=== PATIENT | female | born 2000 | race Caucasian/White ===

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

== ENCOUNTER 2022-01-25 06:36 | Outpatient (CLI) | payer MEDICAID, SELFPAY ==
[2022-01-25] VITALS (8 sets, daily range): BP systolic 107–117; BP diastolic 55–67; PULSE 88–111; RESP 16
--- NOTE | 2022-01-25 07:20 | US_ITS ---
WS: [id number] ULTRASOUND OB FOCUSED HISTORY: placenta evaluation/location. Cervical length. For bleeding COMPARISON: 12/23/2021 and 10/27/2021. Single intrauterine gestation in breech position. The cervix is closed measuring 4.7 cm in length. Ve ry similar to the prior study. The placenta is anterior with no previa or abruption. There is a hypoe choic area between the placenta and the uterine wall but similar to prior studies. No hemorrhage iden tified. Placenta is grade 2. Placenta ends 6 cm above the internal cervical os. heart rate at 144 BPM. Amniotic fluid index: 9.2 cm. Visually the amount of amniotic fluid appears appropriate. US/US OB limited [id number] IMPRESSION: 1. Breech position. 2. Cervix is closed. 3. Grade 2 placenta with no hemorrhage. The placenta and the retroplacental so ft tissues are similar to the prior most recent study of 12/23/2021.
[2022-01-25 07:29] LABS: Bilirubin Urine Neg (Negative); Blood Urine 3+ (Negative); Glucose Urine UA Norm (Normal); Ketones Urine Negative (Negative); Leukocyte Esterase Urine Negative (Negative); Nitrate Urine Negative (Negative); Protein Urine Neg (Negative); Urine Appearance SL Hazy (CLEAR); Urine Color Yellow (Yellow); Urobilinogen Urine Norm (Negative); pH Urine 6 (5-7)
[2022-01-25 07:34] LABS: Bacteria Urine TRACE /hpf; Mucus Urine TRACE /hpf
[2022-01-25 07:35] LABS: Add Urine Culture? No; Amorphous Sediment Urine TRACE /hpf
[2022-01-25 08:56] LABS: Basophils # 0.1 10^3/uL (0.0-0.1); Basophils % 0.5 %; Eosinophils # 0.4 10^3/uL (0.0-0.8); Eosinophils % 2.4 %; Hematocrit 34.6 % (37.0-47.0); Hemoglobin 11.3 g/dL (11.5-15.3); Lymphocytes # 2.5 10^3/uL (1.5-6.5); Lymphocytes % 17.1 %; Mean Corpuscular HGB Conc 32.7 g/dL (30.0-36.0); Mean Corpuscular Hemoglobin 29.4 pg (28.0-34.0); Mean Corpuscular Volume 89.9 fl (81-99); Mean Platelet Volume 11.1 fL (7.4-10.4); Monocytes # 0.7 10^3/uL (0.2-0.9); Neutrophils # 10.76 10^3/uL (1.8-8.0); Neutrophils % 72.8 %; Nucleated Red Blood Cells % 0 %; Platelet Count 195 10^3/cmm (130-400); Red Blood Count 3.85 10^6/uL (4.1-5.3); Red Cell Distribution Width 12.9 % (12.1-15.1); White Blood Count 14.8 10^3/uL (4.5-13.0)
[2022-01-25 09:11] LABS: Alanine Aminotransferase 9 U/L (0-33); Albumin Level 3.7 g/dL (3.5-5.2); Alkaline Phosphatase 92 IU/L (35-105); Anion Gap 16.9 (5-19); Aspartate Amino Transferase 11 U/L (0-32); Blood Urea Nitrogen 7 mg/dL (6-20); Calcium 8.6 mg/dL (8.5-10.5); Carbon Dioxide 20 mmol/L (22-29); Chloride 103 mmol/L (98-107); Globulin 2.8 g/dL (1.3-4.6); Glomerular Filtration Rate 286.6 mL/min (90-130); Glucose 120 mg/dL (65-115); Osmolality Calculated 281 mOsm/kg (285-295); Potassium 3.9 mmol/L (3.5-5.1); Sodium 136 mmol/L (136-145); Total Bilirubin 0.2 mg/dL (0.15-1.2); Total Protein 6.5 g/dL (6.6-8.7)
--- NOTE | 2022-01-25 10:49 | P.TNLD_ITS ---
OB L&D Triage Visit Information: Date of evaluation: 01/28/22 Comments/Additional reason(s) for visit: Vaginal Bleeding 21yo at 24w0d presents for complaint of vaginal bleeding. She woke up in the morning to go to the bathroom and noted area of blood on her sheets- approx baseball sized. No clots noted. She went to the bathroom and saw blood in toilet bowl and noted bright red blood when wiping. She denies cramping, contractions, abdominal pain, no change in vaginal discharge, no dysuria. Normal movement. Denies intercourse in last 24 hours. No other symptoms. Evaluation: Laboratory results: Laboratory Tests 01/25/22 01/25/22 01/25/22 07:15 08:37 08:37 WBC 14.8 H RBC 3.85 L Hgb 11.3 L Hct 34.6 L MCV 89.9 MCH 29.4 MCHC 32.7 RDW 12.9 Plt Count 195 MPV 11.1 H Neut % (Auto) 72.8 Lymph % (Auto) 17.1 [place] % (Auto) 5.0 Eos % (Auto) 2.4 Baso % (Auto) 0.5 Neut # (Auto) 10.76 H Lymph # (Auto) 2.5 [place] # (Auto) 0.7 Eos # (Auto) 0.4 Baso # (Auto) 0.1 Nucleated RBC % (a uto) 0 Nucleated RBCs # 0.0 Sodium 136 Potassium 3.9 Chloride 103 Carbon Dioxide 20 L Anion Gap 16.9 BUN 7 Creatinine 0.3 L GFR Calculation 286.6 H Glucose 120 H Calculated Osmolal ity 281 L Calcium 8.6 Total Bilirubin 0.2 AST 11 ALT 9 Alkaline Phosphata se 92 Total Protein 6.5 L Albumin 3.7 Globulin 2.8 Urine Color Yellow Urine Appearance Sl hazy Urine pH 6 Ur Specific Gravit y 1.020 Urine Protein Neg Urine Glucose (UA) Norm Urine Ketones Negative Urine Blood 3+ H Urine Nitrate Negative Urine Bilirubin Neg Urine Urobilinogen Norm Ur Leukocyte Elsie ase Negative Urine RBC 10-15 H Urine WBC None Ur Squamous Epith Cells 5-10 H Amorphous Sediment Trace Urine Bacteria Trace Urine Mucus Trace Vital signs: Vital Signs - 24 hr 01/25/22 06:51 01/25/22 06:58 01/25/22 08:25 Pulse Rate 111 H 88 Respiratory Rate 16 Blood Pressure 117/66 111/55 01/25/22 09:22 01/25/22 09:52 01/25/22 10:22 Pulse Rate 100 96 95 Respiratory Rate Blood Pressure 110/67 107/57 107/63 Comments: FHT: appropriate for gestational age SSE: cervix appears closed, no pooling blood or fluids, dark blood in small amount present at superior end of vaginal vault, no active bleeding identified- no bleeding from os, no lesions identified Final Diagnosis Final Diagnosis (1) Vaginal bleeding in : Plan: US limited shows anterior placenta, no placenta previa, normal cervical length, no abruption or hemorrhage identified, breech position, normal AFV. Wet prep negative for trich, BV, and yeast. Gonorrhea, chlamydia pending. Urine sent for cx. UA not consistent with UTI. Labs appropriate. After period of approx 4 hours of observation, no additional bleeding noted, no contractions on toco, heart rate appropriate for gestational age. No new sx. Discharge home and given strict precautions for return including but not limited to abdominal pain, cramping, contractions, increase in vaginal bleeding, decreased movement. She is to follow-up with me in clinic this week. Status: Acute Code(s): O46.90 - Antepartum hemorrhage, unspecified, unspecified trimester Coding Level of Care Code Acute Taker Off Drying Kiln for Chg Dom Diagnoses Vaginal bleeding in O46.90
== END 2022-01-25 11:00 | disposition home or self-care (01) ==
LOC: OPOB 06:37 → OBGYN 10:51
PROVIDERS: PCP Family Medicine; Visit Provider Family Medicine
DX: O46.90 Antepartum hemorrhage, unspecified, unspecified trimester (principal); Z3A.00 Weeks of gestation of pregnancy not specified
CPT/HCPCS: 12345; 36415; 76815; 80053; 81001; 85025; 87086; 87210; 87491; 87591; 99211

== ENCOUNTER 2022-02-11 07:26 | Outpatient (CLI) | payer MEDICAID, SELFPAY ==
--- NOTE | 2022-02-11 07:45 | US_ITS ---
WS: [id number] LIMITED OBSTETRICAL ULTRASOUND HISTORY: 23 WKS GESTATION, growth check and incomplete anatomy COMPARISON: 01/25/2022, 12/23/2021, 10/27/2021 Presentation: Cephalic. Cervix: Closed and normal length. Placenta: Anterior, no previa or abruption. Grade: 1 HEART: FHR of 141 BPM. measurements: BPD = 6.5 cm = 26w2d HC = 24.3 cm = 26w3d AC = 20.2 cm = 24w6d FL = 4.9 cm = 26w4d Normal amniotic fluid. EFW: 843 g; AGA by ultrasound: 26w0d FRANCISCA by ultrasound: 05/20/2022 Biometry is internally concordant. Follow-up imaging the heart is normal. The outflow tracts are normal. Normal four-chamber heart . Normal profile. [place] [id number] IMPRESSION: 1. Single intrauterine gestation of 26 weeks 0 days with an EDC of 05/20/2022. Appropriate growth since the first trimester ultrasound. 2. Normal appearance of the heart and outflow tracts and profile.
== END 2022-02-11 07:27 | disposition home or self-care (01) ==
LOC: RAD 07:27
PROVIDERS: PCP Family Medicine; Visit Provider Family Medicine
DX: Z36.89 Encounter for other specified antenatal screening (principal); Z3A.26 26 weeks gestation of pregnancy
CPT/HCPCS: 76816

== ENCOUNTER 2022-02-20 10:30 | Outpatient (CLI) | payer MEDICAID, SELFPAY ==
[2022-02-20] VITALS (8 sets, daily range): BP systolic 115–146; BP diastolic 66–84; PULSE 98–123; BMI 30.8
[2022-02-20] MEDS: alum-mag-hydroxide-sime 30 mL UDC PO (11:24)
[2022-02-20 12:48] LABS: Glucose Point of Care 82 mg/dL (70-110)
[2022-02-20] MEDS: ondansetron 4 MG Tablet PO (13:28)
[2022-02-20] MEDS: famotidine 20 mg Tablet PO (13:28)
== END 2022-02-20 14:35 | disposition home or self-care (01) ==
LOC: OPOB 10:35 → OBGYN 10:36
PROVIDERS: PCP Family Medicine; Visit Provider Family Medicine
DX: O21.9 Vomiting of pregnancy, unspecified (principal); Z3A.00 Weeks of gestation of pregnancy not specified; R12 Heartburn; E86.0 Dehydration
CPT/HCPCS: 36416; 59025; 82962; 99211; Q0162

== ENCOUNTER 2022-03-01 09:03 | Outpatient (CLI) | payer MEDICAID, SELFPAY ==
[2022-03-01] VITALS (13 sets, daily range): BP systolic 106–136; BP diastolic 57–63; PULSE 82–110; RESP 16–17; TEMP 36.6–37.1; O2SAT 99; BMI 30.7
[2022-03-01] MEDS: acetaminophen 500 mg Tablet 1000 MG PO (10:11)
--- NOTE | 2022-03-01 10:50 | US_ITS ---
WS: [id number] ULTRASOUND OB FOCUSED HISTORY: abdominal pain COMPARISON: 02/11/2022 Fetus in transverse position. head on maternal LEFT. Cervix is closed at 4.7 cm. heart rate at 157 BPM. Amniotic fluid index: 10.5 cm which is just below the 50th percentile. Largest vertical pocket of amn iotic fluid 3.3 cm. Placenta is anterior with no previa or abruption. US/US OB limited [id number] IMPRESSION: 1. Cervix is closed measuring 4.7 cm in length. If there is continued concern for cervical length measurement recommend transvaginal evaluation. 2. Normal cardiac activity. 3. Normal amniotic fluid index.
[2022-03-01] MEDS: famotidine 20 mg Tablet PO (11:38)
== END 2022-03-01 12:17 | disposition home or self-care (01) ==
LOC: OPOB 09:03 → OBGYN 09:05
PROVIDERS: PCP Family Medicine; Visit Provider Family Medicine
DX: O26.899 Other specified pregnancy related conditions, unspecified trimester (principal); Z3A.00 Weeks of gestation of pregnancy not specified; R10.9 Unspecified abdominal pain
CPT/HCPCS: 59025; 76815; 99211

== ENCOUNTER 2022-04-12 14:30 | Outpatient (CLI) | payer MEDICAID, SELFPAY ==
[2022-04-12 14:35] VITALS: BMI 30.3
[2022-04-12 14:39] VITALS: BP 127/68; PULSE 136
[2022-04-12 14:55] VITALS: BP 115/60; PULSE 105
[2022-04-12 15:00] VITALS: BP 115/60; PULSE 105
== END 2022-04-12 15:00 | disposition home or self-care (01) ==
LOC: OPOB 14:34 → OBGYN 14:35
PROVIDERS: PCP Family Medicine; Visit Provider Family Medicine
DX: O24.419 Gestational diabetes mellitus in pregnancy, unspecified control (principal); Z3A.00 Weeks of gestation of pregnancy not specified
CPT/HCPCS: 59025; 99211

== ENCOUNTER 2022-04-19 13:30 | Outpatient (CLI) | payer MEDICAID, SELFPAY ==
[2022-04-19 13:44] VITALS: BMI 30.4
[2022-04-19 13:56] VITALS: RESP 16
[2022-04-19 13:59] VITALS: BP 118/67; PULSE 111
== END 2022-04-19 14:17 | disposition home or self-care (01) ==
LOC: OPOB 13:32 → OBGYN 13:34
PROVIDERS: PCP Family Medicine; Visit Provider Family Medicine
DX: O26.899 Other specified pregnancy related conditions, unspecified trimester (principal); Z3A.00 Weeks of gestation of pregnancy not specified
CPT/HCPCS: 59025

== ENCOUNTER 2022-04-20 13:24 | Outpatient (CLI) | payer MEDICAID, SELFPAY ==
[2022-04-20 13:31] VITALS: RESP 16
[2022-04-20 13:32] VITALS: BMI 30.9
[2022-04-20 14:03] VITALS: BP 113/62; PULSE 108
[2022-04-20 14:13] LABS: Actim Prom Negative
--- NOTE | 2022-04-20 14:31 | US_ITS ---
WS: [id number] ULTRASOUND OB FOCUSED HISTORY: leaking fluid, amniotic fluid index. COMPARISON: 04/18/2020 Single intrauterine gestation in breech position. heart rate at 124 BPM. Grade 3 placenta is anterior. Cervix is poorly visualized due to late gestational age. Amniotic fluid index: 10.2 cm. Largest vertical pocket of amniotic fluid is 4.2 cm. There is been a s light decrease in the amniotic fluid index since the prior study. US/US OB limited [id number] IMPRESSION: 1. Normal amniotic fluid index. Largest vertical pocket is 4.2 cm. 2. Very slight decrease in the amniotic fluid index since the prior study. 3. Grade 3 placenta.
[2022-04-20 15:07] VITALS: BP 109/66; PULSE 100
[2022-04-20 17:17] LABS: Nitrazine Paper, PH Negative
== END 2022-04-20 14:04 | disposition home or self-care (01) ==
LOC: OPOB 13:25 → OBGYN 13:26
PROVIDERS: PCP Family Medicine; Visit Provider Family Medicine
DX: O26.899 Other specified pregnancy related conditions, unspecified trimester (principal); Z3A.00 Weeks of gestation of pregnancy not specified; N89.8 Other specified noninflammatory disorders of vagina
CPT/HCPCS: 59025; 76815; 83986; 84112; 99211

== ENCOUNTER 2022-04-22 15:23 | Outpatient (CLI) | payer MEDICAID, SELFPAY ==
[2022-04-22 15:28] VITALS: BP 122/72; PULSE 111
[2022-04-22 15:31] VITALS: RESP 16
[2022-04-22 15:32] VITALS: BMI 31.3
[2022-04-22 15:44] VITALS: BP 115/61; PULSE 100
[2022-04-22 15:58] VITALS: BP 126/62; PULSE 103
[2022-04-22 16:13] VITALS: BP 106/62; PULSE 93
== END 2022-04-22 16:22 | disposition home or self-care (01) ==
LOC: OPOB 15:24 → OBGYN 15:25
PROVIDERS: PCP Family Medicine; Visit Provider Family Medicine
DX: O24.419 Gestational diabetes mellitus in pregnancy, unspecified control (principal); Z3A.00 Weeks of gestation of pregnancy not specified; O26.899 Other specified pregnancy related conditions, unspecified trimester; R10.9 Unspecified abdominal pain
CPT/HCPCS: 59025

== ENCOUNTER 2022-04-26 10:17 | Inpatient (IN) | payer MEDICAID, SELFPAY ==
[2022-04-26] VITALS (24 sets, daily range): BP systolic 105–148; BP diastolic 34–93; PULSE 79–127; RESP 15–17; TEMP 36.6–36.7; O2SAT 97–100; BMI 30.8
[2022-04-26 10:31] LABS: Basophils # 0.1 10^3/uL (0.0-0.1); Basophils % 0.6 %; Eosinophils # 0.5 10^3/uL (0.0-0.8); Eosinophils % 3.5 %; Hematocrit 32.3 % (37.0-47.0); Lymphocytes # 2.2 10^3/uL (1.5-6.5); Lymphocytes % 15.9 %; Mean Corpuscular Hemoglobin 25.4 pg (28.0-34.0); Mean Platelet Volume 12.7 fL (7.4-10.4); Monocytes # 0.8 10^3/uL (0.2-0.9); Monocytes % 5.8 %; Neutrophils % 73.2 %; Nucleated Red Blood Cells % 0 %; Platelet Count 231 10^3/cmm (130-400); Red Blood Count 3.94 10^6/uL (4.1-5.3); Red Cell Distribution Width 13.6 % (12.1-15.1); White Blood Count 13.7 10^3/uL (4.5-13.0)
[2022-04-26 11:03] LABS: Blood Urea Nitrogen 5 mg/dL (6-20); Calcium 9.1 mg/dL (8.5-10.5); Carbon Dioxide 20 mmol/L (22-29); Chloride 105 mmol/L (98-107); Glomerular Filtration Rate 205.6 mL/min (90-130); Glucose 109 mg/dL (65-115); Osmolality Calculated 280 mOsm/kg (285-295); Sodium 136 mmol/L (136-145)
--- NOTE | 2022-04-26 12:20 | PM.OBGYHP ---
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 History of Present Illness Geo Monique is a 21 year old female Present Details : 2 Para: 0 Date of Last Menstrual Period: 01/27/20 Calculated Date of Delivery: 11/02/20 Gestational Age Based on Last Menstrual Period: 117 Medications/Allergies Home Medications Medication Instructions Recorded Confirmed Last Taken Type metformin 500 mg tablet 500 mg PO DAILY 04/20/22 04/26/22 Unknown History omeprazole 20 mg capsule,delayed 20 mg PO BID 04/20/22 04/26/22 04/26/22 07:00 History release vit no.105-iron 30 1 pkg PO DAILY 04/20/22 04/26/22 Unknown History mg-folic acid 1.4 mg-dha 300 mg oral pack Allergies Allergy/AdvReac Type Severity Reaction Status Date / Time promethazine AdvReac Intermediate ADR-Vomitin Verified 08/11/21 09:24 g PFSH 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 PFSH: Medical History No pertinent past medical history Neghx: Htn, DM, Thyroid, DVT/PE PCP: none Surgical History H/O oral surgery wisdom teeth extraction Family History Grandmother Breast cancer Paternal grandmother Unknown Family history of thyroid problem Paternal side Denies family history of Colon cancer Ovarian cancer Diabetes Heart disease Hyperlipidemia Hypertension Uterine cancer Stroke History History History 1 Term 0 0 Miscarriages/Ectopic 1 Living Children 0 Vitals/I&O/Wt Last Vital Signs Temp 97.8 F 04/26/22 10:30 Pulse 127 H 04/26/22 09:45 Resp 15 04/26/22 10:30 BP 143/75 04/26/22 09:45 O2 Del Method 04/26/22 10:30 Weight last 48 hrs Weight 191 lb Data : 04/26/22 09:50 04/26/22 09:50 Coding Level of Care Code Acute Staff Electrical Engineer for Chg Dom
[2022-04-26 14:24] LABS: Actim Prom Negative
--- NOTE | 2022-04-26 15:23 | ANES.PREANE2 ---
Pre-Anesthetic Assessment Height/Weight: Height 1.68 m Weight 86.636 kg Temp Pulse Resp BP O2 Del Method 97.8 F 94 15 112/68 04/26/22 10:30 04/26/22 14:58 04/26/22 10:30 04/26/22 14:58 04/26/22 10:30 Preop Diagnosis: Breech Presentation Familial anesthetic complications: none Was Beta Johnathon taken within 24 hours: N/A Was Clonidine taken within 24 hours: N/A Last intake: 829 Social No alcohol and No tobacco Exam alert, oriented x 3, clear to auscultation bilaterally and regular rate & rhythm Airway Mallampati: Class II Dentition: full GI Gastroesophageal Reflux Disease Metabolic Diabetes Mellitus (gestatational DM) Anesthetic Plan ASA status: 2 Anesthesia: Regional (specify below) (spinal) Risk of > 500 ml blood loss (7ml/kg in children): Yes, adequate IV access and fluids planned Medications/Allergies Home Medications Medication Instructions Recorded Confirmed Last Taken Type metformin 500 mg tablet 500 mg PO DAILY 04/20/22 04/26/22 Unknown History omeprazole 20 mg capsule,delayed 20 mg PO BID 04/20/22 04/26/22 04/26/22 07:00 History release vit no.105-iron 30 1 pkg PO DAILY 04/20/22 04/26/22 Unknown History mg-folic acid 1.4 mg-dha 300 mg oral pack Allergies Allergy/AdvReac Type Severity Reaction Status Date / Time promethazine AdvReac Intermediate ADR-Vomitin Verified 08/11/21 09:24 g Current Medications Generic Name Dose Route Start Last Admin Trade Name Jennie PRN Reason Stop Dose Admin Lactated Ringer's 1,000 mls @ 125 mls/hr 04/26/22 10:00 04/26/22 15:16 Lactated Ringers IV Not Given .Q8H [facility] PFSH Anesthesia Medical History No pertinent past medical history Neghx: Htn, DM, Thyroid, DVT/PE PCP: none Surgical History H/O oral surgery wisdom teeth extraction Family History Grandmother Breast cancer Paternal grandmother Unknown Family history of thyroid problem Paternal side Denies family history of Colon cancer Ovarian cancer Diabetes Heart disease Hyperlipidemia Hypertension Uterine cancer Stroke Female Reproductive History Date of last menstrual period: 01/27/20 : 2 Data Anesthesia : 04/26/22 09:50 04/26/22 09:50 Short CBC 04/26/22 Range/Units 09:50 WBC 13.7 H (4.5-13.0) 10^3/uL Hgb 10.0 L (11.5-15.3) g/dL Hct 32.3 L (37.0-47.0) % MCV 82.0 (81-99) fl Plt Count 231 (130-400) 10^3/cmm Neut % (Auto) 73.2 % Neut # (Auto) 10.00 H (1.8-8.0) 10^3/uL BMP 04/26/22 09:50 Sodium 136 Potassium 4.0 Chloride 105 Carbon Dioxide 20 L BUN 5 L Creatinine 0.4 L Glucose 109 Calcium 9.1 Cardiac Studies: No Data to Display
[2022-04-26] MEDS: ondansetron 2 mg/ML SDV 2 mL 4 MG IVP (16:31)
[2022-04-26] MEDS: lactated ringers 1,000 ML 999 ML IV (17:13)
--- NOTE | 2022-04-26 17:37 | P.HP_ITS ---
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 Denies VB, LOF, cramping/contractions. Normal movement. Presented a few days ago for leaking fluid with negative ROM w/u at the time. course remarkable for GDMA2 controlled on metformin 500mg daily, GERD controlled with omeprazole. 1 episode vaginal bleeding in 2nd trimester that resolved spontaneously. care has been good and starting in first trimester. Present Details : 2 Para: 0 Date of Last Menstrual Period: 07/15/21 Calculated Date of Delivery: 04/21/22 Gestational Age Based on Last Menstrual Period: 40 Dating criteria OB: based on 1st trimester US only (11 wk US with EDC 05/17/22) Labs Blood type OB HPI: O (+) positive Rubella: Immune RPR: Negative GBS: Negative HBsAG: Negative Other Lab Information: Hep C ab neg HIV NR Initial H/H on 10/12/21 13.1/38.5 UCx negative GC/Chlam negative 1hr GTT failed (158) 3hr GTT failed (92/187/165/149) Repeat H/H 03/04/22 11.7/33.5 GBS neg Review of Systems Const: Denies: fever(s) Card: Denies: chest pain, swelling of feet/ankles or dyspnea on exertion Resp: Denies: dyspnea or productive cough GI: Reports: heartburn; Denies: nausea or vomiting : Denies: vaginal bleeding or vaginal discharge Skin/Breast: Denies: rash Medications/Allergies Home Medications Medication Instructions Recorded Confirmed Last Taken Type metformin 500 mg tablet 500 mg PO DAILY 04/20/22 04/26/22 Unknown History omeprazole 20 mg capsule,delayed 20 mg PO BID 04/20/22 04/26/22 04/26/22 07:00 History release vit no.105-iron 30 1 pkg PO DAILY 04/20/22 04/26/22 Unknown History mg-folic acid 1.4 mg-dha 300 mg oral pack Allergies Allergy/AdvReac Type Severity Reaction Status Date / Time promethazine AdvReac Intermediate ADR-Vomitin Verified 04/26/22 17:32 g PFSH SIGNAL TECHNICIAN PFSH: Medical History (Updated 04/26/22 @ 18:04 by Yue Bruno DO) No pertinent past medical history Neghx: Htn, DM, Thyroid, DVT/PE PCP: none Vaginal bleeding in Surgical History H/O oral surgery wisdom teeth extraction Family History Grandmother Breast cancer Paternal grandmother Unknown Family history of thyroid problem Paternal side Denies family history of Colon cancer Ovarian cancer Diabetes Heart disease Hyperlipidemia Hypertension Uterine cancer Stroke History History History 2 Term 0 0 Miscarriages/Ectopic 1 Living Children 0 Care FRANCISCA Calculator Estimated Delivery Date Method Current WG Current Estimate 05/17/22 Ultrasound #1 37w 0d Vitals/I&O/Wt Last Vital Signs Temp 97.8 F 04/26/22 10:30 Pulse 94 04/26/22 14:58 Resp 15 04/26/22 10:30 BP 112/68 04/26/22 14:58 O2 Del Method 04/26/22 10:30 Weight last 48 hrs Weight 191 lb Physical Exam Const: COMMON NORMALS: no acute distress, patient oriented x3, healthy appearing and alert Resp: COMMON NORMALS: normal respiratory effort and clear to auscultation bilaterally Cardio: COMMON NORMALS: regular rate, regular rhythm, S1 normal heart sound present, S2 normal heart sound present and No murmurs present (Cardio) Extremity: COMMON NORMALS: normal to inspection, no calf tenderness and no pedal edema Psych: COMMON NORMALS: mental status grossly normal Data : 04/26/22 09:50 04/26/22 09:50 Results OB Ultrasound Anatomy US 12/23/21: Anterior placenta- grade 1, Normal anatomy apart from poorly visualized profile and outflow tracts Repeat Anatomy US 02/11/22: Anterior placenta grade 1, normal BLANK, normal outflow tracts, normal profile US today 04/26/22 with BLANK 4.6cm, SDP 3.1cm, breech presentation, grade 3 placenta A&P Assessment and plan (1) Oligohydramnios: 21yo at 37w0d by 11wk US not c/w LMP presenting with new onset brett gohydramnios on US today. Question of IUGR as well on US today although difficult to tell due to low fluid. Plan to proceed to primary today due to BLANK<5 and possible IUGR with persistent breech presentation after discussion and consult with Dr. Patino- primary surgeon. Status: Acute (2) Gestational diabetes: GDMA2. Controlled on metformin. Status: Acute (3) Gastroesophageal reflux disease: Controlled on omeprazole. Status: Acute (4) Breech presentation: Status: Acute Attestations Medical Necessity Statement*: Geo Monique's hospital stay will require greater than 2 midnights for section due to oligohydramnios. Coding Level of Care Code Acute Silo Man for Chg Fwd Diagnoses Oligohydramnios O41.00X0 Gestational diabetes O24.419 Gastroesophageal reflux disease K21.9 Breech presentation O32.1XX0
[2022-04-26] MEDS: famotidine 20 mg/2 mL INJ IVP (17:46)
[2022-04-26] MEDS: citric acid-sodium citrate 30 mL UDC PO (17:46)
[2022-04-26] MEDS: metoclopramide 5 mg/mL SDV 2 mL 10 MG IVP (17:46)
--- NOTE | 2022-04-26 18:01 | PM.CONSULT ---
Providers/Reason For Consult Consulting Physician/Specialty*: Manuel Patino MD/Family practice/OB Reason for Consult*: Primary low transverse section due to breech presentation Attending Physician: Yue Bruno DO Primary Care Provider: Yue Bruno DO History of Present Illness History of Present Illness Geo Monique is a 21 year old @ 37.0 weeks by 11 wk US inconsistent with LMP. Preg c/b anemia, severe oligohydramnios (BLANK 4.6), borderline IUGR, gDM on Metformin, teen , 2nd TM bleeding, breech presentation. I am consulting on this patient for Dr. Bruno for care. The patient presented to L&D due to a low blank of 4.6. The patient had been having gradually declining BLANK and on ultrasound this morning it was 4.6. There was concern for borderline IUGR as well. Because of the severe oligohydramnios, it was felt best to proceed with delivery. The patient was found to be in breech position and because of the low BLANK the chances of being able to do an external cephalic version would be low. I discussed this with the patient and her and they decided to not attempt an ECV and proceed with a primary low transverse section. The patient has had some nausea, however no significant fever, cough, chest pain, shortness of breath, leaks fluid, vaginal bleeding, dysuria. Medications/Allergies Home Medications Medication Instructions Recorded Confirmed Last Taken Type metformin 500 mg tablet 500 mg PO DAILY 04/20/22 04/26/22 Unknown History omeprazole 20 mg capsule,delayed 20 mg PO BID 04/20/22 04/26/22 04/26/22 07:00 History release vit no.105-iron 30 1 pkg PO DAILY 04/20/22 04/26/22 Unknown History mg-folic acid 1.4 mg-dha 300 mg oral pack Allergies Allergy/AdvReac Type Severity Reaction Status Date / Time promethazine AdvReac Intermediate ADR-Vomitin Verified 04/26/22 17:32 g Current Medications Generic Name Dose Route Start Last Admin Trade Name Freq PRN Reason Stop Dose Admin Lactated Ringer's 1,000 mls @ 125 mls/hr 04/26/22 10:00 04/26/22 15:16 Lactated Ringers IV Not Given .Q8H [facility] PFSH Acute PFSH: Medical History No pertinent past medical history Neghx: Htn, DM, Thyroid, DVT/PE PCP: none Vaginal bleeding in Surgical History H/O oral surgery wisdom teeth extraction Family History Grandmother Breast cancer Paternal grandmother Unknown Family history of thyroid problem Paternal side Denies family history of Colon cancer Ovarian cancer Diabetes Heart disease Hyperlipidemia Hypertension Uterine cancer Stroke Social History (Updated 04/26/22 @ 18:05 by Manuel Patino MD) Smoking and tobacco status: never smoked Alcohol intake: never Substance/Drug Use: never Current occupation: Works at [employer] Female Reproductive History: Date of last menstrual period: 01/27/20 : 2 Vitals/I&O/Wt Last Vital Signs Temp 97.8 F 04/26/22 10:30 Pulse 94 04/26/22 14:58 Resp 15 04/26/22 10:30 BP 112/68 04/26/22 14:58 O2 Del Method 04/26/22 10:30 Weight last 48 hrs Weight 191 lb Physical Exam Narrative: General: Alert and oriented x3 Eyes: Pupils equal round and reactive to light and accommodation Mouth: Mucous membranes moist, pharynx non-erythematous Cardiac: Regular rate and rhythm without murmurs Lungs: Clear to auscultation bilaterally without wheezes, crackles or rhonchi Abdomen: Soft, non-tender, fundus consistent with gestational age Extremities: Trace edema in the bilateral lower extremities Data : 04/26/22 09:50 04/26/22 09:50 A&P Assessment and plan (1) Oligohydramnios: Status: Acute (2) Breech presentation: Status: Acute (3) Gestational diabetes: Status: Acute (4) Intrauterine : Status: Acute Plan I have discussed with the patient and her regarding the risks and benefits of delivery now versus waiting as well as the risks of a section. We also discussed the need for delivery via due to breech delivery. The patient is in agreement with proceeding with a primary low transverse section. All questions were answered. Consult Attestations Medical Necessity Statement: The patient will be here for greater than 2 midnights due to routine intrapartum and management of labor and delivery. Coding Level of Care Code Acute Digital Publishing Specialist for Chg Fwd Diagnoses Oligohydramnios O41.00X0 Breech presentation O32.1XX0 Gestational diabetes O24.419 Intrauterine Z34.90
--- NOTE | 2022-04-26 19:40 | P.PCN_ITS ---
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
--- NOTE | 2022-04-26 19:40 | PM.PACU ---
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
--- NOTE | 2022-04-26 20:12 | P.OP_ITS ---
Operative Report Date of procedure: April 26, 2022 Pre-op diagnosis: 1. Intrauterine at 37.0 weeks 2. Anemia 3. Severe oligohydramnios 4. Borderline IUGR 5. Gestational diabetes on metformin 6. Teen 7. Second trimester bleeding 8. Breech presentation Post-op diagnosis: 1. Intrauterine status post primary low transverse section at 37.0 weeks 2. Anemia 3. Severe oligohydramnios 4. Borderline IUGR 5. Gestational diabetes on metformin 6. Teen 7. Second trimester bleeding 8. Breech presentation 9. Delivery of healthy female weighing 6 pounds 2 ounces with Apgars of 6. 7 and 9 Post-op findings: 1. Intact placenta with central umbilical cord insertion site. Heavy scattered calcifications noted 2. Healthy infant female weighing 6 pounds 2 ounces Procedure done: Primary low transverse section Specimens removed/disposition: Placenta discarded Surgeon: Manuel Patino MD Estimated blood loss (mL): 400 IV fluids: 1700 Urine output: 200 Findings: Geo Monique is a 21 year old G2 NOW P1 status post primary low-transverse section for breech presentation @ 37.0 weeks by 11 wk US inconsistent with LMP. Preg c/b anemia, severe oligohydramnios (BLANK 4.6), borderline IUGR, gDM on Metformin, teen , 2nd TM bleeding, breech presentation. Brief History: The patient presented to labor delivery triage due to a low BLANK at an outlying clinic. The BLANK was noted to be 4.6. The fluid had been gradually decreasing. An active problem was negative. Due to the severe oligohydramnios, was felt best to proceed with delivery. The infant was in the breech position and was well in the pelvis. The patient declined an attempt at ECV. It was noted that the likely success rate would have been low due to low BLANK. For this reason we plan for a primary low transverse section. Procedure: After informed consent was obtained, the patient was taken to the operating room and the patient was prepped and draped in a normal sterile fashion in the dorsal supine position.? A spinal was placed and adequate anesthesia was obtained.? At 1822 on 04/26/2022 a Pfannenstiel skin incision was made and carried through to the underlying layer of fascia using a scalpel.? The fascial incision was then extended laterally using curved Mayos.? The fascia was then grasped with Misty clamps and the underlying rectus muscles were dissected off taking care to avoid injury to the underlying tissues.? The peritoneum was entered bluntly with one digit.? It was then bluntly.? The bladder blade was placed and the vesicouterine peritoneum was well below the lower uterine segment of the uterus.? The uterine incision was made in the lower uterine segment in a transverse fashion with the scalpel at 1826.? The amniotic membrane was entered bluntly and a small amount of clear fluid was noted.? The infant was noted to be in the breech position. First the feet were showing, so they were removed 1 leg at a time. Next the was removed up to the arms. The right arm was swept medially and the right arm was delivered. Next the left arm was swept medially and delivered. Finally the 's head was delivered without complication at 1826 on 04/26/2022. There was a nuchal cord present. The mouth and nose were suctioned. The cord was clamped and cut.?? The had good tone initially and took a breath shortly after placing the on the warmer where the pediatric nurses were awaiting to care for her. ? The placenta was then manually expressed.? The uterus was exteriorized from the abdomen.? A wet lap was used to clear the uterus of clots and debris.? The bladder blade was reinserted and the uterine incision was closed using 0 chromic in a running locking fashion.? The uterus was noted to be firm.? A second layer of the same suture was used in the same manner.? Excellent hemostasis was obtained. Next the posterior cul-de-sac was inspected and was cleared of any blood. The gutters were cleared of any further clots and debris and the uterine incision was again inspected and hemostasis was noted.? The subfascial tissue was inspected for hemostasis and the peritoneum was re-approximated using 2-0 plain in a running fashion.? The fascia was then re-approximated using 0 Vicryl in a running fashion.? The subcutaneous tissue was inspected for hemostasis.? Ahsan's fascia was then re-approximated using 3-0 plain in a running fashion.? Good hemostasis was noted.? The subcutaneous tissue was then re-approximated us ing a subcuticular stitch.? The patient tolerated the procedure well and was recovered in stable condition.? Estimated blood loss was 400 mL. Urine in the Edwards catheter was clear. The patient was taken to recovery in good condition. The infant did need resuscitative measures taken initially at due to a bradyarrhythmia, however is doing well at this time.
[2022-04-26] MEDS: lanolin oint 7 gm 1 APPLIC TOPICAL (21:36)
[2022-04-26] MEDS: oxyCODONE-APAP 5-325 mg Tablet PO (21:37)
[2022-04-26] MEDS: dextrose 5%-lactated ringers 1,000 ML 125 ML IV (21:37)
[2022-04-27 00:15] VITALS: BP 126/77; PULSE 99; RESP 17; O2SAT 97
[2022-04-27 01:15] VITALS: BP 111/73; PULSE 101; RESP 17; O2SAT 96
[2022-04-27] MEDS: ketorolac 30 mg/mL INJ IVP (01:26)
[2022-04-27] MEDS: diphenhydrAMINE 50 mg/mL SDV 1mL 25 MG IVP (01:31)
[2022-04-27 03:15] VITALS: BP 107/65; PULSE 86; RESP 17; TEMP 37.1
[2022-04-27] MEDS: lactated ringers 1,000 ML 999 ML IV (04:26)
--- NOTE | 2022-04-27 08:00 | PM.PN ---
Subjective Subjective: Patient seen and briefly examined this morning. Edwards still in place, has transferred to chair and back to bed, otherwise no trial of ambulation. Also has not yet tried to eat. Pain is well controlled. Denies calf pain or swelling. ok- poor latch overnight, but improved this morning. Vitals/I&O/Wt Last Vital Signs Temp 97.9 F 04/27/22 11:53 Pulse 99 04/27/22 11:53 Resp 14 04/27/22 11:53 BP 108/74 04/27/22 11:53 Pulse Ox 96 04/27/22 01:15 O2 Del Method 04/27/22 01:15 04/27/22 04/27/22 04/27/22 06:59 14:59 22:59 Intake Total 1000.000 / 3700.000 1000 / 1000 Output Total 200 / 1010 850 / 850 2000 / 2850 Balance 800.000 / 2690.000 150 / 150 -2000 / -1850 Weight last 48 hrs Weight 191 lb Physical Exam Const: COMMON NORMALS: no acute distress, patient oriented x3, healthy appearing and alert Resp: COMMON NORMALS: normal respiratory effort Cardio: COMMON NORMALS: Peripheral pulses 2+ throughout PERIPHERAL PULSES: Peripheral pulses 2+ throughout Extremity: COMMON NORMALS: no calf tenderness NARRATIVE EXTREMITY EXAM: trace bilateral pitting edema Neuro: COMMON NORMALS: patient oriented x3 SENSORIUM/ORIENTATION: Yes alert Urinary Catheter Management: Edwards Latex: Cath Placed During This Visit: yes, but has since been removed by the nurse Reason for Continuing Indwelling Catheter: Perioperative Use in Selected Surgeries Urinary Catheter Date of Insertion: 04/26/22 Urinary Catheter Time of Insertion: 18:07 Date Urinary Catheter Removed: 04/27/22 Time Urinary Catheter Discontinued: 15:00 Data : 04/27/22 07:55 04/26/22 09:50 A&P Assessment and plan (1) Status post section: Status: Acute Plan POD#1 s/p primary at 37w0d due to breech presentation with oligohydramnios and possible IUGR. Doing well. Further management per Dr. Patino- primary surgeon. Attestations Medical Necessity Statement*: Geo Renee Kayden's hospital stay will require greater than 2 midnights for section. Coding Level of Care Code Acute Plant Protection Superintendent for Chg Fwd Diagnoses Status post section Z98.891
--- NOTE | 2022-04-27 08:36 | P.PN_ITS ---
Subjective Subjective: The patient is doing well today. She is fatigued. She is up in a chair at bedside. She is ambulating. Her urine output was low overnight, so she received a 500 mL fluid bolus. Her urine output is improving. The patient is not nauseous and is passing gas. She has not attempted to eat or drink yet. Her bleeding is decreasing well. Her pain is currently well controlled. Vitals/I&O/Wt Last Vital Signs Temp 98.8 F 04/27/22 03:15 Pulse 86 04/27/22 03:15 Resp 17 04/27/22 03:15 BP 107/65 04/27/22 03:15 Pulse Ox 96 04/27/22 01:15 O2 Del Method 04/27/22 01:15 04/26/22 04/27/22 04/27/22 22:59 06:59 14:59 Intake Total 2700 / 2700 1000.000 / 3700.000 Output Total 810 / 810 200 / 1010 250 / 250 Balance 1890 / 1890 800.000 / 2690.000 -250 / -250 Weight last 48 hrs Weight 191 lb Physical Exam Narrative: General: Alert and oriented x3 Cardiac: Regular rate and rhythm without murmurs Lungs: Clear to auscultation bilaterally without wheezes, crackles or rhonchi Abdomen: Soft, mild to moderate tenderness over uterus. The uterus is firm and 4 cm below the umbilicus. Extremities: +1 pitting edema in the bilateral lower extremities Urinary Catheter Management: Edwards Latex: Cath Placed During This Visit: yes Reason for Continuing Indwelling Catheter: Required Immobilization for Trauma or Surgery or Anesthesia Urinary Catheter Date of Insertion: 04/26/22 Urinary Catheter Time of Insertion: 18:07 Data : 04/26/22 09:50 04/26/22 09:50 A&P Assessment and plan (1) Status post section: The patient had a section yesterday. She is doing well at this time. We will continue to monitor urine output and once it is stable we will plan for removing the catheter. The patient was encouraged to ambulate and work on taking in fluids by mouth. Currently her pain is well controlled. We will continue with routine post care and follow-up tomorrow to see if she is ready for discharge home at that time yet or if she needs another day. All questions were answered. Status: Acute Attestations Medical Necessity Statement*: The patient will be here for greater than 2 midnights due to routine intrapartum and management of labor and delivery. Coding Level of Care Code Acute Wood Boatbuilder Apprentice for Chg Fwd Diagnoses Status post section Z98.891
[2022-04-27 08:38] LABS: Hematocrit 30.2 % (37.0-47.0); Hemoglobin 9.3 g/dL (11.5-15.3); Mean Corpuscular HGB Conc 30.8 g/dL (30.0-36.0); Mean Corpuscular Hemoglobin 25.8 pg (28.0-34.0); Mean Corpuscular Volume 83.9 fl (81-99); Mean Platelet Volume 12.2 fL (7.4-10.4); Platelet Count 222 10^3/cmm (130-400); Red Cell Distribution Width 13.6 % (12.1-15.1); White Blood Count 15.8 10^3/uL (4.5-13.0)
[2022-04-27 11:53] VITALS: BP 108/74; PULSE 99; RESP 14; TEMP 36.6
[2022-04-27] MEDS: ibuprofen 800 mg tablet PO ×2 (16:11→20:28)
[2022-04-27] MEDS: docusate sodium 100 mg Capsule PO (20:27)
[2022-04-27] MEDS: ferrous sulfate EC 325 mg Tablet PO (20:27)
[2022-04-27 22:00] VITALS: BP 100/63; PULSE 99; RESP 16; O2SAT 97
[2022-04-28] MEDS: HYDROcodone-acetaminophen 5-325 mg Tablet PO ×2 (00:45→08:52)
--- NOTE | 2022-04-28 01:04 | PC.NURSE ---
Infant having difficulty latching and maintaining latch. Discussed nipple gutierrez with patient, education provided on use, cleaning, weaning from shield. 24 mm shield issued. Infant was able to successfully latch and maintain latch with shield.
[2022-04-28 04:15] VITALS: BP 109/63; PULSE 72; RESP 16; O2SAT 97
--- NOTE | 2022-04-28 06:06 | PM.DCS ---
Discharge Providers Date of Admission: 04/26/22 10:17 Date of Discharge: April 28, 2022 Attending Provider at Admission: Yue Bruno DO Attending Provider at Discharge: Yue Bruno DO Consults: Manuel Patino MD Primary Care Provider: Yue Bruno DO Diagnoses at Discharge Discharge Diagnosis (1) Status post section: Status: Acute Other Information Additional DC diagnoses/information: 1.? Intrauterine status post primary low transverse section at 37.0 weeks 2.? Anemia 3.? Severe oligohydramnios 4.? Borderline IUGR 5.? Gestational diabetes on metformin 6.? Teen 7.? Second trimester bleeding 8.? Breech presentation 9.? Delivery of healthy infant female weighing 6 pounds 2 ounces with Apgars of 6, 7 and 9 Reason for Visit Reason for Visit: NST Brief History: Geo Monique is a 21 year old G2 NOW P1 status post primary low-transverse section for breech presentation @ 37.0 weeks by 11 wk US inconsistent with LMP. Preg c/b anemia, severe oligohydramnios (BLANK 4.6), borderline IUGR, gDM on Metformin, teen , 2nd TM bleeding, breech presentation. Brief History: The patient presented to labor delivery triage due to a low BLANK at an outlying clinic.? The BLANK was noted to be 4.6.? The fluid had been gradually decreasing.? An active problem was negative.? Due to the severe oligohydramnios, was felt best to proceed with delivery.? The was in the breech position and was well in the pelvis.? The patient declined an attempt at ECV.? It was noted that the likely success rate would have been low due to low BLANK.? For this reason we plan for a primary low transverse section. Hospital Course Hospital Course The patient had a primary low-transverse section secondary to breech presentation. The patient has not had any complications after delivery and is ambulating, voiding, passing gas and tolerating food by mouth. Her pain is well controlled. Her bleeding is decreasing well. We will plan to discharge home today and follow-up with me in 1 week. She is to follow-up with her primary care physician at 6 weeks . Physical Exam Narrative: General: Alert and oriented x3 Cardiac: Regular rate and rhythm without murmurs Lungs: Clear to auscultation bilaterally without wheezes, crackles or rhonchi Abdomen: Soft, mild tenderness over uterus. The uterus is firm and 2 cm below the umbilicus. Incision is clean and dry without signs of infection or dehiscence. Extremities: Trace edema in the bilateral lower extremities Urinary Catheter Management: Edwards Latex: Cath Placed During This Visit: yes, but has since been removed by the nurse Reason for Continuing Indwelling Catheter: Perioperative Use in Selected Surgeries Urinary Catheter Date of Insertion: 04/26/22 Urinary Catheter Time of Insertion: 18:07 Date Urinary Catheter Removed: 04/27/22 Time Urinary Catheter Discontinued: 15:00 Discharge Data Studies Completed and Pending Laboratory Results WBC 15.8 10^3/uL (4.5-13.0) H 04/27/22 07:55 RBC 3.60 10^6/uL (4.1-5.3) L 04/27/22 07:55 Hgb 9.3 g/dL (11.5-15.3) L 04/27/22 07:55 Hct 30.2 % (37.0-47.0) L 04/27/22 07:55 MCV 83.9 fl (81-99) 04/27/22 07:55 MCH 25.8 pg (28.0-34.0) L 04/27/22 07:55 MCHC 30.8 g/dL (30.0-36.0) 04/27/22 07:55 RDW 13.6 % (12.1-15.1) 04/27/22 07:55 Plt Count 222 10^3/cmm (130-400) 04/27/22 07:55 MPV 12.2 fL (7.4-10.4) H 04/27/22 07:55 Neut % (Auto) 73.2 % 04/26/22 09:50 Lymph % (Auto) 15.9 % 04/26/22 09:50 Hemphill % (Auto) 5.8 % 04/26/22 09:50 Eos % (Auto) 3.5 % 04/26/22 09:50 Baso % (Auto) 0.6 % 04/26/22 09:50 Neut # (Auto) 10.00 10^3/uL (1.8-8.0) H 04/26/22 09:50 Lymph # (Auto) 2.2 10^3/uL (1.5-6.5) 04/26/22 09:50 Hemphill # (Auto) 0.8 10^3/uL (0.2-0.9) 04/26/22 09:50 Eos # (Auto) 0.5 10^3/uL (0.0-0.8) 04/26/22 09:50 Baso # (Auto) 0.1 10^3/uL (0.0-0.1) 04/26/22 09:50 Nucleated RBC % (auto) 0 % 04/26/22 09:50 Nucleated RBCs # 0.0 /100WBC 04/26/22 09:50 Sodium 136 mmol/L (136-145) 04/26/22 09:50 Potassium 4.0 mmol/L (3.5-5.1) 04/26/22 09:50 Chloride 105 mmol/L (98-107) 04/26/22 09:50 Carbon Dioxide 20 mmol/L (22-29) L 04/26/22 09:50 Anion Gap 15.0 (5-19) 04/26/22 09:50 BUN 5 mg/dL (6-20) L 04/26/22 09:50 Creatinine 0.4 mg/dL (0.5-0.9) L 04/26/22 09:50 GFR Calculation 205.6 mL/min (90-130) H 04/26/22 09:50 Glucose 109 mg/dL (65-115) 04/26/22 09:50 Calculated Osmolality 280 mOsm/kg (285-295) L 04/26/22 09:50 Calcium 9.1 mg/dL (8.5-10.5) 04/26/22 09:50 Insulin-like GF I Negative 04/26/22 13:54 Vitals Last Vital Signs Temp 97.9 F 04/27/22 11:53 Pulse 72 04/28/22 04:15 Resp 16 04/28/22 04:15 BP 109/63 04/28/22 04:15 Pulse Ox 97 04/28/22 04:15 O2 Del Method 04/28/22 04:15 Discharge Plan Discharge Patient Disposition: Home Condition: Good Prescriptions: New oxycodone-acetaminophen 5-325 mg Tablet 1 tab PO Q6H PRN (Reason: Moderate To Severe Pain) Qty: 15 0RF ferrous sulfate 325 mg (65 mg iron) Tablet,Delayed Release (Dr/Ec) 325 mg PO BIDWM Qty: 60 0RF ibuprofen 800 mg Tablet 800 mg PO TID Qty: 60 0RF Continued [id number] ac-dha 30 mg iron- 1.4 mg-300 mg Combo Pack 1 pkg PO DAILY Qty: 60 0RF Discontinued metformin 500 mg Tablet 500 mg PO DAILY omeprazole 20 mg Capsule,Delayed Release(Dr/Ec) 20 mg PO BID Discharge Orders: Discharge Order (Routine); Ordered 04/28/22 Ordered By: Manuel Patino Referrals: Manuel Patino MD [Physician] - 7-10 days Yue Bruno DO [Primary Care Provider] - 6 Weeks Discharge Diet: Regular Discharge Activity: Limit activity as instructed Patient Instructions: Opioid Safety Activity Restrictions/Additional Instructions: Do not lift anything heavier than your infant in the car seat for the first 3 weeks, then gradually increase. Back to normal lifting by 6 weeks . If you have any concern for infection in your incision site, please seek immediate medical attention. Nothing per vagina for 6 weeks. Showers are okay, however I would recommend against baths or swimming for the next 6 weeks. Discharge Attestations Time Spent in Discharge Care*: greater than 30 min Quality Metrics Clinical Quality Measures [ No reported AMI, CVA or VTE this stay] Coding Level of Care Code Acute Chg FW DC note Diagnoses Status post section Z98.891
[2022-04-28] MEDS: ferrous sulfate EC 325 mg Tablet PO (08:51)
[2022-04-28] MEDS: ibuprofen 800 mg tablet PO (08:51)
[2022-04-28] MEDS: prenatal vitamin Capsule 1 CAP PO (08:51)
[2022-04-28] MEDS: docusate sodium 100 mg Capsule PO (08:51)
[2022-04-28 13:15] VITALS: BP 111/71; PULSE 92; RESP 14; TEMP 36.5; O2SAT 98
== END 2022-04-28 14:10 | disposition home or self-care (01) | DRG 788 ==
LOC: OPOB 10:18 → OBGYN 10:19
PROVIDERS: Family Medicine; Absent Provider Family Medicine; Admitting Provider Family Medicine; Family Provider Family Medicine; PCP Family Medicine; Visit Provider Family Medicine
PROC: 10D00Z1 Extraction of Products of Conception, Low, Open Approach (ICD-10-PCS; CPT 59514; principal; 2022-04-26 18:00)
DX: O41.03X0 Oligohydramnios, third trimester, not applicable or unspecified (principal); O36.5930 Maternal care for other known or suspected poor fetal growth, third trimester, not applicable or unspecified; O32.1XX0 Maternal care for breech presentation, not applicable or unspecified; Z3A.37 37 weeks gestation of pregnancy; Z37.0 Single live birth; O99.02 Anemia complicating childbirth; D64.9 Anemia, unspecified; O24.425 Gestational diabetes mellitus in childbirth, controlled by oral hypoglycemic drugs; O99.62 Diseases of the digestive system complicating childbirth; K21.9 Gastro-esophageal reflux disease without esophagitis
CPT/HCPCS: 36415; 51702; 59025; 59409; 80048; 84112; 85025; 85027; J1200; J1885; J2274; J2405; J2765; J3490; J7030

== ENCOUNTER → 2022-06-14 11:09 | Outpatient (BNVA) | payer MEDICAID, SELFPAY | PROVIDERS: Family Provider Family Medicine; PCP Family Medicine; Visit Provider Student in an Organized Health Care Education/Training Program | DX: M67.431 Ganglion, right wrist (principal) | CPT/HCPCS: 73110 ==

== ENCOUNTER 2022-06-29 07:18 | Day surgery (SDC) | payer MEDICAID, SELFPAY ==
[2022-06-28 13:36] VITALS: BMI 28.5
[2022-06-29 07:43] VITALS: BP 127/68; PULSE 127; RESP 112; TEMP 36.6; O2SAT 98
--- NOTE | 2022-06-29 07:49 | W.PM.OPSUD ---
Surgery/Procedure H&P Update DATE OF PROCEDURE: June 29, 2022 DATE H&P PERFORMED: 06/14/22 CHANGES TO PREVIOUS DOCUMENTATION: None. Patient states she had a bout of some nausea vomiting overnight denies any food poisoning. States she was nervous prior to surgery. At this point time in the morning she does not appear to be acutely ill states she is ready to proceed with surgical intervention as this is continue to bother her significantly has become more painful. PREOP DIAGNOSIS: Right dorsal wrist ganglion cyst PRIMARY INDICATION FOR PROCEDURE: right dorsal wrist ganglion cyst PLANNED PROCEDURE: Operation Date: 06/29/22 09:45 Proposed Procedures p excision of ganglion cyst of right wrist: [id number],M67.431(Right) - Amish Galo DO
[2022-06-29 07:50] LABS: OR HCG Qualitative Urine Negative (Negative)
[2022-06-29] MEDS: scopolamine 1.5 Patch 1 PATCH TRANSDERMA (07:57)
[2022-06-29] MEDS: acetaminophen 1,000 MG/100 ML PIGGYBACK 400 MG IV (07:57)
[2022-06-29] MEDS: ketorolac 30 mg/mL INJ IVP (07:57)
[2022-06-29] MEDS: sodium chloride 0.9% 1,000 ML 30 ML IV (07:57)
--- NOTE | 2022-06-29 08:04 | ANES.PREANE2 ---
Pre-Anesthetic Assessment Height/Weight: Height 1.68 m Weight 80.286 kg Temp Pulse Resp BP Pulse Ox O2 Del Method 97.9 F 127 H 112 H 127/68 98 06/29/22 07:43 06/29/22 07:43 06/29/22 07:43 06/29/22 07:43 06/29/22 07:43 06/29/22 07:44 Preop Diagnosis: Right dorsal wrist ganglion cyst Operation Date: 06/29/22 09:45 Proposed Procedures p excision of ganglion cyst of right wrist: [id number],M67.431(Right) - Amish Galo DO Familial anesthetic complications: none Was Beta Johnathon taken within 24 hours: N/A Was Clonidine taken within 24 hours: N/A Last intake: Intake Last Liquid Date 06/28/22 Last Liquid Time 23:00 Last Solid Date 06/28/22 Last Solid Time 20:00 Social No alcohol and No tobacco Exam alert, oriented x 3 and clear to auscultation bilaterally Airway Submandibular: within normal limits Cervical ROM: within normal limits Mallampati: Class II Dentition: chipped GI Gastroesophageal Reflux Disease N/V since (2months ago) Neuropsych Anxiety and Depression Anesthetic Plan ASA status: 2 Anesthesia: Choice Medications/Allergies Home Medications Medication Instructions Recorded Confirmed Last Taken Type hydrocodone 5 mg-acetaminophen 325 1 tab PO Q6H PRN pain 7 days #28 06/29/22 Unknown Rx mg tablet tabs Allergies Allergy/AdvReac Type Severity Reaction Status Date / Time promethazine AdvReac Intermediate ADR-Vomitin Verified 06/28/22 13:33 g Current Medications Generic Name Dose Route Start Last Admin Trade Name Freq PRN Reason Stop Dose Admin Sodium Chloride 1,000 mls @ 30 mls/hr 06/29/22 07:45 06/29/22 07:57 Sodium Chloride 0.9% IV 06/30/22 07:44 30 mls/hr .Q24H LY Administration PFSH Anesthesia Medical History (Updated 06/29/22 @ 08:02 by Amish Galo DO) Ganglion cyst of dorsum of right wrist Gestational diabetes No pertinent past medical history Neghx: Htn, DM, Thyroid, DVT/PE PCP: none Vaginal bleeding in Surgical History H/O oral surgery wisdom teeth extraction Status post section Family History Grandmother Breast cancer Paternal grandmother Unknown Family history of thyroid problem Paternal side Denies family history of Colon cancer Ovarian cancer Diabetes Heart disease Hyperlipidemia Hypertension Uterine cancer Stroke Social History Smoking and tobacco status: never smoked Alcohol intake: never Current occupation: Works at [employer] History Date of last menstrual period: 01/27/20 Data Anesthesia Cardiac Studies: No Data to Display
[2022-06-29] MEDS: ceFAZolin 2,000 MG in sodium chloride 0.9% (plus) 50 ML 100 MG IV (08:05)
[2022-06-29] MEDS: sodium bicarbonate 1 mEq/mL SDV 50mL 50 MEQ XX (08:43)
[2022-06-29 09:05] VITALS: BP 124/54; PULSE 104; RESP 16; TEMP 36.2; O2SAT 98
--- NOTE | 2022-06-29 09:08 | P.OP_ITS ---
Brief Operative Note Date of procedure: 06/29/22 Pre-op diagnosis: Right dorsal wrist ganglion cyst Post-op diagnosis: same Procedure Done: Right dorsal wrist ganglion cyst excision Surgeon: Amish Galo Estimated blood loss (mL): 2 Complications: None Post-op Plan: Patient taken to PACU in stable condition volar splint on in place. We will have patient follow-up with us in office in 2 weeks. Given appropriate discharge instructions as well as pain medication. We will see patient back in 2 weeks for follow-up visit. Patient understands she has any questions or concerns she can contact the office. Condition: stable Disposition: same day Coding Level of Care Code Acute Osteopathic Neurologist for Ivett Fernandes
--- NOTE | 2022-06-29 09:09 | PM.PACU ---
PACU note Narrative: Splint on in place. Dressing clean dry and intact. Patient is able to wiggle fingers. Sensation tact light touch distally. Brisk capillary refill less than 2 seconds fingertips warm well perfused. Patient's pain is controlled. Exam: awake (See narrative for detailed exam) Disposition: discharged
[2022-06-29 09:10] VITALS: BP 131/69; PULSE 108; RESP 16; O2SAT 98
--- NOTE | 2022-06-29 09:10 | P.OP_ITS ---
Operative Report Date of procedure: June 29, 2022 Pre-op diagnosis: Preop Diagnosis Right dorsal wrist ganglion cyst Post-op diagnosis: Same Procedure done: Right dorsal wrist ganglion cyst excision Specimens removed/disposition: Right dorsal wrist ganglion cyst removed and sent for pathology Pathology: Right dorsal wrist ganglion cyst removed and sent for pathology Surgeon: Amish Galo DO Estimated blood loss: 2 mL 12 minutes IV fluids: See anesthesia record Complications: None Condition: stable Disposition: same day Brief History: Patient is a 21-year-old female who has been worked up in the outpatient setting for a painful right dorsal wrist ganglion cyst. She is tried conservative treatment for several months with no relief. She presented to my office for evaluation and treatment recommendations. She has no evidence of instability this is consistent with a right dorsal ganglion cyst on examination with a palpable mobile dorsal soft soft tissue mass. At this point time we talked about her treatment options as far as nonoperative and operative intervention. Through shared decision making she would like to proceed with surgical intervention to lower risk of recurrence and get this taken care of as soon as possible as she does have a at home. She understands her risks or benefits or complications and alternatives to surgical treatment options she agrees to proceed with surgery. Consent was obtained in the office. All questions answered. Procedure: Patient seen evaluate in preoperative holding area. Consent was reviewed and signed with patient. Correct extremity then marked. Patient was seen evaluated by the anesthesia department. Once cleared for surgery taken back to the operative suite. Patient was then transported onto the OR table all bony prominences well-padded patient was placed in supine position the right arm was placed on an armboard. Nonsterile tourniquet applied to the right upper extremity. Patient underwent anesthesia per the anesthesia department. The right upper extremity was then sterilely prepped and draped in standard orthopedic fashion. Final timeout performed. Patient received appropriate preoperative antibiotics Local anesthetic was then injected with lidocaine epinephrine and bicarb over the planned dorsal incisional site center directly over the dorsal ganglion cyst. Once appropriately localized and sedated we then proceed with surgical intervention a standard longitudinal incision was made directly over the ganglion cyst. Sharp scalpel excision through skin and subcutaneous tissue. I then utilized Littler dissection scissors to identify and protect the dorsal cutaneous branch of the superficial radial nerve. This was protected I came directly down over the extensor tendons just distal to the extensor tendon retinaculum. Wrist was taken through range of motion and identify the dorsal ganglion cyst just underneath the EDC tendons. This point time the tendons were then mobilized and protected throughout the case. I identified the ganglion cyst and utilizing sharp scalpel excision Littler dissection scissors as well as bipolar electrocautery ellipsed the entire ganglion cyst out. This was then sent for pathology. This was poked and there was gelatinous ganglion cyst consistent type fluid. At this point time this was communicated to the dorsal wrist capsule. I then utilize electrocautery to burn the area that the stalk was excised of the ganglion cyst to prevent any risk of recurrence. Wrist was taken for range of motion no residual cyst was noted as well as no evidence of wrist instability and a negative Osuna's. At this point time wound bed was thoroughly irrigated tourniquet deflated hemostasis satisfactory with pressure and bipolar electrocautery. Incision was then closed in layered fashion with 3- 0 interrupted Vicryl suture in a running horizontal mattress nylon suture. Patient was then dressed with Xeroform 4 x 4's ABD Curlex soft roll and a volar splint with an Shahbaz wrap. She was awakened from anesthesia taken to PACU in stable condition. Disposition: Patient will be nonweightbearing to the right hand keep splint on in place until follow-up. Patient given appropriate discharge instructions as well as pain medication and antinausea medication as needed postoperatively. Follow-up with me in office in 2 weeks. Patient understands agrees with current plan. All questions answered. She understands she has any questions or concerns she can contact the office.
[2022-06-29 09:13] VITALS: BP 124/70; PULSE 112; RESP 16; TEMP 36.4; O2SAT 98
[2022-06-29 09:19] VITALS: BP 119/71; PULSE 92; RESP 16; TEMP 36.7; O2SAT 99
[2022-06-29 09:35] VITALS: BP 118/72; PULSE 96; RESP 18; TEMP 36.6; O2SAT 99
--- NOTE | 2022-06-29 14:53 | ANE.PACU2 ---
Inpatient post-anesthesia follow up: Airway intact: Yes Vital signs: Temperature 97.9 F Pulse Rate 96 Respiratory Rate 18 Blood Pressure 118/72 Pulse Oximetry 99 Oxygen Delivery Me thod Room Air Oxygen Flow Rate Fraction of Inspir ed Oxygen Hydration adequate: Yes Nausea and vomiting: No Pain level: 2 Mental status: Baseline
== END 2022-06-29 09:51 | disposition home or self-care (01) ==
PROVIDERS: Anesthesiology; PCP Family Medicine; Visit Provider Student in an Organized Health Care Education/Training Program
PROC: (CPT 25111; principal; 2022-06-29 09:45)
DX: M67.431 Ganglion, right wrist (principal)
CPT/HCPCS: 25111; 81025; 84703; 88304; J0131; J0690; J1885; J2250; J2405; J2704; J3010; J7030

== ENCOUNTER 2022-07-02 07:33 | Emergency (ER) | payer MEDICAID, SELFPAY ==
[2022-07-02 07:37] VITALS: BP 124/84; PULSE 90; RESP 14; TEMP 36.5; O2SAT 98; BMI 28.2
--- NOTE | 2022-07-02 08:25 | ED_ITS ---
HPI - Abdominal Pain General: Chief Complaint: Abdominal Pain Stated Complaint: Chest Pain Time Seen by Provider: 07/02/22 08:14 History of Present Illness: chronic reflux, worse this am and has not improved since 3am Associated Symptoms: Denies chills and fever(s) Related Data: Date of Last Menstrual Period: 01/27/20 Review of Systems Const: Denies: fever(s) or chills Card: Denies: chest pain or dyspnea on exertion Resp: Denies: dyspnea or productive cough GI: Reports: abdominal pain (epigastric region ) : Denies: difficulty voiding Musc: Denies: joint pain, joint swelling or limited range of motion Skin/Breast: Denies: changes in skin color or dry skin Psych: Denies: anxiety Vincent/Lymph: Denies: easy bruising or easy bleeding PFSH ED PFSH: Medical History Ganglion cyst of dorsum of right wrist Gestational diabetes No pertinent past medical history Neghx: Htn, DM, Thyroid, DVT/PE PCP: none Vaginal bleeding in Surgical History H/O oral surgery wisdom teeth extraction Status post section Family History Grandmother Breast cancer Paternal grandmother Unknown Family history of thyroid problem Paternal side Denies family history of Colon cancer Ovarian cancer Diabetes Heart disease Hyperlipidemia Hypertension Uterine cancer Stroke Social History Smoking and tobacco status: never smoked Alcohol intake: never Current occupation: Works at [employer] Female Reproductive History: Date of last menstrual period: 01/27/20 Physical Exam Const: COMMON NORMALS: no acute distress, patient oriented x3, no limitations and alert GENERAL APPEARANCE: cooperative and comfortable ORIENTATION/CONSCIOUSNESS: Yes awake, Yes oriented to person, Yes oriented to place and Yes oriented to time HENMT: COMMON NORMALS: normocephalic, atraumatic, external ears normal, EAC's normal, TM's normal bilaterally and Normal external nose present HEAD & SCALP: normal to inspection, normocephalic and atraumatic FACE & SINUS: normal facial exam, sinuses nontender and face symmetric NOSE: Normal external nose present, Normal nares present and No nasal discharge present EXTERNAL EAR: Yes external ears normal EXTERNAL AUDITORY CANAL: EAC's normal TYMPANIC MEMBRANE: TM's normal bilaterally MOUTH: Normal oral and palatal mucosa present, lip normal and tongue normal THROAT: posterior oropharynx normal, tonsils normal and uvula midline Eye: COMMON NORMALS: Equal, round and reactive pupils present, EOMs intact bilaterally and conjunctivae normal GENERAL EYE: appearance normal, both eyes and all related structures and normal light reflex EYELID: eyelids normal CONJUNCTIVA: Yes conjunctivae normal PUPIL: Yes Equal, round and reactive pupils present EOM: Yes EOM abnormal DIRECT OPHTHALMOSCOPY: Yes normal light reflex Neck/C-Spine: COMMON NORMALS: full ROM, no lymphadenopathy, supple, no meningeal signs, no JVD and Thyroid normal GENERAL: Yes normal visual inspection THYROID: Thyroid normal CERVICAL SPINE: Yes cervical ROM normal and Yes normal cervical lordosis Lymph: LYMPHATIC: no lymphadenopathy noted Chest: COMMONS NORMALS: normal inspection of the chest and normal palpation of entire chest wall Resp: COMMON NORMALS: normal respiratory effort, No retractions and clear to auscultation bilaterally AUSCULTATION: clear to auscultation bilaterally Cardio: COMMON NORMALS: no JVD, regular rate, regular rhythm, S1 normal heart sound present, S2 normal heart sound present, No gallops present (Cardio), No clicks present (Cardio), No murmurs present (Cardio), No rub (Cardio) and Peripheral pulses 2+ throughout RATE: regular rate RHYTHM: regular rhythm HEART SOUNDS: S1 normal heart sound present and S2 normal heart sound present PERIPHERAL PULSES: Peripheral pulses 2+ throughout GI: COMMON NORMALS: Normal to inspection, nondistended, normoactive bowel sounds present, Soft to palpation, non-tender and no masses PALPATION: Yes Soft to palpation : COMMON NORMALS: Yes no CVA tenderness and Yes normal external appearance BLADDER/KIDNEY EXAM: Yes no CVA tenderness Back/Pelvis: COMMON NORMALS: no CVA tenderness, thoracic and lumbar spine norm al to inspection, no thoracic nor lumbar tenderness and thoraco-lumbar ROM normal Extremity: COMMON NORMALS: normal to inspection, full ROM, capillary refill normal, no joint enlargement, no clubbing, cyanosis or edema, no calf tenderness and no pedal edema GENERAL: Yes normal exam except as noted Neuro: COMMON NORMALS: patient oriented x3, moves all extremities, no focal motor deficits, no sensory deficits noted and gait normal SENSORIUM/ORIENTA TION: Yes alert, Yes oriented to person, Yes oriented to place and Yes oriented to time MENINGEAL SIGNS: Yes no meningeal signs Psych: COMMON NORMALS: mental status grossly normal, Normal thought process present, cooperative, normal affect, speech normal and activity/motor behavior normal SPEECH: Yes normal speech THOUGHT PROCESS: Normal thought process present Skin: COMMON NORMALS: no rashes or lesions noted, no wounds and turgor normal GENERAL SKIN EXAM: no rashes or lesions noted and turgor normal Course Vital Signs: Vital signs: Vital Signs Temperature 97.7 F 07/02/22 07:37 Pulse Rate 90 07/02/22 07:37 Respiratory Rate 14 07/02/22 07:37 Blood Pressure 124/84 07/02/22 07:37 Pulse Oximetry 98 07/02/22 07:37 Oxygen Delivery Me thod 07/02/22 07:37 MDM - Abdominal Pain Medical Decision Making Pt has dealt with chronic reflux since the age of [age]. This is most noted after being severely ill with pneumonia at the age of [age]. We will refer to GI for possible work up but have directed patient on some natural alternatives. Improvement after protonix orally today. Will DC with script. Lab Data Labs/Radiology: Laboratory Results HCG, Qual Negative (Negative) 07/02/22 08:29 Discharge Plan Discharge Patient Disposition: Home Clinical Impression: Gastroesophageal reflux disease Condition: Stable Prescriptions: New Protonix 40 mg tablet,delayed release (DR/EC) 40 mg PO DAILY Qty: 10 0RF No Action hydrocodone-acetaminophen 5-325 mg tablet 1 tab PO Q6H PRN (Reason: pain) 7 Days Qty: 28 0RF ondansetron 4 mg tablet,disintegrating 4 mg PO DAILY PRN (Reason: nausea and vomiting) 5 Days Qty: 10 0RF ibuprofen 600 mg tablet 600 mg PO Q6H PRN (Reason: pain) 14 Days Qty: 56 0RF Discharge Orders: Discharge ED (Routine); Ordered 07/02/22 Ordered By: Daly Rivera Referrals: Yue Bruno DO [Primary Care Provider] - Discharge Diet: Usual diet Discharge Activity: Increase activity as tolerated Patient Instructions: Opioid Safety, Pain Management Coding Level of Care Code ED Tube And Manifold Builder for Chg Fwd Exam Comprehensive
[2022-07-02] MEDS: pantoprazole DR 40 mg Tablet PO (08:39)
[2022-07-02 09:18] LABS: HCG Qualitative Urine. Negative (Negative)
--- NOTE | 2022-07-04 08:08 | PC.SOCIAL ---
Addendum entered by Kate Marcano 08/10/22 14:05: Patient had follow up appointment scheduled with general surgery - patient did not attend appointment Original Note: Referral sent to general surgery for chronic GERD evaluation. Clinic to contact patient with appointment date/time.
== END 2022-07-02 10:46 | disposition home or self-care (01) ==
PROVIDERS: Emergency Provider Nurse Practitioner Family; PCP Family Medicine
DX: K21.9 Gastro-esophageal reflux disease without esophagitis (principal)
CPT/HCPCS: 81025; 99283

== ENCOUNTER 2022-07-21 06:00 | Outpatient (RCR) | payer MEDICAID, SELFPAY | END 2022-08-16 23:59 | disposition home or self-care (01) | LOC: SOT 06:00 | PROVIDERS: PCP Family Medicine; Visit Provider Student in an Organized Health Care Education/Training Program | DX: M67.431 Ganglion, right wrist (principal) | CPT/HCPCS: 97018; 97110; 97140; 97165 ==

== ENCOUNTER 2022-11-16 07:01 | Emergency (ER) | payer MEDICAID, SELFPAY ==
[2022-11-16 07:07] VITALS: BP 124/66; PULSE 120; TEMP 36.9; O2SAT 96; BMI 28.4
--- NOTE | 2022-11-16 07:14 | W.ED.ABDPA2 ---
HPI - Abdominal Pain General: Chief Complaint: Abdominal Pain Stated Complaint: abd pains Time Seen by Provider: 11/16/22 07:08 History of Present Illness: Patient is a 21-year-old female comes to the ED with acid reflux. Patient is unsure of gestational age of the baby but states that her last menstrual period was back in July 2022. Patient has a history of GERD and has been on pantoprazole in the past but stopped taking it back on October 19 because she did not feel like it was working anymore. Over the past 2 to 3 days she states her heartburn is got worse. Symptoms worsen after she eats or drinks anything. She describes her pain as a burning pain in her stomach that moves up now she states her throat is sore when she swallows. Pain rated a 7 out of 10. She denies any fevers, chills, nausea/vomiting, abdominal pain, vaginal bleeding, dysuria or hematuria. No related complaints. Patient has an appointment with her OB doctor coming up in November. Associated Symptoms: Reports heartburn; Denies chills, constipation, diarrhea, dysuria, fever(s), hematochezia, hematuria, nausea and vomiting Review of Systems Const: Denies: fever(s), chills or fatigue Eyes: Denies: change in vision or eye discomfort ENMT: Denies: throat pain, odynophagia, nasal discharge or nasal congestion Card: Denies: chest pain, palpitations, edema, swelling of feet/ankles, dyspnea on exertion or orthopnea Resp: Denies: dyspnea, productive cough or non-productive cough GI: Reports: heartburn; Denies: abdominal pain, nausea, vomiting, diarrhea, constipation or hematochezia : Denies: flank pain, dysuria or hematuria Musc: Denies: neck pain, back pain or extremity swelling Skin/Breast: Denies: rash or new lesions Neuro: Denies: headache(s), numbness in extremities or weakness in extremities PFSH ED PFSH: Medical History Ganglion cyst of dorsum of right wrist Gestational diabetes No pertinent past medical history Neghx: Htn, DM, Thyroid, DVT/PE PCP: none Vaginal bleeding in Surgical History H/O oral surgery wisdom teeth extraction Status post section Family History Grandmother Breast cancer Paternal grandmother Unknown Family history of thyroid problem Paternal side Denies family history of Colon cancer Ovarian cancer Diabetes Heart disease Hyperlipidemia Hypertension Uterine cancer Stroke Social History Smoking and tobacco status: never smoked Alcohol intake: never Current occupation: Works at [employer] Physical Exam Const: COMMON NORMALS: no acute distress, patient oriented x3, healthy appearing and alert GENERAL APPEARANCE: cooperative and comfortable HENMT: COMMON NORMALS: normocephalic HEAD & SCALP: normocephalic MOUTH: Normal oral and palatal mucosa present THROAT: posterior oropharynx normal and uvula midline Neck/C-Spine: COMMON NORMALS: supple GENERAL: Yes normal visual inspection Resp: COMMON NORMALS: normal respiratory effort, No retractions, No use of accessory muscles and clear to auscultation bilaterally AUSCULTATION: clear to auscultation bilaterally Cardio: COMMON NORMALS: regular rate, regular rhythm, S1 normal heart sound present, S2 normal heart sound present, No gallops present (Cardio), No clicks present (Cardio), No murmurs present (Cardio) and Peripheral pulses 2+ throughout RATE: regular rate RHYTHM: regular rhythm HEART SOUNDS: S1 normal heart sound present and S2 normal heart sound present PERIPHERAL PULSES: Peripheral pulses 2+ throughout GI: COMMON NORMALS: Normal to inspection, nondistended, normoactive bowel sounds present, Soft to palpation, non-tender and no masses PALPATION: Yes Soft to palpation : COMMON NORMALS: Yes no CVA tenderness BLADDER/KIDNEY EXAM: Yes no CVA tenderness Back/Pelvis: COMMON NORMALS: no CVA tenderness Extremity: COMMON NORMALS: normal to inspection Neuro: COMMON NORMALS: patient oriented x3 SENSORIUM/ORIENTATION: Yes alert GAIT: Yes Normal gait present Skin: GENERAL SKIN EXAM: dry skin Course Vital Signs: Vital signs: Vital Signs Temperature 98.5 F 11/16/22 07:07 Pulse Rate 120 H 11/16/22 07:07 Respiratory Rate 14 11/16/22 07:25 Blood Pressure 124/66 11/16/22 07:25 Pulse Oximetry 99 11/16/22 07:25 Oxygen Delivery Me thod 11/16/22 07:25 MDM - Abdominal Pain Medical Decision Making Patient is a 21-year-old female comes to the ED with acid reflux. Patient is unsure of gestational age of the baby but states that her last menstrual period was back in July 2022. Patient has a history of GERD and has been on pantoprazole in the past but stopped taking it back on October 19 because she did not feel like it was working anymore. Over the past 2 to 3 days she states her heartburn is got worse. Symptoms worsen after she eats or drinks anything. She describes her pain as a burning pain in her stomach that moves up now she states her throat is sore when she swallows. Pain rated a 7 out of 10. She denies any fevers, chills, nausea/vomiting, abdominal pain, vaginal bleeding, dysuria or hematuria. No related complaints. Patient has an appointment with her OB doctor coming up in November. Vitals are stable. Exam of patient is benign and she appears nontoxic in no acute distress or pain. She is sitting comfortably on exam bed when in the room. Her labs are all unremarkable. hCG quant of 16,968. Patient was given a dose of Maalox and Pepcid here in the ED. she was diagnosed with and GERD. She was sent home with a prescription for Pepcid and told to follow-up with her OB doctor at her next scheduled appointment. Return to ED precautions given. Patient understood and agreed with plan. Lab Data I reviewed the patient's lab results. 11/16/22 07:54 11/16/22 07:54 Labs/Radiology: Laboratory Results WBC 8.3 10^3/uL (4.5-13.0) 11/16/22 07:54 RBC 4.13 10^6/uL (4.1-5.3) 11/16/22 07:54 Hgb 10.5 g/dL (11.5-15.3) L 11/16/22 07:54 Hct 33.5 % (37.0-47.0) L 11/16/22 07:54 MCV 81.1 fl (81-99) 11/16/22 07:54 MCH 25.4 pg (28.0-34.0) L 11/16/22 07:54 MCHC 31.3 g/dL (30.0-36.0) 11/16/22 07:54 RDW 16.1 % (12.1-15.1) H 11/16/22 07:54 Plt Count 190 10^3/cmm (130-400) 11/16/22 07:54 MPV 12.2 fL (7.4-10.4) H 11/16/22 07:54 Neut % (Auto) 71.6 % 11/16/22 07:54 Lymph % (Auto) 19.8 % 11/16/22 07:54 [place] % (Auto) 7.6 % 11/16/22 07:54 Eos % (Auto) 0.4 % 11/16/22 07:54 Baso % (Auto) 0.2 % 11/16/22 07:54 Neut # (Auto) 5.91 10^3/uL (1.8-8.0) 11/16/22 07:54 Lymph # (Auto) 1.6 10^3/uL (1.5-6.5) 11/16/22 07:54 [place] # (Auto) 0.6 10^3/uL (0.2-0.9) 11/16/22 07:54 Eos # (Auto) 0.0 10^3/uL (0.0-0.8) 11/16/22 07:54 Baso # (Auto) 0.0 10^3/uL (0.0-0.1) 11/16/22 07:54 Nucleated RBC % (auto) 0 % 11/16/22 07:54 Nucleated RBCs # 0.0 /100WBC 11/16/22 07:54 Sodium 133 mmol/L (136-145) L 11/16/22 07:54 Potassium 3.6 mmol/L (3.5-5.1) 11/16/22 07:54 Chloride 101 mmol/L (98-107) 11/16/22 07:54 Carbon Dioxide 20 mmol/L (22-29) L 11/16/22 07:54 Anion Gap 15.6 (5-19) 11/16/22 07:54 BUN 6 mg/dL (6-20) 11/16/22 07:54 Creatinine 0.4 mg/dL (0.5-0.9) L 11/16/22 07:54 GFR Calculation 205.6 mL/min (90-130) H 11/16/22 07:54 Glucose 97 mg/dL (65-115) 11/16/22 07:54 Calculated Osmolality 274 mOsm/kg (285-295) L 11/16/22 07:54 Calcium 8.0 mg/dL (8.5-10.5) L 11/16/22 07:54 Total Bilirubin 0.2 mg/dL (0.15-1.2) 11/16/22 07:54 AST 8 U/L (0-32) 11/16/22 07:54 ALT 8 U/L (0-33) 11/16/22 07:54 Alkaline Phosphatase 68 U/L (35-105) 11/16/22 07:54 Total Protein 6.3 g/dL (6.6-8.7) L 11/16/22 07:54 Albumin 3.8 g/dL (3.5-5.2) 11/16/22 07:54 Globulin 2.5 g/dL (1.3-4.6) 11/16/22 07:54 Lipase 30 U/L (13-60) 11/16/22 07:54 Ser , Semi-Qnt 50464.00 mIU/mL 11/16/22 07:54 Urine Color Yellow (Yellow) 11/16/22 07:32 Urine Appearance Sl cloudy (CLEAR) A 11/16/22 07:32 Urine pH 6 (5-7) 11/16/22 07:32 Ur Specific Loving 1.020 (1.005-1.030) 11/16/22 07:32 Urine Protein Neg (Negative) 11/16/22 07:32 Urine Glucose (UA) Norm (Normal) 11/16/22 07:32 Urine Ketones Negative (Negative) 11/16/22 07:32 Urine Blood Neg (Negative) 11/16/22 07:32 Urine Nitrate Negative (Negative) 11/16/22 07:32 Urine Bilirubin Neg (Negative) 11/16/22 07:32 Urine Urobilinogen Norm mg/dL (Negative) 11/16/22 07:32 Ur Leukocyte Esterase Negative (Negative) 11/16/22 07:32 Urine RBC None /hpf (0-2) 11/16/22 07:32 Urine WBC Rare /hpf (0-5) 11/16/22 07:32 Ur Squamous Epith Cells 10-15 /hpf (0-5) H 11/16/22 07:32 Amorphous Sediment Not Reportable 11/16/22 07:32 Urine Bacteria 1+ /hpf (NONE) H 11/16/22 07:32 Discharge Plan Discharge Patient Disposition: Home Clinical Impression: Gastroesophageal reflux disease, Currently Condition: Stable Prescriptions: New Pepcid 20 mg tablet 20 mg PO BID 42 Days Qty: 84 0RF No Action Protonix 40 mg tablet,delayed release (DR/EC) 40 mg PO DAILY Qty: 10 0RF Discharge Orders: Discharge ED (Routine); Ordered 11/16/22 Ordered By: Manuel Galo Referrals: Yue Bruno, [Primary Care Provider] - Discharge Diet: Advance as tolerated and Clear Liquid Discharge Activity: Resume usual activity Patient Instructions: GERD (Gastroesophageal Reflux Disease) (DC) Activity Restrictions/Additional Instructions: Follow-up with medical provider at your next scheduled appointment in November. Take medications as prescribed. Return to the ER or your medical provider if condition worsens. Please read and understand discharge instructions. Thank you for choosing [facility] for your healthcare needs today. Please realize this is an emergency room and that we are providing you with a medical screening exam and this may not be complete and all inclusive of all the testing and or work up that you may need to determine your ailment or severity of your illness. It is very important that you follow up as instructed or that you return to the Emergency Department should you have concerns or if your condition changes or worsens in any way. Coding Level of Care Code ED Religion Teacher for Ivett Fernandes
[2022-11-16 07:25] VITALS: BP 124/66; RESP 14; O2SAT 99
[2022-11-16] MEDS: alum-mag-hydroxide-sime 30 mL UDC PO (08:03)
[2022-11-16] MEDS: famotidine 20 mg/2 mL INJ 40 MG IVP (08:10)
[2022-11-16 08:16] LABS: Basophils % 0.2 %; Eosinophils % 0.4 %; Hematocrit 33.5 % (37.0-47.0); Hemoglobin 10.5 g/dL (11.5-15.3); Lymphocytes # 1.6 10^3/uL (1.5-6.5); Lymphocytes % 19.8 %; Mean Corpuscular HGB Conc 31.3 g/dL (30.0-36.0); Mean Corpuscular Hemoglobin 25.4 pg (28.0-34.0); Mean Corpuscular Volume 81.1 fl (81-99); Mean Platelet Volume 12.2 fL (7.4-10.4); Monocytes # 0.6 10^3/uL (0.2-0.9); Monocytes % 7.6 %; Neutrophils # 5.91 10^3/uL (1.8-8.0); Neutrophils % 71.6 %; Nucleated Red Blood Cells % 0 %; Platelet Count 190 10^3/cmm (130-400); Red Blood Count 4.13 10^6/uL (4.1-5.3); Red Cell Distribution Width 16.1 % (12.1-15.1); White Blood Count 8.3 10^3/uL (4.5-13.0)
[2022-11-16 08:16] LABS: Add Urine Microscopic? YES; Bilirubin Urine Neg (Negative); Blood Urine Neg (Negative); Glucose Urine UA Norm (Normal); Ketones Urine Negative (Negative); Leukocyte Esterase Urine Negative (Negative); Nitrate Urine Negative (Negative); Protein Urine Neg (Negative); Urine Color Yellow (Yellow); Urobilinogen Urine Norm (Negative); WBC Urine RARE /hpf (0-5); pH Urine 6 (5-7)
[2022-11-16 08:17] LABS: Bacteria Urine 1+ /hpf
[2022-11-16 09:15] LABS: Alanine Aminotransferase 8 U/L (0-33); Albumin Level 3.8 g/dL (3.5-5.2); Alkaline Phosphatase 68 U/L (35-105); Anion Gap 15.6 (5-19); Aspartate Amino Transferase 8 U/L (0-32); Blood Urea Nitrogen 6 mg/dL (6-20); Carbon Dioxide 20 mmol/L (22-29); Chloride 101 mmol/L (98-107); Globulin 2.5 g/dL (1.3-4.6); Glomerular Filtration Rate 205.6 mL/min (90-130); Glucose 97 mg/dL (65-115); Lipase 30 U/L (13-60); Osmolality Calculated 274 mOsm/kg (285-295); Potassium 3.6 mmol/L (3.5-5.1); Sodium 133 mmol/L (136-145); Total Bilirubin 0.2 mg/dL (0.15-1.2); Total Protein 6.3 g/dL (6.6-8.7)
== END 2022-11-16 09:46 | disposition home or self-care (01) ==
PROVIDERS: Emergency Provider Physician Assistant; PCP Family Medicine
DX: O26.899 Other specified pregnancy related conditions, unspecified trimester (principal); Z3A.00 Weeks of gestation of pregnancy not specified; K21.9 Gastro-esophageal reflux disease without esophagitis
CPT/HCPCS: 36415; 80053; 81001; 83690; 84702; 85025; 96374; 99284; J3490

== ENCOUNTER → 2022-11-28 14:07 | Outpatient (BNVA) | payer MEDICAID, SELFPAY | PROVIDERS: PCP Family Medicine; Visit Provider Family Medicine | DX: O09.299 Supervision of pregnancy with other poor reproductive or obstetric history, unspecified trimester; O26.90 Pregnancy related conditions, unspecified, unspecified trimester; R30.0 Dysuria; Z3A.00 Weeks of gestation of pregnancy not specified | CPT/HCPCS: 80307; 81000; 81025; 84443; 85025; 86592; 86762; 86803; 86850; 86900; 87086; 87340; 87491; 87591; 87624; 87806 ==

== ENCOUNTER 2022-12-02 18:56 | Emergency (ER) | payer MEDICAID, SELFPAY ==
[2022-12-02 19:01] VITALS: BP 126/84; PULSE 104; RESP 16; TEMP 36.3; O2SAT 98; BMI 29.0
--- NOTE | 2022-12-02 19:15 | USR_ITS ---
PROCEDURE INFORMATION: Exam: US Abdomen, Limited; Right Upper Quadrant Exam date and time: 12/02/2022 7:42 PM Age: 22 years old Clinical indication: Abdominal pain; Epigastric; ; Additional info: Ruq epigastric pain TECHNIQUE: Imaging protocol: Real time ultrasound of the abdomen with image documentation. Limited exam focused on the right upper quadrant. COMPARISON: [place] appendix [id number] 11/22/2021 12:03 AM FINDINGS: Liver: Liver enlarged to 19 cm with hepatic steatosis. Gallbladder: Biliary sludge and cholelithiasis, negative for cholecystitis. Biliary ducts: Normal. No stones. No dilation. Pancreas: Visualized pancreas is unremarkable. Right kidney: Normal. No mass. No hydronephrosis. US/US gall bladder [id number] IMPRESSION: 1. Biliary sludge and cholelithiasis, negative for cholecystitis. 2. Liver enlarged to 19 cm with hepatic steatosis.
[2022-12-02] MEDS: sodium chloride 0.9% 1,000 ML 999 ML IV (19:28)
[2022-12-02] MEDS: morphine 4 mg/mL SDV 1 mL IVP (19:33)
[2022-12-02] MEDS: ondansetron 2 mg/ML SDV 2 mL 4 MG IVP (19:33)
[2022-12-02 20:04] VITALS: BP 115/65; PULSE 98; RESP 16; O2SAT 99
[2022-12-02 20:04] LABS: Basophils % 0.4 %; Eosinophils # 0.1 10^3/uL (0.0-0.8); Eosinophils % 1.4 %; Hematocrit 35.5 % (37.0-47.0); Hemoglobin 10.8 g/dL (11.5-15.3); Lymphocytes # 2.1 10^3/uL (1.5-6.5); Lymphocytes % 20.4 %; Mean Corpuscular HGB Conc 30.4 g/dL (30.0-36.0); Mean Corpuscular Hemoglobin 24.5 pg (28.0-34.0); Mean Corpuscular Volume 80.7 fl (81-99); Mean Platelet Volume 12.1 fL (7.4-10.4); Monocytes # 0.6 10^3/uL (0.2-0.9); Monocytes % 6.1 %; Neutrophils # 7.31 10^3/uL (1.8-8.0); Neutrophils % 71.2 %; Nucleated Red Blood Cells % 0 %; Platelet Count 250 10^3/cmm (130-400); Red Cell Distribution Width 15.1 % (12.1-15.1); White Blood Count 10.3 10^3/uL (4.5-13.0)
[2022-12-02 20:37] LABS: Alanine Aminotransferase 9 U/L (0-33); Albumin Level 3.9 g/dL (3.5-5.2); Alkaline Phosphatase 74 U/L (35-105); Anion Gap 15.7 (5-19); Aspartate Amino Transferase 8 U/L (0-32); Blood Urea Nitrogen 6 mg/dL (6-20); Chloride 105 mmol/L (98-107); Globulin 2.8 g/dL (1.3-4.6); Glucose 103 mg/dL (65-115); Lipase 32 U/L (13-60); Potassium 3.7 mmol/L (3.5-5.1); Total Bilirubin 0.2 mg/dL (0.15-1.2); Total Protein 6.7 g/dL (6.6-8.7)
[2022-12-02 20:43] LABS: Calcium 8.4 mg/dL (8.5-10.5); Carbon Dioxide 18 mmol/L (22-29); Glomerular Filtration Rate 203.5 mL/min (90-130); Osmolality Calculated 278 mOsm/kg (285-295); Sodium 135 mmol/L (136-145)
[2022-12-02 20:48] LABS: Add Urine Microscopic? YES; Bilirubin Urine Neg (Negative); Blood Urine Neg (Negative); Glucose Urine UA Norm (Normal); Ketones Urine Negative (Negative); Leukocyte Esterase Urine Trace (Negative); Nitrate Urine Negative (Negative); Protein Urine Neg (Negative); Urine Appearance Hazy (CLEAR); Urine Color Yellow (Yellow); Urobilinogen Urine Norm (Negative); pH Urine 6.5 (5-7)
[2022-12-02 20:50] LABS: WBC Urine 0-4 /hpf (0-5)
[2022-12-02 20:51] LABS: Bacteria Urine 2+ /hpf; RBC Urine 0-4 /hpf (0-2); Squamous Epithelial Cell Urine 55-80 /hpf (0-5)
[2022-12-02 21:27] VITALS: BP 115/56; PULSE 84; RESP 16; O2SAT 100
--- NOTE | 2022-12-03 03:23 | W.ED.CHESTPA ---
HPI - Chest Pain General: Chief Complaint: Chest Pain Stated Complaint: pain under rib cage, heart burn Time Seen by Provider: 12/02/22 19:07 Source: patient History of Present Illness: 22-year-old female who is 17 weeks . She presents with right upper quadrant and epigastric pain. She has had this pain for a few days. It seems to be on and off. She has vomited a couple of times. No fever. No radiation of pain. No diarrhea. No history of vaginal bleeding. MD complaint: other Pertinent past history: other Onset (ago): day(s) Timing of current episode: episodic Prior episodes: No Onset: during rest Pain location: epigastric and other (Right upper quadrant) Pain radiation: none Quality: aching and burning Relieving factors: nothing Exacerbating factors: nothing Associated symptoms: Reports abdominal pain, nausea and vomiting; Deny diaphoresis, dyspnea, fever(s) or syncope Treatment prior to arrival: other Review of Systems Const: Denies: fever(s) or diaphoresis ENMT: Denies: throat pain Card: Denies: chest pain, irregular heart rhythm or syncope Resp: Denies: dyspnea GI: Reports: abdominal pain, nausea and vomiting; Denies: hematochezia or melena : Denies: flank pain Musc: Denies: back pain PFSH ED PFSH: Medical History Ganglion cyst of dorsum of right wrist Gestational diabetes Hx of pre-eclampsia in prior , currently No pertinent past medical history Neghx: Htn, DM, Thyroid, DVT/PE PCP: none Vaginal bleeding in Surgical History H/O oral surgery wisdom teeth extraction Status post section Family History Grandmother Breast cancer Paternal grandmother Unknown Family history of thyroid problem Paternal side Denies family history of Colon cancer Ovarian cancer Diabetes Heart disease Hyperlipidemia Hypertension Uterine cancer Stroke Social History Smoking and tobacco status: never smoked Alcohol intake: never Current occupation: Works at [employer] Physical Exam Const: COMMON NORMALS: no acute distress GENERAL APPEARANCE: cooperative; not ill appearing and not frail appearing HENMT: COMMON NORMALS: normocephalic, atraumatic and Normal external nose present HEAD & SCALP: normocephalic and atraumatic FACE & SINUS: normal facial exam and face symmetric NOSE: Normal external nose present Eye: COMMON NORMALS: Equal, round and reactive pupils present and EOMs intact bilaterally PUPIL: Yes Equal, round and reactive pupils present Neck/C-Spine: GENERAL: Yes trachea midline Chest: CHEST: Yes Symmetrical chest wall rise Resp: COMMON NORMALS: normal respiratory effort, No retractions, No use of accessory muscles and clear to auscultation bilaterally AUSCULTATION: clear to auscultation bilaterally Cardio: COMMON NORMALS: regular rate and regular rhythm RATE: regular rate RHYTHM: regular rhythm GI: COMMON NORMALS: Normal to inspection, nondistended, normoactive bowel sounds present PALPATION: Yes Tenderness to palpation present (GI) (Epigastric) Details: RUQ and No Guarding due to palpation present (GI) Extremity: COMMON NORMALS: no pedal edema Neuro: [place] COMA SCALE: document GCS findings [place] coma scale eye opening: Spontaneous [place] coma scale verbal response: Orientated [place] coma scale motor response: Obey commands [place] coma scale total score: 15 SENSORY EXAM: Yes extremities (intact) Psych: COMMON NORMALS: speech normal SPEECH: Yes normal speech Skin: COMMON NORMALS: no rashes or lesions noted GENERAL SKIN EXAM: no rashes or lesions noted Course Vital Signs: Vital signs: Vital Signs Temperature 97.4 F L 12/02/22 19:01 Pulse Rate 84 12/02/22 21:27 Respiratory Rate 16 12/02/22 21:27 Blood Pressure 115/56 12/02/22 21:27 Pulse Oximetry 100 12/02/22 21:27 Oxygen Delivery Me thod Room Air 12/02/22 20:04 MDM - Chest Pain Medical Decision Making Hemoglobin is 11. White blood cell count is 10. Bicarbonate is 18. She is given IV fluid bolus. She is given morphine and Zofran with some improvement. Gallbladder ultrasound shows biliary sludge and cholelithiasis but no evidence of cholecystitis. Bile ducts are normal. She has a fatty liver on ultrasound as well. Gastritis versus biliary colic is a diagnosis. She was counseled on both. She will continue her Pepcid. We will add Carafate, as it is not absorbed as well as Reglan. Close outpatient follow-up. To return for any new symptoms such as fever, or worsening pain. Lab Data 12/02/22 19:30 12/02/22 19: Radiology Impressions Gallbladder Ultrasound 12/02/22: IMPRESSION: 1. Biliary sludge and cholelithiasis, negative for cholecystitis. 2. Liver enlarged to 19 cm with hepatic steatosis. Laboratory Results WBC 10.3 10^3/uL (4.5-13.0) 12/02/22: RBC 4.40 10^6/uL (4.1-5.3) 12/02/22: Hgb 10.8 g/dL (11.5-15.3) L 12/02/22: Hct 35.5 % (37.0-47.0) L 12/02/22: MCV 80.7 fl (81-99) L 12/02/22: MCH 24.5 pg (28.0-34.0) L 12/02/22: MCHC 30.4 g/dL (30.0-36.0) 12/02/22: RDW 15.1 % (12.1-15.1) 12/02/22: Plt Count 250 10^3/cmm (130-400) 12/02/22: MPV 12.1 fL (7.4-10.4) H 12/02/22: Neut % (Auto) 71.2 % 12/02/22: Lymph % (Auto) 20.4 % 12/02/22: [place] % (Auto) 6.1 % 12/02/22: Eos % (Auto) 1.4 % 12/02/22: Baso % (Auto) 0.4 % 12/02/22: Neut # (Auto) 7.31 10^3/uL (1.8-8.0) 12/02/22: Lymph # (Auto) 2.1 10^3/uL (1.5-6.5) 12/02/22: [place] # (Auto) 0.6 10^3/uL (0.2-0.9) 12/02/22: Eos # (Auto) 0.1 10^3/uL (0.0-0.8) 12/02/22 19:30 Baso # (Auto) 0.0 10^3/uL (0.0-0.1) 12/02/22 19:30 Nucleated RBC % (auto) 0 % 12/02/22 19:30 Nucleated RBCs # 0.0 /100WBC 12/02/22 19:30 Sodium 135 mmol/L (136-145) L 12/02/22 19:30 Potassium 3.7 mmol/L (3.5-5.1) 12/02/22 19:30 Chloride 105 mmol/L (98-107) 12/02/22 19:30 Carbon Dioxide 18 mmol/L (22-29) L 12/02/22 19:30 Anion Gap 15.7 (5-19) 12/02/22 19:30 BUN 6 mg/dL (6-20) 12/02/22 19:30 Creatinine 0.4 mg/dL (0.5-0.9) L 12/02/22 19:30 GFR Calculation 203.5 mL/min (90-130) H 12/02/22 19:30 Glucose 103 mg/dL (65-115) 12/02/22 19:30 Calculated Osmolality 278 mOsm/kg (285-295) L 12/02/22 19:30 Calcium 8.4 mg/dL (8.5-10.5) L 12/02/22 19:30 Total Bilirubin 0.2 mg/dL (0.15-1.2) 12/02/22 19:30 AST 8 U/L (0-32) 12/02/22: ALT 9 U/L (0-33) 12/02/22 19:30 Alkaline Phosphatase 74 U/L (35-105) 12/02/22 19:30 C-Reactive Protein 3.0 mg/L (0.0-4.9) 12/02/22 19:30 Total Protein 6.7 g/dL (6.6-8.7) 12/02/22 19:30 Albumin 3.9 g/dL (3.5-5.2) 12/02/22 19:30 Globulin 2.8 g/dL (1.3-4.6) 12/02/22 19:30 Lipase 32 U/L (13-60) 12/02/22 19:30 Ser , Semi-Qnt 17803.00 mIU/mL 12/02/22 19:30 Urine Color Yellow (Yellow) 12/02/22 20:14 Urine Appearance Hazy (CLEAR) A 12/02/22 20:14 Urine pH 6.5 (5-7) 12/02/22 20:14 Ur Specific [place] 1.020 (1.005-1.030) 12/02/22 20:14 Urine Protein Neg (Negative) 12/02/22 20:14 Urine Glucose (UA) Norm (Normal) 12/02/22 20:14 Urine Ketones Negative (Negative) 12/02/22 20:14 Urine Blood Neg (Negative) 12/02/22 20:14 Urine Nitrate Negative (Negative) 12/02/22 20:14 Urine Bilirubin Neg (Negative) 12/02/22 20:14 Urine Urobilinogen Norm mg/dL (Negative) 12/02/22 20:14 Ur Leukocyte Esterase Trace (Negative) H 12/02/22 20:14 Urine RBC 0-4 /hpf (0-2) H 12/02/22 20:14 Urine WBC 0-4 /hpf (0-5) H 12/02/22 20:14 Ur Squamous Epith Cells 55-80 /hpf (0-5) H 12/02/22 20:14 Amorphous Sediment Not Reportable 12/02/22 20:14 Urine Bacteria 2+ /hpf (NONE) H 12/02/22 20:14 Discharge Plan Discharge Patient Disposition: Home Clinical Impression: Biliary colic, Gastroesophageal reflux disease Condition: Stable Prescriptions: New Carafate 1 gram tablet 1 g PO TID 28 Days Qty: 84 0RF Reglan 10 mg tablet 10 mg PO Q6H PRN (Reason: nausea and vomiting) Qty: 14 0RF No Action prenat.vits,warner,[id number] Tablet 1 tab PO DAILY ferrous sulfate 325 mg (65 mg iron) tablet 325 mg PO DAILY Qty: 30 6RF Pepcid 20 mg tablet 20 mg PO BID 42 Days Qty: 84 0RF Discharge Orders: Discharge ED (Routine); Ordered 12/02/22 Ordered By: All Amanda Referrals: Yue Bruno DO [Primary Care Provider] - Manuel Patino MD [Physician] - 1-3 days Patient Instructions: Biliary Colic (ED), GERD (Gastroesophageal Reflux Disease) (ED), Opioid Safety, Pain Management Activity Restrictions/Additional Instructions: Continue your famotidine. Other medications as directed. Take the sucralfate 30 minutes prior to meals. Follow-up with your doctor next week. Return to the emergency department for fever greater than 100, vomiting liquids or medications, worsening pain despite treatment, other concerning symptoms. Coding Level of Care Code ED Search And Rescue Officer for Ivett Fernandes
== END 2022-12-02 21:28 | disposition home or self-care (01) ==
PROVIDERS: Emergency Provider Emergency Medicine; PCP Family Medicine
DX: O26.892 Other specified pregnancy related conditions, second trimester (principal); K21.9 Gastro-esophageal reflux disease without esophagitis; O99.612 Diseases of the digestive system complicating pregnancy, second trimester; K80.20 Calculus of gallbladder without cholecystitis without obstruction; Z3A.17 17 weeks gestation of pregnancy
CPT/HCPCS: 76705; 80053; 81001; 83690; 84702; 85025; 86140; 96361; 96374; 96375; 99285; J2270; J2405; J7030

== ENCOUNTER 2022-12-14 21:17 | Emergency (ER) | payer MEDICAID, SELFPAY ==
[2022-12-14 21:25] VITALS: BP 138/75; PULSE 102; RESP 20; TEMP 5390.5; TEMP 9735; O2SAT 100; BMI 29.0
--- NOTE | 2022-12-14 21:37 | ED_ITS ---
HPI - Abdominal Pain General: Chief Complaint: Abdominal Pain Stated Complaint: Preg\Possible Gallstones Time Seen by Provider: 12/14/22 21:31 Source: patient Mode of arrival: ambulatory Limitations: no limitations History of Present Illness: 22-year-old female who is currently states she has been having some epigastric pain over the last 2 weeks was seen here 2 weeks ago had an ultrasound that showed some sludge and gallstones but no signs of cholecystitis states that tonight started having some epigastric pain again its been a cramping type pain she rates it a 6 out of 10 has had some nausea denies any vomiting or diarrhea denies any fever denies any complaints. Associated Symptoms: Reports nausea; Denies chills, diarrhea, dysuria, fever(s) and vomiting Related Data: Date of Last Menstrual Period: 07/26/22 Review of Systems Const: Reports: change in appetite; Denies: fever(s) or chills Eyes: Denies: eye discomfort ENMT: Denies: throat pain or dental pain Card: Denies: chest pain Resp: Denies: dyspnea GI: Reports: abdominal pain and nausea; Denies: vomiting or diarrhea : Denies: dysuria or vaginal bleeding Musc: Denies: neck pain or back pain Skin/Breast: Denies: rash PFSH ED PFSH: Medical History Ganglion cyst of dorsum of right wrist Gestational diabetes Hx of pre-eclampsia in prior , currently No pertinent past medical history Neghx: Htn, DM, Thyroid, DVT/PE PCP: none Vaginal bleeding in Surgical History H/O oral surgery wisdom teeth extraction Status post section Family History Grandmother Breast cancer Paternal grandmother Unknown Family history of thyroid problem Paternal side Denies family history of Colon cancer Ovarian cancer Diabetes Heart disease Hyperlipidemia Hypertension Uterine cancer Stroke Social History Smoking and tobacco status: never smoked Alcohol intake: never Substance/Drug Use: never Current occupation: Works at [employer] Female Reproductive History: Date of last menstrual period: 07/26/22 Physical Exam Const: COMMON NORMALS: no acute distress, patient oriented x3 and healthy appearing HENMT: COMMON NORMALS: normocephalic and atraumatic HEAD & SCALP: normocephalic and atraumatic Eye: COMMON NORMALS: conjunctivae normal CONJUNCTIVA: Yes conjunctivae normal Neck/C-Spine: COMMON NORMALS: full ROM and supple Chest: COMMONS NORMALS: normal inspection of the chest and normal palpation of entire chest wall Resp: COMMON NORMALS: normal respiratory effort, No retractions, No use of accessory muscles and clear to auscultation bilaterally AUSCULTATION: clear to auscultation bilaterally Cardio: COMMON NORMALS: regular rate, regular rhythm and No murmurs present (C ardio) RATE: regular rate RHYTHM: regular rhythm GI: COMMON NORMALS: Normal to inspection, nondistended, normoactive bowel sounds present, Soft to palpation, non-tender and no masses PALPATION: Yes Soft to palpation Extremity: COMMON NORMALS: normal to inspection and full ROM Neuro: COMMON NORMALS: patient oriented x3, moves all extremities and no focal motor deficits Psych: COMMON NORMALS: mental status grossly normal, Normal thought process present and cooperative THOUGHT PROCESS: Normal thought process present Skin: COMMON NORMALS: no rashes or lesions noted and no wounds GENERAL SKIN EXAM: no rashes or lesions noted Course Vital Signs: Vital signs: Vital Signs Temperature 9735 F H 12/14/22 21:25 Pulse Rate 102 H 12/14/22 23:15 Respiratory Rate 16 12/14/22 23:15 Blood Pressure 123/70 12/14/22 23:15 Pulse Oximetry 98 12/14/22 23:15 Oxygen Delivery Me thod Room Air 12/14/22 22:28 MDM - Abdominal Pain Medical Decision Making Patient presents here with upper abdominal pain her blood work is all normal no signs of acute infection no signs of cholecystitis she just had ultrasound here 10 days ago. She is stable for discharge she is scheduled point with her OB next week I did a bedside ultrasound of the baby showed IUP with heart rate of 150s roughly 20 weeks no complaints here. Lab Data 12/14/22 21:42 12/14/22 21:42 Labs/Radiology: Laboratory Results WBC 11.9 10^3/uL (4.5-13.0) 12/14/22 21:42 RBC 3.90 10^6/uL (4.1-5.3) L 12/14/22 21:42 Hgb 9.6 g/dL (11.5-15.3) L 12/14/22 21:42 Hct 31.0 % (37.0-47.0) L 12/14/22 21:42 MCV 79.5 fl (81-99) L 12/14/22 21:42 MCH 24.6 pg (28.0-34.0) L 12/14/22 21:42 MCHC 31.0 g/dL (30.0-36.0) 12/14/22 21:42 RDW 14.6 % (12.1-15.1) 12/14/22 21:42 Plt Count 230 10^3/cmm (130-400) 12/14/22 21:42 MPV 12.1 fL (7.4-10.4) H 12/14/22 21:42 Neut % (Auto) 65.8 % 12/14/22 21:42 Lymph % (Auto) 24.6 % 12/14/22 21:42 [place] % (Auto) 6.1 % 12/14/22 21:42 Eos % (Auto) 2.0 % 12/14/22 21:42 Baso % (Auto) 0.7 % 12/14/22 21:42 Neut # (Auto) 7.81 10^3/uL (1.8-8.0) 12/14/22 21:42 Lymph # (Auto) 2.9 10^3/uL (1.5-6.5) 12/14/22 21:42 [place] # (Auto) 0.7 10^3/uL (0.2-0.9) 12/14/22 21:42 Eos # (Auto) 0.2 10^3/uL (0.0-0.8) 12/14/22 21:42 Baso # (Auto) 0.1 10^3/uL (0.0-0.1) 12/14/22 21:42 Nucleated RBC % (auto) 0 % 12/14/22 21:42 Nucleated RBCs # 0.0 /100WBC 12/14/22 21:42 Sodium 132 mmol/L (136-145) L 12/14/22 21:42 Potassium 3.7 mmol/L (3.5-5.1) 12/14/22 21:42 Chloride 103 mmol/L (98-107) 12/14/22 21:42 Carbon Dioxide 18 mmol/L (22-29) L 12/14/22 21:42 Anion Gap 14.7 (5-19) 12/14/22 21:42 BUN 11 mg/dL (6-20) 12/14/22 21:42 Creatinine 0.5 mg/dL (0.5-0.9) 12/14/22 21:42 Glucose 92 mg/dL (65-115) 12/14/22 21:42 Calculated Osmolality 273 mOsm/kg (285-295) L 12/14/22 21:42 Calcium 8.6 mg/dL (8.5-10.5) 12/14/22 21:42 Total Bilirubin 0.2 mg/dL (0.15-1.2) 12/14/22 21:42 AST 7 U/L (0-32) 12/14/22 21:42 ALT 7 U/L (0-33) 12/14/22 21:42 Alkaline Phosphatase 67 U/L (35-105) 12/14/22 21:42 Total Protein 6.4 g/dL (6.6-8.7) L 12/14/22 21:42 Albumin 3.7 g/dL (3.5-5.2) 12/14/22 21:42 Globulin 2.7 g/dL (1.3-4.6) 12/14/22 21:42 Lipase 38 U/L (13-60) 12/14/22 21:42 Urine Color Yellow (Yellow) 12/14/22 21:43 Urine Appearance Sl hazy (CLEAR) A 12/14/22 21:43 Urine pH 6.5 (5-7) 12/14/22 21:43 Ur Specific [place] 1.020 (1.005-1.030) 12/14/22 21:43 Urine Protein Neg (Negative) 12/14/22 21:43 Urine Glucose (UA) Norm (Normal) 12/14/22 21:43 Urine Ketones Negative (Negative) 12/14/22 21:43 Urine Blood Neg (Negative) 12/14/22 21:43 Urine Nitrate Negative (Negative) 12/14/22 21:43 Urine Bilirubin Neg (Negative) 12/14/22 21:43 Urine Urobilinogen Neg mg/dL (Negative) 12/14/22 21:43 Ur Leukocyte Esterase Negative (Negative) 12/14/22 21:43 Urine RBC None /hpf (0-2) 12/14/22 21:43 Urine WBC None /hpf (0-5) 12/14/22 21:43 Ur Squamous Epith Cells 5-10 /hpf (0-5) H 12/14/22 21:43 Amorphous Sediment 3+ /hpf 12/14/22 21:43 Urine Bacteria Trace /hpf (NONE) 12/14/22 21:43 Discharge Plan Discharge Patient Disposition: Home Clinical Impression: Abdominal pain Condition: Stable Prescriptions: No Action prenat.vits,warner,[id number] Tablet 1 tab PO DAILY ferrous sulfate 325 mg (65 mg iron) tablet 325 mg PO DAILY Qty: 30 6RF Pepcid 20 mg tablet 20 mg PO BID 42 Days Qty: 84 0RF Carafate 1 gram tablet 1 g PO TID 28 Days Qty: 84 0RF Reglan 10 mg tablet 10 mg PO Q6H PRN (Reason: nausea and vomiting) Qty: 14 0RF Discharge Orders: Discharge ED (Routine); Ordered 12/14/22 Ordered By: Roxanna Mason Referrals: Manuel Patino MD [Primary Care Provider] - Discharge Diet: Advance as tolerated Discharge Activity: Resume usual activity Patient Instructions: Abdominal Pain (ED) Coding Level of Care Code ED Taker Off for Ivett Fernandes
[2022-12-14] MEDS: lidocaine 2% viscous 15 ML, aluminum-mag hydrox-simethicon 30 ML, sucralfate oral liq 1 GM PO (21:50)
[2022-12-14] MEDS: sodium chloride 0.9% 1,000 ML 999 ML IV (21:56)
[2022-12-14 21:57] LABS: Basophils # 0.1 10^3/uL (0.0-0.1); Basophils % 0.7 %; Eosinophils # 0.2 10^3/uL (0.0-0.8); Hemoglobin 9.6 g/dL (11.5-15.3); Lymphocytes # 2.9 10^3/uL (1.5-6.5); Lymphocytes % 24.6 %; Mean Corpuscular Hemoglobin 24.6 pg (28.0-34.0); Mean Corpuscular Volume 79.5 fl (81-99); Mean Platelet Volume 12.1 fL (7.4-10.4); Monocytes # 0.7 10^3/uL (0.2-0.9); Monocytes % 6.1 %; Neutrophils # 7.81 10^3/uL (1.8-8.0); Neutrophils % 65.8 %; Nucleated Red Blood Cells % 0 %; Platelet Count 230 10^3/cmm (130-400); Red Cell Distribution Width 14.6 % (12.1-15.1); White Blood Count 11.9 10^3/uL (4.5-13.0)
[2022-12-14 21:58] VITALS: BP 118/65; PULSE 101; RESP 16; O2SAT 98
[2022-12-14] MEDS: ondansetron 2 mg/ML SDV 2 mL 4 MG IVP (21:59)
[2022-12-14 22:00] VITALS: RESP 18
[2022-12-14] MEDS: morphine 4 mg/mL SDV 1 mL IVP (22:00)
[2022-12-14 22:07] LABS: Add Urine Culture? No; Add Urine Microscopic? YES; Amorphous Sediment Urine 3+ /hpf; Bacteria Urine TRACE /hpf; Bilirubin Urine Neg (Negative); Blood Urine Neg (Negative); Glucose Urine UA Norm (Normal); Ketones Urine Negative (Negative); Leukocyte Esterase Urine Negative (Negative); Nitrate Urine Negative (Negative); Protein Urine Neg (Negative); Urine Appearance SL Hazy (CLEAR); Urine Color Yellow (Yellow); Urobilinogen Urine Neg (Negative); pH Urine 6.5 (5-7)
[2022-12-14 22:14] LABS: Alanine Aminotransferase 7 U/L (0-33); Albumin Level 3.7 g/dL (3.5-5.2); Alkaline Phosphatase 67 U/L (35-105); Anion Gap 14.7 (5-19); Aspartate Amino Transferase 7 U/L (0-32); Blood Urea Nitrogen 11 mg/dL (6-20); Calcium 8.6 mg/dL (8.5-10.5); Chloride 103 mmol/L (98-107); Globulin 2.7 g/dL (1.3-4.6); Glucose 92 mg/dL (65-115); Lipase 38 U/L (13-60); Potassium 3.7 mmol/L (3.5-5.1); Total Bilirubin 0.2 mg/dL (0.15-1.2)
[2022-12-14 22:18] LABS: Carbon Dioxide 18 mmol/L (22-29); Total Protein 6.4 g/dL (6.6-8.7)
[2022-12-14 22:19] LABS: Osmolality Calculated 273 mOsm/kg (285-295); Sodium 132 mmol/L (136-145)
[2022-12-14 22:28] VITALS: BP 108/69; PULSE 97; RESP 16; O2SAT 98
[2022-12-14 22:30] VITALS: RESP 18; O2SAT 98
[2022-12-14] MEDS: HYDROmorphone 1 mg/mL INJ 1 mL IVP (22:30)
[2022-12-14 23:15] VITALS: BP 123/70; PULSE 102; RESP 16; O2SAT 98
== END 2022-12-14 23:46 | disposition home or self-care (01) ==
PROVIDERS: Emergency Provider Emergency Medicine; PCP Family Medicine
DX: O26.892 Other specified pregnancy related conditions, second trimester (principal); R10.13 Epigastric pain; Z3A.20 20 weeks gestation of pregnancy
CPT/HCPCS: 80053; 81001; 83690; 85025; 96361; 96374; 96375; 99284; J1170; J2270; J2405; J7030

== ENCOUNTER 2022-12-16 10:41 | Emergency (ER) | payer MEDICAID, SELFPAY ==
[2022-12-16 10:45] VITALS: BP 115/84; PULSE 109; RESP 16; TEMP 36.7; O2SAT 98; BMI 27.7
--- NOTE | 2022-12-16 11:27 | ED_ITS ---
HPI - Abdominal Pain General: Chief Complaint: Abdominal Pain Stated Complaint: , abd pain Time Seen by Provider: 12/16/22 11:05 Source: patient Mode of arrival: ambulatory History of Present Illness: 22-year-old female who presents to the emergency room with complaints of abdominal discomfort for the last month. She is currently approximately 17 to 18 weeks . She states she had previously been evaluated and was told she had a large gallstone she has right upper quadrant abdominal pain persistent nausea and vomiting denies any hematemesis or coffee-ground emesis no dysuria urgency or frequency no hematochezia or melena. MD elicited complaint: abdominal pain Pertinent past history: other (Cholelithiasis) Onset (ago): hour(s) Pain Consistency: constant Location: RUQ Severity: moderate Quality: cramping Radiation: RUQ Exacerbating factors: eating Relieving factors: nothing Associated Symptoms: Denies anorexia, belching, bloating, change in bowel habits, change in stool character, chills, coffee ground emesis, constipation, GI cramping, diarrhea, dyspepsia, dysuria, excessive flatus, fever(s), heartburn, hematochezia, hematuria, hematemesis, fecal incontinence, loose stools, melena, nausea, poor appetite, syncope and vomiting Related Data: Date of Last Menstrual Period: 07/23/22 Review of Systems Const: Denies: fever(s) or chills ENMT: Denies: throat pain, ear or mastoid pain, nasal discharge or nasal congestion Card: Denies: syncope Resp: Denies: dyspnea, productive cough or non-productive cough GI: Denies: nausea, vomiting, hematemesis, coffee ground emesis, heartburn, diarrhea, constipation, bloating, GI cramping, belching, excessive flatus, fecal incontinence, change in bowel habits, change in stool character, hematochezia or melena : Denies: dysuria or hematuria Skin/Breast: Denies: rash or pruritus PFSH ED PFSH: Medical History Ganglion cyst of dorsum of right wrist Gestational diabetes Hx of pre-eclampsia in prior , currently No pertinent past medical history Neghx: Htn, DM, Thyroid, DVT/PE PCP: none Vaginal bleeding in Surgical History H/O oral surgery wisdom teeth extraction Status post section Family History Grandmother Breast cancer Paternal grandmother Unknown Family history of thyroid problem Paternal side Denies family history of Colon cancer Ovarian cancer Diabetes Heart disease Hyperlipidemia Hypertension Uterine cancer Stroke Social History Smoking and tobacco status: never smoked Alcohol intake: never Substance/Drug Use: never Current occupation: Works at [employer] Reproductive History: Date of last menstrual period: 07/23/22 Physical Exam Const: GENERAL APPEARANCE: cooperative and comfortable ORIENTATION/CONSCIOUSNESS: Yes awake, Yes oriented to person, Yes oriented to place and Yes oriented to time HENMT: COMMON NORMALS: normocephalic, atraumatic and hearing grossly normal bilaterally HEAD & SCALP: normocephalic and atraumatic Resp: COMMON NORMALS: normal respiratory effort, No retractions, No use of accessory muscles and clear to auscultation bilaterally AUSCULTATION: clear to auscultation bilaterally Cardio: COMMON NORMALS: regular rate, regular rhythm and No murmurs present (Cardio) RATE: regular rate RHYTHM: regular rhythm GI: COMMON NORMALS: Soft to palpation and No hepatosplenomegaly present AUSCULTATION: Yes normoactive bowel sounds PALPATION: Yes Soft to palpation, No Tenderness to palpation present (GI), No Guarding due to palpation present (GI) and Yes No hepatosplenomegaly present Extremity: COMMON NORMALS: normal to inspection, capillary refill normal, no clubbing, cyanosis or edema, no calf tenderness and no pedal edema Neuro: SENSORIUM/ORIENTATION: Yes oriented to person, Yes oriented to place and Yes oriented to time Skin: COMMON NORMALS: no rashes or lesions noted GENERAL SKIN EXAM: no rashes or lesions noted Course Vital Signs: Vital signs: Vital Signs Temperature 98.0 F 12/16/22 10:45 Pulse Rate 100 12/16/22 13:22 Respiratory Rate 16 12/16/22 10:45 Blood Pressure 105/51 12/16/22 13:22 Pulse Oximetry 100 12/16/22 13:22 Oxygen Delivery Me thod Room Air 12/16/22 10:45 MDM - Abdominal Pain Medical Decision Making Previous gallbladder ultrasound showed sludge. With no leukocytosis no transaminitis or hyperbilirubinemia. Suspect she is having some biliary colic. We will discharge patient home continue to use the ondansetron or Reglan as needed continue the famotidine and still Carafate as well. Clear liquid diet added take Legius 2 tablets in the morning. I called and talked to Dr. Patino who with her primary residential service technician about the findings and suspicion of the cause of her symptoms at this time he believes that she had an appointment the following week he would reevaluate her for the test at that time and discuss options with her. Advised patient to return if she has any further problems. Medical Records I reviewed the patient's medical records. Lab Data I reviewed the patient's lab results. 12/16/22 11:30 12/16/22 11:30 Labs/Radiology: Laboratory Results WBC 11.4 10^3/uL (4.5-13.0) 12/16/22 11:30 RBC 4.25 10^6/uL (4.1-5.3) 12/16/22 11:30 Hgb 10.4 g/dL (11.5-15.3) L 12/16/22 11:30 Hct 34.0 % (37.0-47.0) L 12/16/22 11:30 MCV 80.0 fl (81-99) L 12/16/22 11:30 MCH 24.5 pg (28.0-34.0) L 12/16/22 11:30 MCHC 30.6 g/dL (30.0-36.0) 12/16/22 11:30 RDW 14.6 % (12.1-15.1) 12/16/22 11:30 Plt Count 208 10^3/cmm (130-400) 12/16/22 11:30 MPV 11.9 fL (7.4-10.4) H 12/16/22 11:30 Neut % (Auto) 75.8 % 12/16/22 11:30 Lymph % (Auto) 17.2 % 12/16/22 11:30 [place] % (Auto) 5.0 % 12/16/22 11:30 Eos % (Auto) 1.1 % 12/16/22 11:30 Baso % (Auto) 0.4 % 12/16/22 11:30 Neut # (Auto) 8.61 10^3/uL (1.8-8.0) H 12/16/22 11:30 Lymph # (Auto) 2.0 10^3/uL (1.5-6.5) 12/16/22 11:30 [place] # (Auto) 0.6 10^3/uL (0.2-0.9) 12/16/22 11:30 Eos # (Auto) 0.1 10^3/uL (0.0-0.8) 12/16/22 11:30 Baso # (Auto) 0.1 10^3/uL (0.0-0.1) 12/16/22 11:30 Nucleated RBC % (auto) 0 % 12/16/22 11: Nucleated RBCs # 0.0 /100WBC 12/16/22 11:30 Sodium 138 mmol/L (136-145) 12/16/22 11:30 Potassium 4.2 mmol/L (3.5-5.1) 12/16/22 11:30 Chloride 105 mmol/L (98-107) 12/16/22 11:30 Carbon Dioxide 21 mmol/L (22-29) L 12/16/22 11:30 Anion Gap 16.2 (5-19) 12/16/22 11:30 BUN 7 mg/dL (6-20) 12/16/22 11:30 Creatinine 0.5 mg/dL (0.5-0.9) 12/16/22 11:30 GFR Calculation 157.3 mL/min (90-130) H 12/16/22 11:30 Glucose 105 mg/dL (65-115) 12/16/22 11:30 Calculated Osmolality 284 mOsm/kg (285-295) L 12/16/22 11:30 Calcium 8.7 mg/dL (8.5-10.5) 12/16/22 11:30 Total Bilirubin 0.3 mg/dL (0.15-1.2) 12/16/22 11:30 AST 9 U/L (0-32) 12/16/22 11:30 ALT 6 U/L (0-33) 12/16/22 11:30 Alkaline Phosphatase 79 U/L (35-105) 12/16/22 11:30 Total Protein 6.9 g/dL (6.6-8.7) 12/16/22 11:30 Albumin 3.8 g/dL (3.5-5.2) 12/16/22 11:30 Globulin 3.1 g/dL (1.3-4.6) 12/16/22 11:30 Urine Color Yellow (Yellow) 12/16/22 11:30 Urine Appearance Sl hazy (CLEAR) A 12/16/22 11:30 Urine pH 8 (5-7) H 12/16/22 11:30 Ur Specific [place] 1.010 (1.005-1.030) 12/16/22 11:30 Urine Protein Neg (Negative) 12/16/22 11:30 Urine Glucose (UA) Norm (Normal) 12/16/22 11:30 Urine Ketones Negative (Negative) 12/16/22 11:30 Urine Blood Neg (Negative) 12/16/22 11:30 Urine Nitrate Negative (Negative) 12/16/22 11:30 Urine Bilirubin Neg (Negative) 12/16/22 11:30 Urine Urobilinogen Norm mg/dL (Negative) 12/16/22 11:30 Ur Leukocyte Esterase Negative (Negative) 12/16/22 11:30 Urine RBC None /hpf (0-2) 12/16/22 11:30 Urine WBC None /hpf (0-5) 12/16/22 11:30 Ur Squamous Epith Cells 5-10 /hpf (0-5) H 12/16/22 11:30 Amorphous Sediment Not Reportable 12/16/22 11:30 Urine Bacteria 1+ /hpf (NONE) H 12/16/22 11:30 Discharge Plan Discharge Patient Disposition: Home Clinical Impression: Biliary colic, Nausea & vomiting Condition: Stable Prescriptions: New Diclegis 10-10 mg tablet,delayed release (DR/EC) 2 tab PO DAILY Qty: 90 0RF No Action famotidine [Pepcid] 20 mg tablet 20 mg PO BID 42 Days Qty: 84 0RF sucralfate [Carafate] 1 gram tablet 1 g PO TID 28 Days Qty: 84 0RF metoclopramide HCl [Reglan] 10 mg tablet 10 mg PO Q6H PRN (Reason: nausea and vomiting) Qty: 14 0RF Tylenol Ex Str Rapid Release 500 mg Tablet 500 - 1,000 mg PO Q6H PRN (Reason: Pain) ondansetron 4 mg tablet,disintegrating 4 mg PO DAILY PRN (Reason: Nausea And Vomiting) Multivitamins 28 mg iron- 800 mcg Tablet 1 tab PO BEDTIME ferrous sulfate 325 mg (65 mg iron) tablet 325 mg PO BEDTIME Discharge Orders: Discharge ED (Routine); Ordered 12/16/22 Ordered By: Urbano Wiley Referrals: Manuel Patino MD [Primary Care Provider] - Discharge Diet: Clear Liquid Discharge Activity: Increase activity as tolerated Patient Instructions: Abdominal Pain (ED), Opioid Safety, Pain Management Activity Restrictions/Additional Instructions: You are seen today for persistent nausea and vomiting. Suspect you may have some biliary colic due to the sludge in your gallbladder. Due to your HIDA scan is not a good option. Your liver enzymes and bilirubin were normal and previous ultrasound her gallbladder only showed sludge. Your white count today was normal. Recommend clear liquid diet we will add diclegius 2 tablets e ach morning. You can continue to use the ondansetron as needed. Follow-up with Dr. Patino within the next week. Stand Alone Forms: Work/School Release Coding Level of Care Code ED M[employer]er for Ivett Fernandes
[2022-12-16] MEDS: sodium chloride 0.9% 1,000 ML 999 ML IV ×2 (11:41→12:29)
[2022-12-16] MEDS: diphenhydrAMINE 50 mg/mL SDV 1mL 25 MG IVP (11:41)
[2022-12-16 11:45] LABS: Basophils # 0.1 10^3/uL (0.0-0.1); Basophils % 0.4 %; Eosinophils # 0.1 10^3/uL (0.0-0.8); Eosinophils % 1.1 %; Hemoglobin 10.4 g/dL (11.5-15.3); Lymphocytes % 17.2 %; Mean Corpuscular HGB Conc 30.6 g/dL (30.0-36.0); Mean Corpuscular Hemoglobin 24.5 pg (28.0-34.0); Mean Platelet Volume 11.9 fL (7.4-10.4); Monocytes # 0.6 10^3/uL (0.2-0.9); Neutrophils # 8.61 10^3/uL (1.8-8.0); Neutrophils % 75.8 %; Nucleated Red Blood Cells % 0 %; Platelet Count 208 10^3/cmm (130-400); Red Blood Count 4.25 10^6/uL (4.1-5.3); Red Cell Distribution Width 14.6 % (12.1-15.1); White Blood Count 11.4 10^3/uL (4.5-13.0)
[2022-12-16 11:46] VITALS: BP 111/74; O2SAT 99
[2022-12-16 11:55] LABS: Add Urine Microscopic? YES; Bilirubin Urine Neg (Negative); Blood Urine Neg (Negative); Glucose Urine UA Norm (Normal); Ketones Urine Negative (Negative); Leukocyte Esterase Urine Negative (Negative); Nitrate Urine Negative (Negative); Protein Urine Neg (Negative); Urine Appearance SL Hazy (CLEAR); Urine Color Yellow (Yellow); Urobilinogen Urine Norm (Negative); pH Urine 8 (5-7)
[2022-12-16 11:56] LABS: Add Urine Culture? No; Bacteria Urine 1+ /hpf
[2022-12-16 12:03] LABS: Alanine Aminotransferase 6 U/L (0-33); Albumin Level 3.8 g/dL (3.5-5.2); Alkaline Phosphatase 79 U/L (35-105); Anion Gap 16.2 (5-19); Aspartate Amino Transferase 9 U/L (0-32); Blood Urea Nitrogen 7 mg/dL (6-20); Calcium 8.7 mg/dL (8.5-10.5); Carbon Dioxide 21 mmol/L (22-29); Chloride 105 mmol/L (98-107); Globulin 3.1 g/dL (1.3-4.6); Glomerular Filtration Rate 157.3 mL/min (90-130); Glucose 105 mg/dL (65-115); Osmolality Calculated 284 mOsm/kg (285-295); Potassium 4.2 mmol/L (3.5-5.1); Sodium 138 mmol/L (136-145); Total Bilirubin 0.3 mg/dL (0.15-1.2); Total Protein 6.9 g/dL (6.6-8.7)
[2022-12-16 12:32] VITALS: BP 108/52; PULSE 96; O2SAT 100
[2022-12-16 13:07] VITALS: BP 105/61; O2SAT 100
[2022-12-16 13:22] VITALS: BP 105/51; PULSE 100; O2SAT 100
== END 2022-12-16 13:23 | disposition home or self-care (01) ==
PROVIDERS: Emergency Provider Family Medicine; PCP Family Medicine
DX: O26.892 Other specified pregnancy related conditions, second trimester (principal); R11.2 Nausea with vomiting, unspecified; K80.50 Calculus of bile duct without cholangitis or cholecystitis without obstruction; Z3A.17 17 weeks gestation of pregnancy
CPT/HCPCS: 80053; 81001; 85025; 96361; 96374; 99284; J1200; J7030

== ENCOUNTER 2022-12-19 09:05 | Outpatient (CLI) | payer MEDICAID, SELFPAY ==
--- NOTE | 2022-12-19 09:30 | US_ITS ---
WS: [id number] OBSTETRICAL ULTRASOUND COMPLETE HISTORY: Anatomy US COMPARISON: None available. Single intrauterine gestation in breech presentation. Cervix is Closed and normal length. Cervical length is 3.4 cm. Normal amount of amniotic fluid surrounds the fetus. Placenta: Posterior, lateral and anterior. Placenta grade 1 Heart: 153 BPM. 4 chambers valuation of the heart was not obtained. Very difficult obtaining the isabella ect axis for the four-chamber heart. LEFT ventricular outflow tract is limited also. Continuity of th e intraventricular septum is not adequately identified. Normal RVOT. Anatomy: Intracranial structures and spine are normal. kidneys, stomach and urinary bladd er are unremarkable. Abdominal wall, three-vessel cord and cord insertion site are normal. 4 extremities are present. profile: Unremarkable. Gender: Female. measurements: BPD = 4.7 cm = 20w2d; greater than the 98th percentile. HC = 17.3 cm = 19w6d; 98th percentile. AC = 13.8 cm = 19w2d; 82nd percentile. FL = 3.4 cm = 20w5d; greater than the 98th percentile. EFW: 321 g. Not available. Biometry is internally concordant. AGA by ultrasound: 20w1d FRANCISCA by ultrasound: 05/07/2023 US/US OB >= 14 weeks fetus [id number] IMPRESSION: 1. Single intrauterine gestation of 20w1d with an FRANCISCA of 05/07/2023. 2. BPD and femur length percentiles are greater than 98th percentile. Abdomina l circumference percentile at the 82nd percentile. May be due to a large for ge stational fetus. Also LMP may not be accurate. No first trimester ultrasound av ailable for more accurate dating. 3. Limited four-chamber heart and LVOT. Otherwise anatomy is normal. 4. Breech.
== END 2022-12-19 09:06 | disposition home or self-care (01) ==
LOC: RAD 09:08
PROVIDERS: PCP Family Medicine; Visit Provider Family Medicine
DX: Z34.82 Encounter for supervision of other normal pregnancy, second trimester (principal); Z3A.20 20 weeks gestation of pregnancy
CPT/HCPCS: 76805

== ENCOUNTER 2022-12-29 11:02 | Day surgery (SDC) | payer MEDICAID, SELFPAY ==
[2022-12-28 09:37] VITALS: BMI 29.0
[2022-12-29] VITALS (10 sets, daily range): BP systolic 105–131; BP diastolic 51–74; PULSE 76–124; RESP 16–20; TEMP 36.4–36.8; O2SAT 95–100
[2022-12-29] MEDS: sodium chloride 0.9% 1,000 ML 30 ML IV (11:31)
--- NOTE | 2022-12-29 11:52 | W.PM.OPSUD ---
Surgery/Procedure H&P Update DATE OF PROCEDURE: December 29, 2022 DATE H&P PERFORMED: 12/23/22 H&P UPDATE INFORMATION: I have reviewed H&P completed within last 30 days, I have examined patient prior to procedure and No changes to prior documentation PLANNED PROCEDURE: Operation Date: 12/29/22 12:35 Proposed Procedures p 39224 lap nadiya k80.20(Not Applicable) - Odilon Morgan DO
--- NOTE | 2022-12-29 12:02 | PC.NURSE ---
heart tones [address] Graves notified.
[2022-12-29] MEDS: ceFAZolin 2,000 MG in sodium chloride 0.9% (plus) 50 ML 100 MG IV (12:04)
[2022-12-29] MEDS: lidocaine-epi 2% 20 mL INJ INJECTION (12:28)
--- NOTE | 2022-12-29 12:38 | P.OP_ITS ---
Operative Report Date of procedure: December 29, 2022 Pre-op diagnosis: Symptomatic cholelithiasis Post-op diagnosis: same Procedure done: Laparoscopic cholecystectomy Specimens removed/disposition: Gallbladder Surgeon: Dr. Odilon Morgan DO Anesthesia: General Estimated blood loss (mL): 5 Complications: None apparent Brief History: This is a very pleasant 22-year-old female who is currently with her second child. She has symptomatic cholelithiasis and could no longer stand the pain. Despite the risks she wanted to proceed with cholecystectomy. The risk and benefits were explained and documented. Procedure: Patient was wheeled into the operative room and placed on the OR table in a supine position. Abdomen was inspected prepped and draped in usual sterile fashion. Time-out was performed and all present were in agreement. A 15 blade scalp was used to make a stab incision in the left upper quadrant and intra- abdominal insufflation was achieved using a Veress needle. After localizing the tissue incisions were made and a 5 millimeter trocar was placed into the umbilicus as well as 2 in the right upper quadrant. A 10 millimeter trocar was placed in the epigastrium. Gallbladder was grasped and elevated. The triangle of Calot was carefully dissected using blunt dissection and electrocautery until the triangle of Calot clearly identified. The cystic duct was clipped proximally and double clipped distally. The duct was then ligated proximally. The cystic artery was doubly clipped and ligated. The gallbladder was then removed from the liver bed using electrocautery. The gallbladder was removed from the abdomen using an Endo-Catch bag through the epigastric incision. The liver bed was inspected and no bleeding was seen. The abdomen was irrigated and suctioned. The 10 port site was closed at the fascia with a Anil-Brian and 0 Vicryl in a [id number] fashion. All ports removed. Skin was washed and dried. Incisions were closed with 3-0 and 4-O Vicryl in a subcuticular interrupted fashion. Skin glue was applied. Patient tolerated the procedure well.
--- NOTE | 2022-12-29 13:02 | PC.NURSE ---
OB LUCIEN Gastelum at bedside, FHT 150bpm with doppler noted.
[2022-12-29] MEDS: fentaNYL 50 mcg/mL INJ 2mL IVP (13:04)
--- NOTE | 2022-12-29 13:07 | ANES.PREANE2 ---
Pre-Anesthetic Assessment Height/Weight: Height 1.68 m Weight 81.647 kg Temp Pulse Resp BP Pulse Ox O2 Del Method O2 Flow Rate 97.9 F 96 16 115/72 97 Simple Mask 6 12/29/22 12:53 12/29/22 12:58 12/29/22 13:04 12/29/22 12:58 12/29/22 13:04 12/29/22 12:58 12/29/22 12:58 Operation Date: 12/29/22 12:35 Proposed Procedures p 76396 lap nadiya k80.20(Not Applicable) - Odilon Morgan DO Familial anesthetic complications: none Was Beta Johnathon taken within 24 hours: N/A Was Clonidine taken within 24 hours: N/A Last intake: Intake Last Liquid Date 12/28/22 Last Liquid Time 23:45 Last Solid Date 12/28/22 Last Solid Time 15:00 Social No alcohol and No tobacco Exam alert, oriented x 3, clear to auscultation bilaterally and regular rate & rhythm Airway Submandibular: within normal limits Cervical ROM: within normal limits Mallampati: Class I Dentition: full GI Gastroesophageal Reflux Disease Neuropsych Depression Anesthetic Plan ASA status: 2 Anesthesia: General Other: 20 wk Medications/Allergies Home Medications Medication Instructions Recorded Confirmed Last Taken Type metoclopramide HCl 10 mg tablet 10 mg PO Q6H PRN nausea and 12/02/22 12/28/22 12/16/22 04:00 Rx (Reglan) vomiting #14 tabs doxylamine 10 mg-pyridoxine (vit 2 tab PO DAILY #90 tabs 12/16/22 12/28/22 12/28/22 Rx B6) 10 mg tablet,delayed release (Diclegis) vit no.95-ferrous 1 tab PO BEDTIME 12/16/22 12/28/22 12/27/22 History fumarate 28 mg-folic acid 800 mcg tablet ( Multivitamins) famotidine 20 mg tablet (Pepcid) 20 mg PO DAILY 12/28/22 12/28/22 Unknown History docusate sodium 100 mg capsule 100 mg PO BID #14 caps 12/29/22 Unknown Rx (Colace) hydrocodone 5 mg-acetaminophen 325 1 tab PO Q6H PRN pain #20 tabs 12/29/22 Unknown Rx mg tablet Allergies Allergy/AdvReac Type Severity Reaction Status Date / Time promethazine AdvReac Intermediate ADR-Vomitin Verified 12/16/22 11:46 g Current Medications Generic Name Dose Route Start Last Admin Trade Name Jennie PRN Reason Stop Dose Admin Fentanyl 50 mcg 12/29/22 12:41 12/29/22 13:04 Fentanyl 50 Mcg/Ml Inj 2ml IVP 12/30/22 12:41 50 mcg Q5M PRN Administration Pain level 1-5 PACU Phase I Sodium Chloride 1,000 mls @ 30 mls/hr 12/29/22 11:15 12/29/22 11:31 Sodium Chloride 0.9% IV 12/30/22 11:14 30 mls/hr .Q24H LY Administration PFSH Anesthesia Medical History Ganglion cyst of dorsum of right wrist Gestational diabetes Hx of pre-eclampsia in prior , currently No pertinent past medical history Neghx: Htn, DM, Thyroid, DVT/PE PCP: none Vaginal bleeding in Surgical History H/O oral surgery wisdom teeth extraction Status post section Family History Grandmother Breast cancer Paternal grandmother Unknown Family history of thyroid problem Paternal side Denies family history of Colon cancer Ovarian cancer Diabetes Heart disease Hyperlipidemia Hypertension Uterine cancer Stroke Social History Smoking and tobacco status: never smoked Alcohol intake: never Substance/Drug Use: never Current occupation: Works at [employer] Reproductive History Date of last menstrual period: 07/26/23 Data Anesthesia Cardiac Studies: No Data to Display
[2022-12-29] MEDS: HYDROcodone-acetaminophen 5-325 mg Tablet 1 TAB PO (13:42)
--- NOTE | 2022-12-29 16:13 | ANE.PACU2 ---
Inpatient post-anesthesia follow up: Airway intact: Yes Vital signs: Temperature 97.6 F Pulse Rate 83 Respiratory Rate 18 Blood Pressure 110/70 Pulse Oximetry 99 Oxygen Delivery Me thod Room Air Oxygen Flow Rate 6 Fraction of Inspir ed Oxygen Hydration adequate: Yes Nausea and vomiting: No Pain level: 3 Mental status: Baseline
== END 2022-12-29 14:15 | disposition home or self-care (01) ==
PROVIDERS: PCP Family Medicine; Visit Provider Surgery
PROC: 0FT44ZZ Resection of Gallbladder, Percutaneous Endoscopic Approach (ICD-10-PCS; CPT 47562; principal; 2022-12-29 12:25)
DX: K80.10 Calculus of gallbladder with chronic cholecystitis without obstruction (principal); K21.9 Gastro-esophageal reflux disease without esophagitis; F32.A Depression, unspecified
CPT/HCPCS: 47562; 88304; J0330; J0690; J2405; J2704; J2710; J3010; J3490; J7030

== ENCOUNTER 2023-01-06 11:08 | Outpatient (CLI) | payer MEDICAID, SELFPAY ==
--- NOTE | 2023-01-06 11:15 | US_ITS ---
WS: [id number] OB ultrasound, 01/06/2023 Clinical Data: Follow up US over heart and LVOT Comparison: OB ultrasound, 12/19/2022 Findings: There is a single intrauterine in the breech presentation. The placenta is posterior and fu ndal and grade 0. There is a normal amount of amnionic fluid. The heart rate is 157 beats per m inute. anatomy shows a four-chamber heart, normal LVOT and RVOT. US/US OB limited [id number] Impression: 1. Single intrauterine in breech presentation. 2. Normal heart, RVOT and LVOT. 3. heart rate 157 beats per minute.
== END 2023-01-06 11:09 | disposition home or self-care (01) ==
LOC: RAD 11:09
PROVIDERS: PCP Family Medicine; Visit Provider Family Medicine
DX: O32.1XX0 Maternal care for breech presentation, not applicable or unspecified (principal); Z3A.00 Weeks of gestation of pregnancy not specified
CPT/HCPCS: 76815

== ENCOUNTER 2023-02-22 15:22 | Outpatient (CLI) | payer MEDICAID, SELFPAY ==
[2022-04-26] VITALS (8 sets, daily range): PULSE 85–108; RESP 16–17; TEMP 36.7; O2SAT 97–100
[2022-04-27 00:15] VITALS: PULSE 99; RESP 17; O2SAT 97
[2022-04-27 01:15] VITALS: PULSE 101; RESP 17; O2SAT 96
[2022-04-27 03:15] VITALS: PULSE 86; RESP 17; TEMP 37.1
[2022-04-27 11:53] VITALS: PULSE 99; RESP 14; TEMP 36.6
[2022-04-27 22:00] VITALS: PULSE 99; RESP 16; O2SAT 97
[2022-04-28 04:15] VITALS: PULSE 72; RESP 16; O2SAT 97
[2023-02-22 15:40] VITALS: RESP 17
[2023-02-22 15:41] VITALS: BMI 29.7
[2023-02-22 15:44] VITALS: BP 115/61; PULSE 102; TEMP 35.9
[2023-02-22 16:04] VITALS: BP 104/53; PULSE 88
[2023-02-22 16:25] VITALS: BP 104/53; PULSE 88
== END 2023-02-22 16:25 | disposition home or self-care (01) ==
LOC: OPOB 15:28 → OBGYN 15:30
PROVIDERS: PCP Family Medicine; Visit Provider Family Medicine
DX: O36.8190 Decreased fetal movements, unspecified trimester, not applicable or unspecified (principal); Z3A.00 Weeks of gestation of pregnancy not specified
CPT/HCPCS: 59025; 99211

== ENCOUNTER → 2023-03-06 10:57 | Outpatient (BNVA) | payer MEDICAID, SELFPAY | PROVIDERS: PCP Family Medicine; Visit Provider Family Medicine | DX: Z34.80 Encounter for supervision of other normal pregnancy, unspecified trimester (principal) | CPT/HCPCS: 82950 ==

== ENCOUNTER 2023-03-09 19:27 | Outpatient (CLI) | payer MEDICAID, SELFPAY ==
[2023-03-09] VITALS (12 sets, daily range): BP systolic 114–136; BP diastolic 57–81; PULSE 98–125; RESP 16; BMI 29.8
[2023-03-09 20:59] LABS: Add Urine Culture? No; Bilirubin Urine Neg (Negative); Blood Urine Neg (Negative); Glucose Urine UA Norm (Normal); Ketones Urine Negative (Negative); Leukocyte Esterase Urine Negative (Negative); Mucus Urine 2+ /hpf; Nitrate Urine Negative (Negative); Protein Urine Neg (Negative); RBC Urine 0-4 /hpf (0-2); Specific Gravity, Urine 1.015 (1.005-1.030); Squamous Epithelial Cell Urine 0-4 /hpf (0-5); Urine Appearance Clear (CLEAR); Urine Color Yellow (Yellow); Urobilinogen Urine Norm (Negative); WBC Urine 0-4 /hpf (0-5); pH Urine 6 (5-7)
--- NOTE | 2023-03-09 21:32 | USR_ITS ---
PROCEDURE INFORMATION: Exam: US Biophysical Profile Without Non-Stress Test Exam date and time: 03/09/2023 11:12 PM Age: 22 years old Clinical indication: Pain indication: Maternal stomach pain x 9 hours. No vaginal bleeding. ; Additional info: Abdominal pain, no vaginal bleeding, do bpp, check placenta for signs of bleeding also TECHNIQUE: Imaging protocol: US biophysical profile without non-stress testing. COMPARISON: US OB >= 14 weeks fetus [id number] 12/19/2022 9:42 AM FINDINGS: heart rate: 141 bpm presentation: Cephalic Placenta: Posterior grade 1 placenta without previa. Amniotic fluid: Amniotic fluid volume is normal. Amniotic fluid index: BLANK is 16.3 cm. BIOPHYSICAL PROFILE: breathing movement (BPP): 2/2 body movement (BPP): 2/2 tone (BPP): 2/2 Amniotic fluid (BPP): 2/2 Biophysical profile score (BPP): 8/8 MATERNAL ANATOMY: Cervix: Cervical length measures 3.7 cm. US/US OB BPP wo NST [id number] IMPRESSION: Biophysical profile score normal at 8/8.
[2023-03-09] MEDS: acetaminophen 325 mg Tablet 650 MG PO (21:41)
== END 2023-03-09 23:35 | disposition home or self-care (01) ==
LOC: OPOB 19:33 → OBGYN 19:34
PROVIDERS: PCP Family Medicine; Visit Provider Family Medicine
DX: O26.899 Other specified pregnancy related conditions, unspecified trimester (principal); Z3A.00 Weeks of gestation of pregnancy not specified; R10.9 Unspecified abdominal pain
CPT/HCPCS: 59025; 76819; 81001; 99211

== ENCOUNTER 2023-03-10 22:49 | Outpatient (CLI) | payer MEDICAID, SELFPAY ==
[2023-03-10 22:45] VITALS: BMI 29.5
[2023-03-10 22:54] VITALS: BP 115/67; PULSE 102; TEMP 36.2
[2023-03-10 23:10] VITALS: BP 106/57; PULSE 100
[2023-03-10 23:46] LABS: Bilirubin Urine Neg (Negative); Blood Urine Neg (Negative); Glucose Urine UA Norm (Normal); Ketones Urine 1+ (Negative); Leukocyte Esterase Urine Negative (Negative); Nitrate Urine Negative (Negative); Protein Urine Trace (Negative); Specific Gravity, Urine 1.015 (1.005-1.030); Urine Appearance Hazy (CLEAR); Urine Color Yellow (Yellow); Urobilinogen Urine Norm (Negative); pH Urine 7 (5-7)
[2023-03-10 23:49] LABS: Bacteria Urine TRACE /hpf; Mucus Urine 1+ /hpf; RBC Urine 0-4 /hpf (0-2); WBC Urine 0-4 /hpf (0-5)
[2023-03-11] VITALS: BP 106/54; PULSE 96; RESP 16; TEMP 36.6
[2023-03-11 00:05] VITALS: BP 106/54; PULSE 96
== END 2023-03-11 00:10 | disposition home or self-care (01) ==
LOC: OPOB 22:50 → OBGYN 22:50
PROVIDERS: PCP Family Medicine; Visit Provider Family Medicine
DX: O26.899 Other specified pregnancy related conditions, unspecified trimester (principal); Z3A.00 Weeks of gestation of pregnancy not specified; R10.9 Unspecified abdominal pain
CPT/HCPCS: 59025; 81001; 99211

== ENCOUNTER 2023-03-13 14:47 | Outpatient (CLI) | payer MEDICAID, SELFPAY ==
[2023-03-13 14:30] VITALS: BMI 29.5
[2023-03-13 15:06] VITALS: BP 122/65; PULSE 104
--- NOTE | 2023-03-13 15:32 | US_ITS ---
WS: [id number] ULTRASOUND OB LIMITED TECHNIQUE: Limited ultrasound examination of the fetus. CLINICAL INFORMATION: STAT FOR ABD PAIN COMPARISON: March 09, 2023 FINDINGS: Cervix appears long and closed. Cervix measures 4.4 cm Single interuterine gestation. presentation is vertex Placental location is anterior fundal. Placenta grade: 1 heart rate 144 BPM. Evidence of prior scar. US/US OB limited [id number] IMPRESSION: 1. Cervix is long and closed measuring 4.4 CM. 2. No evidence of abruption. 3. Placenta is anterior fundal. 4. presentation is vertex.
[2023-03-13 16:49] LABS: Glucose Urine UA 1+ (Normal); Ketones Urine 1+ (Negative); Protein Urine Trace (Negative); Specific Gravity, Urine 1.015 (1.005-1.030); Urine Appearance Clear (CLEAR); Urine Color Yellow (Yellow); pH Urine 8 (5-7)
[2023-03-13 16:50] LABS: Add Urine Culture? No; Bacteria Urine TRACE /hpf; Bilirubin Urine Neg (Negative); Blood Urine 2+ (Negative); Leukocyte Esterase Urine Negative (Negative); Mucus Urine TRACE /hpf; Nitrate Urine Negative (Negative); Sulfosalicylic Acid Urine Negative (Negative); Urobilinogen Urine Norm (Negative); WBC Urine 15-25 /hpf (0-5)
[2023-03-13 17:03] VITALS: BP 116/65; PULSE 94
[2023-03-13 17:26] VITALS: TEMP 36.8
[2023-03-13 18:05] VITALS: BP 116/65; PULSE 94; RESP 18; TEMP 36.8
== END 2023-03-13 17:50 | disposition home or self-care (01) ==
LOC: OPOB 14:48 → OBGYN 14:49
PROVIDERS: Family Medicine; PCP Family Medicine; Visit Provider Family Medicine
DX: O26.899 Other specified pregnancy related conditions, unspecified trimester (principal); R10.9 Unspecified abdominal pain; R25.2 Cramp and spasm; Z3A.00 Weeks of gestation of pregnancy not specified
CPT/HCPCS: 59025; 76815; 81001; 99211

== ENCOUNTER 2023-03-14 00:32 | Outpatient (CLI) | payer MEDICAID, SELFPAY ==
[2023-03-14] VITALS (50 sets, daily range): BP systolic 122–144; BP diastolic 58–80; PULSE 105–150; RESP 15–18; TEMP 36.3–36.4; O2SAT 90–100; BMI 28.7
[2023-03-14] MEDS: lactated ringers 1,000 ML 999 ML IV ×2 (01:19→03:32)
[2023-03-14] MEDS: ondansetron 2 mg/ML SDV 2 mL 4 MG IVP (01:19)
[2023-03-14] MEDS: metoclopramide 5 mg/mL SDV 2 mL IVP (02:52)
[2023-03-14] MEDS: acetaminophen 500 mg Tablet 1000 MG PO ×2 (02:52→09:52)
[2023-03-14 03:10] LABS: Add Urine Microscopic? YES; Bilirubin Urine Neg (Negative); Blood Urine 3+ (Negative); Glucose Urine UA Trace (Normal); Ketones Urine 3+ (Negative); Leukocyte Esterase Urine Negative (Negative); Nitrate Urine Negative (Negative); Protein Urine Neg (Negative); Urine Color Yellow (Yellow); Urobilinogen Urine Neg (Negative); pH Urine 6 (5-7)
[2023-03-14 03:12] LABS: Add Urine Culture? Yes; Bacteria Urine TRACE /hpf; RBC Urine 15-25 /hpf (0-2); WBC Urine 0-4 /hpf (0-5)
[2023-03-14 03:33] LABS: Basophils # 0.1 10^3/uL (0.0-0.1); Basophils % 0.3 %; Hematocrit 29.5 % (37.0-47.0); Hemoglobin 8.7 g/dL (11.5-15.3); Lymphocytes # 1.9 10^3/uL (1.5-6.5); Lymphocytes % 13.2 %; Mean Corpuscular HGB Conc 29.5 g/dL (30.0-36.0); Mean Corpuscular Hemoglobin 21.9 pg (28.0-34.0); Mean Corpuscular Volume 74.1 fl (81-99); Mean Platelet Volume 10.4 fL (7.4-10.4); Monocytes # 0.8 10^3/uL (0.2-0.9); Monocytes % 5.1 %; Neutrophils % 80.8 %; Nucleated Red Blood Cells % 0 %; Platelet Count 186 10^3/cmm (130-400); Red Blood Count 3.98 10^6/uL (4.1-5.3); Red Cell Distribution Width 15.5 % (12.1-15.1); White Blood Count 14.7 10^3/uL (4.5-13.0)
[2023-03-14 03:50] LABS: Alanine Aminotransferase 7 U/L (0-33); Albumin Level 3.6 g/dL (3.5-5.2); Alkaline Phosphatase 125 U/L (35-105); Anion Gap 19.5 (5-19); Aspartate Amino Transferase 13 U/L (0-32); Blood Urea Nitrogen 7 mg/dL (6-20); Calcium 8.6 mg/dL (8.5-10.5); Carbon Dioxide 20 mmol/L (22-29); Chloride 103 mmol/L (98-107); Globulin 2.7 g/dL (1.3-4.6); Glomerular Filtration Rate 91.4 mL/min (90-130); Glucose 103 mg/dL (65-115); Lipase 29 U/L (13-60); Osmolality Calculated 286 mOsm/kg (285-295); Potassium 3.5 mmol/L (3.5-5.1); Sodium 139 mmol/L (136-145); Total Bilirubin 0.4 mg/dL (0.15-1.2); Total Protein 6.3 g/dL (6.6-8.7)
--- NOTE | 2023-03-14 04:56 | US_ITS ---
WS: [id number] RENAL ULTRASOUND HISTORY: Right Lower Quad Pain COMPARISON: 12/02/2022 TECHNIQUE: 2-D and color Doppler imaging of the kidney submitted. Right kidney: 12.9 cm x 6.7 cm x 7.5 cm. Cortex: 1.3 cm Kidney has very slightly increased in size since the prior study. Moderate hydronephrosis with mild d ilatation of the proximal RIGHT ureter. Hydronephrosis is new since 12/02/2022. Left kidney: 11.5 cm x 5.6 cm x 6.1 cm. Cortex: 1.2 cm Normal echogenicity with no hydronephrosis or mass. Aorta: Normal. Urinary Bladder: Nondistended. US/US renal BI* [id number] IMPRESSION: 1. Moderate RIGHT hydronephrosis. New since 12/02/2022. May be related to patie nt's . 2. Negative LEFT kidney.
[2023-03-14] MEDS: lactated ringers 1,000 ML 125 ML IV (05:06)
[2023-03-14] MEDS: morphine 4 mg/mL SDV 1 mL IVP (05:06)
--- NOTE | 2023-03-14 07:40 | US_ITS ---
WS: [id number] Ultrasound abdomen, limited. History: RIGHT lower quadrant pain. Comparison: 11/22/2021 Ultrasound is directed to the RIGHT lower quadrant in the area of pain. The appendix is not definitel y identified in the RIGHT lower quadrant. There are no inflammatory changes or fluid to suggest an ac [place] inflammatory process. US/US appendix [id number] IMPRESSION: Appendix is not identified. No secondary evidence for appendicitis.
--- NOTE | 2023-03-14 07:48 | P.HP_ITS ---
Providers/Chief Complaint Admitting Physician: Jonathan Jennings MD Primary Care Provider: Manuel Patino MD Chief Complaint: Vomiting History of Present Illness Geo Monique is a 22 year old G3, P1 female who presents for intractable vomiting. Patient is currently 33 weeks gestational age. Patient reports no significant complications during except that she has failed her 1 hour glucose tolerance test and she was post: For repeat 3-hour glucose tolerance juan r t.. Patient states that she started vomiting and has had severe abdominal pain. Initially in the left lower quadrant towards the midline and is now completely in the right lower quadrant. Patient was seen earlier and was diagnosed with UTI and was started on antibiotics. Patient was unable to keep the antibiotics down and Zofran was not controlling her nausea. Overnight the patient obtained lab work which demonstrated a elevated white blood count but otherwise fairly unremarkable. UA did show microscopic hematuria. Patient was given Zofran and Reglan without significant improvement in her nausea. Pain medication was given and this seemed to help some. Emesis is dark brown almost coffee-ground in appearance. Patient received 2 L of fluid overnight. Review of Systems General: Reports: 10 or more systems reviewed and unremarkable except in HPI and below Const: Reports: body aches and change in appetite; Denies: fever(s), chills or change in weight Resp: Denies: dyspnea, productive cough or non-productive cough GI: Reports: abdominal pain, nausea, vomiting, coffee ground emesis, heartburn and diarrhea; Denies: hematemesis, constipation, hematochezia or melena Medications/Allergies Home Medications Medication Instructions Recorded Confirmed Last Taken Type vit no.95-ferrous 1 tab PO BEDTIME 12/16/22 03/14/23 03/13/23 History fumarate 28 mg-folic acid 800 mcg tablet ( Multivitamins) famotidine 20 mg tablet (Pepcid) 20 mg PO DAILY 12/28/22 03/14/23 03/09/23 16:00 History Allergies Allergy/AdvReac Type Severity Reaction Status Date / Time promethazine AdvReac Intermediate ADR-Vomitin Verified 03/14/23 01:58 g PFSH Acute PFSH: Medical History (Updated 03/14/23 @ 07:59 by Jonathan Jennings MD) Ganglion cyst of dorsum of right wrist Gestational diabetes Hx of pre-eclampsia in prior , currently No pertinent past medical history Neghx: Htn, DM, Thyroid, DVT/PE PCP: none Vaginal bleeding in Surgical History H/O oral surgery wisdom teeth extraction History of surgery on right wrist Hx laparoscopic cholecystectomy 12/29/22 Status post section Family History Grandmother Breast cancer Paternal grandmother Unknown Family history of thyroid problem Paternal side Denies family history of Colon cancer Ovarian cancer Diabetes Heart disease Hyperlipidemia Hypertension Uterine cancer Stroke Social History Smoking and tobacco status: never smoked Alcohol intake: never Substance/Drug Use: never Current occupation: Works at [employer] Female Reproductive History: : 3 Vitals/I&O/Wt Last Vital Signs Temp 97.3 F L 03/14/23 03:03 Pulse 126 H 03/14/23 05:58 Resp 16 03/14/23 05:06 BP 129/59 03/14/23 05:53 Pulse Ox 99 03/14/23 05:58 O2 Del Method Room Air 03/14/23 05:17 03/13/23 03/14/23 03/14/23 22:59 06:59 14:59 Intake Total 1999 Balance 1999 Weight last 48 hrs Weight 80.739 kg Physical Exam Const: COMMON NORMALS: alert GENERAL APPEARANCE: ill appearing Neck/C-Spine: COMMON NORMALS: no lymphadenopathy and supple GENERAL: Yes normal visual inspection and Yes trachea midline Chest: COMMONS NORMALS: normal inspection of the chest Resp: COMMON NORMALS: normal respiratory effort and No retractions Cardio: COMMON NORMALS: no JVD, regular rate and regular rhythm GI: OTHER: Abdomen is soft, right lower quadrant tenderness with mild rebound, gravid uterus Extremity: COMMON NORMALS: no clubbing, cyanosis or edema Neuro: COMMON NORMALS: moves all extremities, no focal motor deficits and no sensory deficits noted Psych: COMMON NORMALS: mental status grossly normal and cooperative Skin: COMMON NORMALS: no rashes or lesions noted, no jaundice and no petechiae Data 03/14/23 03:25 03/14/23 03:25 A&P Assessment and plan (1) Intractable vomiting with nausea: Continue to treat nausea with Zofran and as needed Reglan. (2) Right lower quadrant abdominal pain: Patient had some improvement of pain with IV morphine. We will rule out appendicitis. Other possibilities given the fact that she has microscopic hematuria would be renal stone. May need to do CT scan (3) Multigravida in third trimester: Attestations Medical Necessity Statement*: Patient admitted for observation due to intractable vomiting and further testing.. Coding Level of Care Code Acute Code for Chg Fwd Diagnoses Intractable vomiting with nausea R11.2 Right lower quadrant abdominal pain R10.31 Multigravida in third trimester Z34.83
[2023-03-14 08:25] LABS: Gastricult Occult Blood Positive (Negative)
[2023-03-14] MEDS: calcium carbonate 500 mg Chew Tablet 1000 MG PO (09:52)
--- NOTE | 2023-03-14 12:45 | P.DS_ITS ---
Discharge Providers Date of Admission: 03/14/23 04:48 Date of Discharge: March 14, 2023 Attending Provider at Admission: Jonathan Jennings MD Attending Provider at Discharge: Jonathan Jennings MD Primary Care Provider: Manuel Patino MD Diagnoses at Discharge Discharge Diagnosis (1) Intractable vomiting with nausea: Status: Acute (2) Right lower quadrant abdominal pain: Status: Acute (3) Multigravida in third trimester: Status: Acute (4) Renal stone: Status: Acute Reason for Visit Reason for Visit: Vomiting Brief History: This is a 22-year-old that presents with intractable nausea and vomiting Hospital Course Hospital Course The patient was having intractable nausea and vomiting and initially was having a little bit of left sided abdominal pain which transition to severe right lower quadrant pain. Patient was having some coffee-ground like emesis after she been vomiting for several hours. Patient was having difficulty keeping anything down. She was rating her pain 10 out of 10. Blood work work was unremarkable, but a UA showed microscopic hematuria. The patient did not have any improvement initially with Zofran or Reglan. Ultrasound showed dilated calyces and collecting systems consistent with hydronephrosis. Given the fact that the patient was having the left sided pain and it transition to right lower quadrant pain and ultrasound for appendicitis was performed and the appendix was not identified. Patient was treated with pain medications and IV fluids and symptoms did improve. Based on the information that we obtain she was diagnosed with a kidney stone and likely to be at the [facility] based on symptoms. Patient opted to go home with directions to push fluids and pain medications to help control her pain. Patient already had a prescription for Zofran. Physical Exam Const: COMMON NORMALS: alert GENERAL APPEARANCE: ill appearing Neck/C-Spine: COMMON NORMALS: no lymphadenopathy, supple and no JVD GENERAL: Yes normal visual inspection and Yes trachea midline Chest: COMMONS NORMALS: normal inspection of the chest Resp: COMMON NORMALS: normal respiratory effort and No retractions Cardio: COMMON NORMALS: no JVD, regular rate and regular rhythm RATE: regular rate RHYTHM: regular rhythm GI: OTHER: Abdomen is soft, right lower quadrant tenderness with mild rebound, gravid uterus Extremity: COMMON NORMALS: no clubbing, cyanosis or edema Neuro: COMMON NORMALS: moves all extremities, no focal motor deficits and no sensory deficits noted SENSORIUM/ORIENTATION: Yes alert Psych: COMMON NORMALS: mental status grossly normal and cooperative Skin: COMMON NORMALS: no rashes or lesions noted, no jaundice and no petechiae GENERAL SKIN EXAM: no rashes or lesions noted Discharge Data Studies Completed and Pending Completed Studies During Hospitalization Category Date Time Status [place] appendix [id number] Stat Ultrasound 03/14/23 07:40 Completed US kidney bilateral [US renal BI* [id number]] Urgent Ultrasound 03/14/23 04:56 Completed Pending at discharge Category Date Time Status Urine Culture Routine Lab 03/14/23 02:45 Received Radiology Impressions Renal Ultrasound 03/14/23 04:56 IMPRESSION: 1. Moderate RIGHT hydronephrosis. New since 12/02/2022. May be related to patient's . 2. Negative LEFT kidney. Appendix Ultrasound 03/14/23 07:40 IMPRESSION: Appendix is not identified. No secondary evidence for appendicitis. Laboratory Results WBC 14.7 10^3/uL (4.5-13.0) H 03/14/23 03:25 RBC 3.98 10^6/uL (4.1-5.3) L 03/14/23 03:25 Hgb 8.7 g/dL (11.5-15.3) L 03/14/23 03:25 Hct 29.5 % (37.0-47.0) L 03/14/23 03:25 MCV 74.1 fl (81-99) L 03/14/23 03:25 MCH 21.9 pg (28.0-34.0) L 03/14/23 03:25 MCHC 29.5 g/dL (30.0-36.0) L 03/14/23 03:25 RDW 15.5 % (12.1-15.1) H 03/14/23 03:25 Plt Count 186 10^3/cmm (130-400) 03/14/23 03:25 MPV 10.4 fL (7.4-10.4) 03/14/23 03:25 Neut % (Auto) 80.8 % 03/14/23 03:25 Lymph % (Auto) 13.2 % 03/14/23 03:25 [place] % (Auto) 5.1 % 03/14/23 03:25 Eos % (Auto) 0.0 % 03/14/23 03:25 Baso % (Auto) 0.3 % 03/14/23 03:25 Neut # (Auto) 11.90 10^3/uL (1.8-8.0) H 03/14/23 03:25 Lymph # (Auto) 1.9 10^3/uL (1.5-6.5) 03/14/23 03:25 [place] # (Auto) 0.8 10^3/uL (0.2-0.9) 03/14/23 03:25 Eos # (Auto) 0.0 10^3/uL (0.0-0.8) 03/14/23 03:25 Baso # (Auto) 0.1 10^3/uL (0.0-0.1) 03/14/23 03:25 Nucleated RBC % (auto) 0 % 03/14/23 03:25 Nucleated RBCs # 0.0 /100WBC 03/14/23 03:25 Sodium 139 mmol/L (136-145) 03/14/23 03:25 Potassium 3.5 mmol/L (3.5-5.1) 03/14/23 03:25 Chloride 103 mmol/L (98-107) 03/14/23 03:25 Carbon Dioxide 20 mmol/L (22-29) L 03/14/23 03:25 Anion Gap 19.5 (5-19) H 03/14/23 03:25 BUN 7 mg/dL (6-20) 03/14/23 03:25 Creatinine 0.8 mg/dL (0.5-0.9) 03/14/23 03:25 GFR Calculation 91.4 mL/min (90-130) 03/14/23 03:25 Glucose 103 mg/dL (65-115) 03/14/23 03:25 Calculated Osmolality 286 mOsm/kg (285-295) 03/14/23 03:25 Calcium 8.6 mg/dL (8.5-10.5) 03/14/23 03:25 Total Bilirubin 0.4 mg/dL (0.15-1.2) 03/14/23 03:25 AST 13 U/L (0-32) 03/14/23 03:25 ALT 7 U/L (0-33) 03/14/23 03:25 Alkaline Phosphatase 125 U/L (35-105) H 03/14/23 03:25 Total Protein 6.3 g/dL (6.6-8.7) L 03/14/23 03:25 Albumin 3.6 g/dL (3.5-5.2) 03/14/23 03:25 Globulin 2.7 g/dL (1.3-4.6) 03/14/23 03:25 Lipase 29 U/L (13-60) 03/14/23 03:25 Urine Color Yellow (Yellow) 03/14/23 02:45 Urine Appearance Sl cloudy (CLEAR) A 03/14/23 02:45 Urine pH 6 (5-7) 03/14/23 02:45 Ur Specific [place] 1.020 (1.005-1.030) 03/14/23 02:45 Urine Protein Neg (Negative) 03/14/23 02:45 Urine Glucose (UA) Trace (Normal) H 03/14/23 02:45 Urine Ketones 3+ (Negative) H 03/14/23 02:45 Urine Blood 3+ (Negative) H 03/14/23 02:45 Urine Nitrate Negative (Negative) 03/14/23 02:45 Urine Bilirubin Neg (Negative) 03/14/23 02:45 Urine Urobilinogen Neg mg/dL (Negative) 03/14/23 02:45 Ur Leukocyte Esterase Negative (Negative) 03/14/23 02:45 Urine RBC 15-25 /hpf (0-2) H 03/14/23 02:45 Urine WBC 0-4 /hpf (0-5) H 03/14/23 02:45 Ur Squamous Epith Cells 5-10 /hpf (0-5) H 03/14/23 02:45 Amorphous Sediment Not Reportable 03/14/23 02:45 Urine Bacteria Trace /hpf (NONE) 03/14/23 02:45 Gastric Occult Blood Positive (Negative) H 03/14/23 08:15 Vitals Last Vital Signs Temp 97.5 F L 03/14/23 10:30 Pulse 106 H 03/14/23 10:30 Resp 15 03/14/23 10:30 BP 131/64 03/14/23 10:30 Pulse Ox 99 03/14/23 05:58 O2 Del Method Room Air 03/14/23 05:17 Discharge Plan Discharge Patient Disposition: Home Prescriptions: Continued famotidine [Pepcid] 20 mg Tablet 20 mg PO DAILY PNV cmb#95-ferrous fumarate-FA [ Multivitamins] 28 mg iron- 800 mcg Tablet 1 tab PO BEDTIME Discharge Orders: Discharge Order (Routine); Ordered 03/14/23 Ordered By: Jonathan Jennings Referrals: Manuel Patino MD [Primary Care Provider] - 03/23/23 10:50 am (Follow up with Dr Patino for next week when back in office. ) Patient Instructions: Hydrocodone/Acetaminophen (By mouth), Labor (DC), Kidney Stones (DC), Preeclampsia During (DC), at 31 to 34 Weeks (DC), Opioid Safety, OB Undelivered Discharge Stand Alone Forms: Work/School Release Discharge Date/Time: 03/14/23 10:38 Discharge Attestations Time Spent in Discharge Care*: less than 30 min Quality Metrics Clinical Quality Measures [ No reported AMI, CVA or VTE this stay] Coding Level of Care Code Acute Code for Chg Fwd Diagnoses Intractable vomiting with nausea R11.2 Right lower quadrant abdominal pain R10.31 Multigravida in third trimester Z34.83 Renal stone N20.0
== END 2023-03-14 10:38 | disposition home or self-care (01) ==
LOC: OPOB 00:33 → OBGYN 00:50
PROVIDERS: PCP Family Medicine; Visit Provider Family Medicine
DX: O26.893 Other specified pregnancy related conditions, third trimester (principal); N20.0 Calculus of kidney; R11.2 Nausea with vomiting, unspecified; N39.0 Urinary tract infection, site not specified; N13.30 Unspecified hydronephrosis
CPT/HCPCS: 36415; 59025; 76705; 76770; 80053; 81001; 82271; 83690; 85025; 87086; 96374; 99211; G0378; J2270; J2405; J2765; J7120

== ENCOUNTER → 2023-03-23 11:07 | Outpatient (BNVA) | payer MEDICAID, SELFPAY | PROVIDERS: PCP Family Medicine; Visit Provider Family Medicine | DX: N20.0 Calculus of kidney (principal) | CPT/HCPCS: 81000; 87086 ==

== ENCOUNTER 2023-04-10 12:44 | Outpatient (CLI) | payer MEDICAID, SELFPAY ==
--- NOTE | 2023-04-10 13:00 | US_ITS ---
WS: [id number] ULTRASOUND OB LIMITED TECHNIQUE: Limited ultrasound examination of the fetus. G3, P1 CLINICAL INFORMATION: Small for gestational age - EFW/BLANK in next 1-2 weeks COMPARISON: 03/13/2023 FINDINGS: Cervix is long and closed measuring 3.2 cm Single interuterine gestation. presentation is vertex placental location is anterior fundal. Placenta grade: 2 heart rate 147 BPM. Normal amniotic fluid volume. BLANK 16.2cm Anatomy: Head circumference and abdominal circumference small for gestational age. BDP: 8.9 cm = 36w1d HC: 32.3 cm = 36w3d AC: 29.5 cm = 33w3d FEMUR LENGTH: 7.0 cm = 36w0d Estimated weight: 2505 g; 5 pounds 8 ounces EGA by ultrasound: 35w4d FRANCISCA by ultrasound: 05/11/2023 IMPRESSION: 1. Single intrauterine gestation with vertex presentation. 2. measurements small for gestational age. 3. Placenta is anterior fundal 4. Normal amniotic fluid volume. 5. Cervix appears long and closed.
== END 2023-04-10 12:45 | disposition home or self-care (01) ==
LOC: RAD 12:46
PROVIDERS: PCP Family Medicine; Visit Provider Family Medicine
DX: O36.5930 Maternal care for other known or suspected poor fetal growth, third trimester, not applicable or unspecified (principal); Z3A.00 Weeks of gestation of pregnancy not specified
CPT/HCPCS: 76815

== ENCOUNTER 2023-04-11 21:32 | Outpatient (CLI) | payer MEDICAID, SELFPAY ==
[2023-04-11] VITALS (8 sets, daily range): BP systolic 112–128; BP diastolic 57–84; PULSE 84–112; RESP 16; TEMP 36.3; BMI 29.8
--- NOTE | 2023-04-11 21:55 | USR_ITS ---
PROCEDURE INFORMATION: Exam: US Biophysical Profile Without Non-Stress Test Exam date and time: 04/11/2023 10:26 PM Age: 22 years old Clinical indication: status abnormalities: ; movements, decreased; Single gestation; Third trimester (=28 weeks 0 days); ; Additional info: Include pulsatility index, also blank and efw TECHNIQUE: Imaging protocol: US biophysical profile without non-stress testing. COMPARISON: US OB BPP wo NST twins 03/09/2023 11:12 PM FINDINGS: heart rate: 150 bpm Amniotic fluid: Amniotic fluid volume is normal. Amniotic fluid index: BLANK is 10 cm. BIOPHYSICAL PROFILE: breathing movement (BPP): 2/2 body movement (BPP): 2/2 tone (BPP): 2/2 Amniotic fluid (BPP): 2/2 Biophysical profile score (BPP): 8/8 US/US OB lm w fetalBPP woNST &umb IMPRESSION: Biophysical profile score of 8/8.
[2023-04-12 00:07] VITALS: BP 118/60; PULSE 84; RESP 15
== END 2023-04-11 23:38 | disposition home or self-care (01) ==
LOC: OPOB 21:33 → OBGYN 21:34
PROVIDERS: PCP Family Medicine; Visit Provider Family Medicine
DX: O36.8190 Decreased fetal movements, unspecified trimester, not applicable or unspecified (principal); Z3A.28 28 weeks gestation of pregnancy
CPT/HCPCS: 59025; 76815; 76819; 76820; 99211

== ENCOUNTER → 2023-04-12 13:17 | Outpatient (BNVA) | payer MEDICAID, SELFPAY | PROVIDERS: PCP Family Medicine; Visit Provider Family Medicine | DX: Z51.81 Encounter for therapeutic drug level monitoring (principal); Z34.90 Encounter for supervision of normal pregnancy, unspecified, unspecified trimester | CPT/HCPCS: 85025; 87081 ==

== ENCOUNTER 2023-04-16 14:38 | Outpatient (CLI) | payer MEDICAID, SELFPAY ==
[2023-04-11 21:57] VITALS: RESP 16
[2023-04-16 14:51] VITALS: BP 102/71; PULSE 103
[2023-04-16 15:00] VITALS: BMI 29.3
[2023-04-16 15:07] VITALS: BP 109/57; PULSE 107
[2023-04-16 15:22] VITALS: BP 111/67; PULSE 90
[2023-04-16 15:37] VITALS: BP 105/57; PULSE 81
[2023-04-16 15:40] LABS: Bacteria Urine TRACE /hpf; Bilirubin Urine Neg (Negative); Blood Urine Neg (Negative); Glucose Urine UA Norm (Normal); Ketones Urine 1+ (Negative); Leukocyte Esterase Urine Trace (Negative); Nitrate Urine Negative (Negative); Protein Urine Neg (Negative); Specific Gravity, Urine 1.015 (1.005-1.030); Urine Appearance Clear (CLEAR); Urine Color Yellow (Yellow); Urobilinogen Urine Norm (Negative); WBC Urine 0-4 /hpf (0-5); pH Urine 7 (5-7)
[2023-04-16 15:41] LABS: Add Urine Culture? No; Mucus Urine 1+ /hpf
[2023-04-16 15:51] VITALS: BP 106/59; PULSE 97
== END 2023-04-16 16:25 | disposition home or self-care (01) ==
LOC: OPOB 14:40 → OBGYN 14:41
PROVIDERS: PCP Family Medicine; Visit Provider Family Medicine
DX: O26.899 Other specified pregnancy related conditions, unspecified trimester (principal); R25.2 Cramp and spasm; Z3A.00 Weeks of gestation of pregnancy not specified
CPT/HCPCS: 59025; 81001; 99211

== ENCOUNTER 2023-04-18 13:52 | Oncology outpatient (recurring) (ONCR) | payer MEDICAID, SELFPAY ==
[2023-04-18 14:00] VITALS: BP 126/67; PULSE 85; RESP 16; TEMP 36.8; O2SAT 94
[2023-04-18] MEDS: iron sucrose 100 MG in sodium chloride 0.9% (100 ml) 100 ML IV (14:13)
[2023-04-18] MEDS: sodium chloride 0.9% 250 ML 75 ML IV (14:13)
[2023-04-18 15:00] VITALS: BP 110/69; PULSE 102; RESP 16; TEMP 36.7; O2SAT 98
== END 2023-04-20 23:59 | disposition home or self-care (01) ==
PROVIDERS: PCP Family Medicine; Visit Provider Internal Medicine Medical Oncology
DX: O99.019 Anemia complicating pregnancy, unspecified trimester (principal); Z3A.00 Weeks of gestation of pregnancy not specified
CPT/HCPCS: 96365; J1756; J7050

== ENCOUNTER 2023-04-21 09:30 | Outpatient (CLI) | payer MEDICAID, SELFPAY ==
[2023-04-21 09:35] VITALS: RESP 18
[2023-04-21 09:42] VITALS: TEMP 35.8
[2023-04-21 09:43] VITALS: BP 126/75; PULSE 92
[2023-04-21 09:44] VITALS: BMI 29.9
[2023-04-21 09:59] VITALS: BP 132/64; PULSE 81
[2023-04-21 10:14] VITALS: BP 132/68; PULSE 90
[2023-04-25] VITALS (91 sets, daily range): BP systolic 99–117; BP diastolic 51–70; PULSE 74–113; O2SAT 97–100
[2023-04-26] VITALS (10 sets, daily range): BP systolic 99–122; BP diastolic 53–70; PULSE 78–99; RESP 15–18; TEMP 35.9–36.6; O2SAT 98–99
[2023-04-27 01:52] VITALS: BP 110/51; PULSE 95
[2023-04-27 06:00] VITALS: PULSE 100; TEMP 37
[2023-04-27 06:03] VITALS: BP 123/58; PULSE 100; TEMP 35.3
[2023-04-27 10:12] VITALS: BP 119/59; PULSE 95
[2023-04-30 01:21] VITALS: BP 127/67; PULSE 71
[2023-04-30 01:51] VITALS: BP 178/89; PULSE 87
[2023-04-30 02:21] VITALS: BP 136/85; PULSE 86
[2023-04-30 02:51] VITALS: BP 137/80; PULSE 73
== END 2023-04-21 10:20 | disposition home or self-care (01) ==
LOC: OPOB 09:34 → OBGYN 10:12
PROVIDERS: PCP Family Medicine; Visit Provider Family Medicine
DX: O36.5990 Maternal care for other known or suspected poor fetal growth, unspecified trimester, not applicable or unspecified (principal); Z3A.00 Weeks of gestation of pregnancy not specified
CPT/HCPCS: 59025

== ENCOUNTER 2023-04-25 04:58 | Inpatient (IN) | payer MEDICAID, SELFPAY ==
--- NOTE | 2023-04-18 10:37 | ANES.PREANE2 ---
Pre-Anesthetic Assessment Height/Weight: Height 1.68 m Operation Date: 04/25/23 07:00 Proposed Procedures p Section(Not Applicable) - Manuel Patino MD Familial anesthetic complications: None Was Beta Johnathon taken within 24 hours: N/A Was Clonidine taken within 24 hours: N/A Last intake: >8 hrs Social No alcohol and No tobacco Exam alert, oriented x 3, clear to auscultation bilaterally and regular rate & rhythm Airway Mallampati: Class I Dentition: full GI Gastroesophageal Reflux Disease Metabolic hx gestational DM and pre-eclampsia Anesthetic Plan ASA status: 2 Anesthesia: Regional (specify below) Risk of > 500 ml blood loss (7ml/kg in children): No Medications/Allergies Home Medications Medication Instructions Recorded Confirmed Last Taken Type vit no.95-ferrous 1 tab PO BEDTIME 12/16/22 04/16/23 03/13/23 History fumarate 28 mg-folic acid 800 mcg tablet ( Multivitamins) ferrous sulfate 325 mg (65 mg 325 mg PO BID #60 tabs 03/23/23 04/16/23 Unknown Rx iron) tablet ondansetron HCl 4 mg tablet 4 mg PO Q6H PRN nausea and 03/23/23 04/16/23 Unknown Rx vomiting #30 tabs omeprazole 10 mg capsule,delayed mg PO 04/16/23 Unknown History release Allergies Allergy/AdvReac Type Severity Reaction Status Date / Time promethazine AdvReac Intermediate ADR-Vomitin Verified 03/14/23 01:58 g PFSH Anesthesia Medical History (Updated 04/13/23 @ 08:34 by Manuel Patino MD) Ganglion cyst of dorsum of right wrist Gestational diabetes Hx of pre-eclampsia in prior , currently No pertinent past medical history Neghx: Htn, DM, Thyroid, DVT/PE PCP: none Vaginal bleeding in Surgical History H/O oral surgery wisdom teeth extraction History of surgery on right wrist Hx laparoscopic cholecystectomy 12/29/22 Status post section Family History Grandmother Breast cancer Paternal grandmother Unknown Family history of thyroid problem Paternal side Denies family history of Colon cancer Ovarian cancer Diabetes Heart disease Hyperlipidemia Hypertension Uterine cancer Stroke Social History Smoking and tobacco status: never smoked Alcohol intake: never Substance/Drug Use: never Current 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
[2023-04-25] VITALS (34 sets, daily range): BP systolic 103–123; BP diastolic 53–70; PULSE 73–126; RESP 15–18; TEMP 36.4; O2SAT 98–100; BMI 29.7
[2023-04-25 05:22] LABS: Basophils % 0.4 %; Eosinophils % 0.4 %; Hematocrit 29.8 % (36-47); Lymphocytes # 3.2 10^3/uL (1.5-6.5); Lymphocytes % 29.4 %; Mean Corpuscular HGB Conc 28.5 g/dL (30-55); Mean Corpuscular Hemoglobin 20.9 pg (27-33); Mean Corpuscular Volume 73.2 fl (85-98); Monocytes # 0.5 10^3/uL (0.2-0.9); Neutrophils # 6.97 10^3/uL (1.8-8.0); Neutrophils % 64.4 %; Nucleated Red Blood Cells % 0 %; Platelet Count 219 10^3/cmm (157-399); Red Blood Count 4.07 10^6/uL (3.85-5.65); Red Cell Distribution Width 18.9 % (12.1-15.1)
[2023-04-25] MEDS: lactated ringers 1,000 ML 999 ML IV (06:04)
[2023-04-25] MEDS: ceFAZolin 2,000 MG in sodium chloride 0.9% (plus) 50 ML 100 MG IV (06:15)
--- NOTE | 2023-04-25 06:36 | PM.HP ---
Providers/Chief Complaint Admitting Physician: Manuel Patino MD Primary Care Provider: Manuel Patino MD Chief Complaint: csection History of Present Illness Geo Monique is a 22 year old @ 39.0 wks by LMP c/with 20 wk US. Preg c/b h/o gDM, h/o severe oligohydramnios, GERD, h/o 1st TM bleeding, h/o LTCS due to breech presentation, anemia, hyperemesis gravidarum, likely gDM - diet controlled, status post cholecystectomy during second trimester. The patient presents to labor and delivery for a scheduled repeat section. The patient has been feeling well overall. She denies any chest pains, shortness of breath, vomiting, fever, cough, abdominal pain, diarrhea, constipation, leakage of fluid, vaginal bleeding. She has had some stable nausea. The patient has not eaten since 1150 last night. Medications/Allergies Home Medications Medication Instructions Recorded Confirmed Last Taken Type vit no.95-ferrous 1 tab PO BEDTIME 12/16/22 04/25/23 04/23/23 History fumarate 28 mg-folic acid 800 mcg tablet ( Multivitamins) ferrous sulfate 325 mg (65 mg 325 mg PO BID #60 tabs 03/23/23 04/25/23 04/23/23 Rx iron) tablet ondansetron HCl 4 mg tablet 4 mg PO Q6H PRN nausea and 03/23/23 04/25/23 Unknown Rx vomiting #30 tabs omeprazole 10 mg capsule,delayed mg PO 04/16/23 04/21/23 04/23/23 History release Allergies Allergy/AdvReac Type Severity Reaction Status Date / Time crab Allergy Severe ALGY-Anaphy Verified 04/25/23 06:12 laxis promethazine AdvReac Intermediate ADR-Vomitin Verified 04/25/23 06:11 g PFSH Acute PFSH: Medical History Ganglion cyst of dorsum of right wrist Gestational diabetes Hx of pre-eclampsia in prior , currently No pertinent past medical history Neghx: Htn, DM, Thyroid, DVT/PE PCP: none Vaginal bleeding in Surgical History H/O oral surgery wisdom teeth extraction History of surgery on right wrist Hx laparoscopic cholecystectomy 12/29/22 Status post section Family History Grandmother Breast cancer Paternal grandmother Unknown Family history of thyroid problem Paternal side Denies family history of Colon cancer Ovarian cancer Diabetes Heart disease Hyperlipidemia Hypertension Uterine cancer Stroke Social History Smoking and tobacco status: never smoked Alcohol intake: never Substance/Drug Use: never Current occupation: Works at [employer] Female Reproductive History: : 3 Vitals/I&O/Wt Last Vital Signs Pulse 88 04/25/23 06:25 Resp 15 04/25/23 05:09 BP 117/58 04/25/23 06:25 O2 Del Method Room Air 04/25/23 05:09 Weight last 48 hrs Weight 184 lb Physical Exam Narrative: General: Alert and oriented x3 Eyes: Pupils equal round and reactive to light and accommodation Mouth: Mucous membranes moist, pharynx non-erythematous Cardiac: Regular rate and rhythm without murmurs Lungs: Clear to auscultation bilaterally without wheezes, crackles or rhonchi Abdomen: Soft, non-tender, fundus consistent with gestational age Extremities: Trace edema in the bilateral lower extremities Data 04/25/23 05:12 A&P Assessment and plan (1) Supervision of high risk , unspecified, third trimester: The patient is doing well overall at this time. She has nausea but no other significant symptoms. heart tones are in the mid 140s with moderate variability good accelerations with a category 1 tracing. She is perfecto every 6 minutes but they are not painful for her. The patient's hemoglobin is low at 8.5 today. She has had a significantly difficult time taking iron by mouth as it has been causing nausea and she has had hyperemesis gravidarum. She did get an iron infusion on April 18, 2023. We will certainly watch for complications related to anemia. All questions were answered. The patient is in agreement with proceeding with a repeat low-transverse section. (2) Hyperemesis gravidarum: (3) Anemia affecting : Attestations Medical Necessity Statement*: The patient will be here for greater than 2 midnights due to routine intrapartum and management of labor and delivery. Coding Level of Care Code Acute Code for Chg Fwd Diagnoses Supervision of high risk , unspecified, third trimester O09.93 Hyperemesis gravidarum O21.0 Anemia affecting O99.019
--- NOTE | 2023-04-25 06:38 | ANES.PREANE2 ---
Pre-Anesthetic Assessment Height/Weight: Height 1.68 m Weight 83.461 kg Pulse Resp BP O2 Del Method 88 15 117/58 Room Air 04/25/23 06:25 04/25/23 05:09 04/25/23 06:25 04/25/23 05:09 Preop Diagnosis: Operation Date: 04/25/23 07:00 Proposed Procedures p Section(Not Applicable) - Manuel Patino MD Familial anesthetic complications: None Was Beta Johnathon taken within 24 hours: N/A Was Clonidine taken within 24 hours: N/A Last intake: food/drink Last Intake: 23:30 Social No alcohol and No tobacco Exam alert, oriented x 3, clear to auscultation bilaterally and regular rate & rhythm Airway Submandibular: within normal limits Cervical ROM: within normal limits Mallampati: Class III Dentition: full History/ROS No significant history except as noted and No significant complaints Pulmonary Asthma CV/HEM Anemia None reported Hepatic None reported GI None reported Metabolic None reported Musc/skel None reported Neuropsych None reported Anesthetic Plan ASA status: 2 Anesthesia: Anesthesia Evaluation, Eval. for regional block and General Risk of > 500 ml blood loss (7ml/kg in children): Yes, adequate IV access and fluids planned Medications/Allergies Home Medications Medication Instructions Recorded Confirmed Last Taken Type vit no.95-ferrous 1 tab PO BEDTIME 12/16/22 04/25/23 04/23/23 History fumarate 28 mg-folic acid 800 mcg tablet ( Multivitamins) ferrous sulfate 325 mg (65 mg 325 mg PO BID #60 tabs 03/23/23 04/25/23 04/23/23 Rx iron) tablet ondansetron HCl 4 mg tablet 4 mg PO Q6H PRN nausea and 03/23/23 04/25/23 Unknown Rx vomiting #30 tabs omeprazole 10 mg capsule,delayed mg PO 04/16/23 04/21/23 04/23/23 History release Allergies Allergy/AdvReac Type Severity Reaction Status Date / Time crab Allergy Severe ALGY-Anaphy Verified 04/25/23 06:12 laxis promethazine AdvReac Intermediate ADR-Vomitin Verified 04/25/23 06:11 g PFSH Anesthesia Medical History (Updated 04/25/23 @ 06:43 by Manuel Patino MD) Ganglion cyst of dorsum of right wrist Gestational diabetes Hx of pre-eclampsia in prior , currently No pertinent past medical history Neghx: Htn, DM, Thyroid, DVT/PE PCP: none Vaginal bleeding in Surgical History H/O oral surgery wisdom teeth extraction History of surgery on right wrist Hx laparoscopic cholecystectomy 12/29/22 Status post section Family History Grandmother Breast cancer Paternal grandmother Unknown Family history of thyroid problem Paternal side Denies family history of Colon cancer Ovarian cancer Diabetes Heart disease Hyperlipidemia Hypertension Uterine cancer Stroke Social History Smoking and tobacco status: never smoked Alcohol intake: never Substance/Drug Use: never Current occupation: Works at [employer] Female Reproductive History : 3 Data Anesthesia 04/25/23 05:12 Short CBC 04/25/23 Range/Units 05:12 WBC 10.80 (4.5-13.0) 10^3/uL Hgb 8.50 L (12.4-14.8) g/dL Hct 29.8 L (36-47) % MCV 73.2 L (85-98) fl Plt Count 219 (157-399) 10^3/cmm Neut % (Auto) 64.4 % Neut # (Auto) 6.97 (1.8-8.0) 10^3/uL Cardiac Studies: No Data to Display
[2023-04-25] MEDS: metoclopramide 5 mg/mL SDV 2 mL 10 MG IVP (06:40)
[2023-04-25] MEDS: famotidine 20 mg/2 mL INJ IVP (06:40)
[2023-04-25] MEDS: citric acid-sodium citrate 30 mL UDC PO (06:41)
[2023-04-25 06:46] LABS: Glucose Point of Care 96 mg/dL (70-110)
--- NOTE | 2023-04-25 08:46 | P.OP_ITS ---
Operative Report Date of procedure: April 25, 2023 Pre-op diagnosis: 1. Intrauterine at 39.0 weeks gestation 2. Borderline gestational diabetes that is diet controlled 3. Hyperemesis gravidarum 4. Prior low-transverse section 5. Cholecystectomy during second trimester 6. Anemia Post-op diagnosis: 1. Intrauterine status post repeat low-transverse section at 39.0 weeks gestation 2. Borderline gestational diabetes that is diet controlled 3. Hyperemesis gravidarum 4. Prior low-transverse section 5. Cholecystectomy during second trimester 6. Anemia 7. Delivery of healthy female weighing 7 pounds 6 ounces with Apgars of 9 and 9 Procedure done: Repeat low-transverse section Specimens removed/disposition: Placenta discarded Surgeon: Manuel Patino MD Estimated blood loss (mL): 400 Complications: None Condition: stable Brief History: Geo Monique is a 22 year old @ 39.0 wks by LMP c/with 20 wk US. Preg c/b h/o gDM, h/o severe oligohydramnios, GERD, h/o 1st TM bleeding, h/o LTCS due to breech presentation, anemia, hyperemesis gravidarum, likely gDM - diet controlled, status post cholecystectomy during second trimester. The patient presented for a repeat low-transverse section. Procedure: After informed consent was obtained, the patient was taken to the operating room and the patient was prepped and draped in a normal sterile fashion in the dorsal supine position.? A spinal was placed and adequate anesthesia was obtained.? At 7:27 AM on 04/25/2023 a Pfannenstiel skin incision was made and carried through to the underlying layer of fascia using a scalpel.? The fascial incision was then extended laterally using curved Mayos.? The fascia was then grasped with Misty clamps and the underlying rectus muscles were dissected off taking care to avoid injury to the underlying tissues.? The peritoneum was entered bluntly with one digit.? It was then bluntly.? The bladder blade was placed and the vesicouterine peritoneum was well below the lower uterine segment of the ut erus.? The uterine incision was made in the lower uterine segment in a transverse fashion with the scalpel at 7:37 AM.? The amniotic membrane was entered bluntly and a small amount of clear fluid was noted.? Uterine pressure was placed and the infant's head delivered without complication at 7:39 AM on 04/25/2023.? There was a nuchal cord that was reduced prior to delivery of the infant's body.? The mouth and nose were suctioned.? The rest of the infant delivered without difficulty.? The infant took a breath immediately upon delivery.? The cord was clamped and cut and the was handed to the awaiting pediatric nurses.? The placenta was then manually expressed.? The uterus was exteriorized from the abdomen.? A wet lap was used to clear the uterus of clots and debris.? The bladder blade was reinserted and the uterine incision was closed using 0 chromic in a running locking fashion.? The uterus was noted to be firm.? A second layer of the same suture was used in the same manner.? Excellent hemostasis was obtained. Next the posterior cul-de-sac was inspected and was cleared of any blood. The gutters were cleared of any further clots and debris and the uterine incision was again inspected and hemostasis was noted.? The subfascial tissue was inspected for hemostasis and the peritoneum was re-approximated using 2-0 plain in a running fashion.? The fascia was then re-approximated using 0 Vicryl in a running fashion.? The subcutaneous tissue was inspected for hemostasis.? Ahsan's fascia was then re-approximated using 3-0 plain in a running fashion.? Good hemostasis was noted.? The subcutaneous tissue was then re-approximated using a subcuticular stitch.? The patient tolerated the procedure well and was recovered in stable condition.? Estimated blood loss was 400 mL. Urine in the Edwards catheter was clear. The patient was taken to recovery in good condition.
--- NOTE | 2023-04-25 09:45 | ANE.PACU2 ---
Inpatient post-anesthesia follow up: Airway intact: Yes Vital signs: Temperature Pulse Rate 92 Respiratory Rate 15 Blood Pressure 109/61 Pulse Oximetry 100 Oxygen Delivery Me thod Room Air Oxygen Flow Rate Fraction of Inspir ed Oxygen Hydration adequate: Yes Nausea and vomiting: No Pain level: 1 Mental status: Baseline
[2023-04-25] MEDS: dextrose 5%-lactated ringers 1,000 ML 125 ML IV ×2 (10:23→17:46)
[2023-04-25] MEDS: oxyCODONE-APAP 5-325 mg Tablet PO (12:04)
[2023-04-25] MEDS: ketorolac 30 mg/mL INJ IVP ×2 (15:02→21:54)
[2023-04-25] MEDS: ferrous sulfate EC 325 mg Tablet PO (17:47)
[2023-04-25] MEDS: docusate sodium 100 mg Capsule PO (17:48)
[2023-04-25 21:31] LABS: Mean Corpuscular HGB Conc 28.8 g/dL (30-55); Mean Corpuscular Hemoglobin 21.1 pg (27-33); Mean Platelet Volume 11.9 fL (7.4-10.4); Platelet Count 144 10^3/cmm (157-399); Red Blood Count 3.56 10^6/uL (3.85-5.65); Red Cell Distribution Width 18.6 % (12.1-15.1); White Blood Count 10.72 10^3/uL (4.5-13.0)
[2023-04-26] VITALS (7 sets, daily range): BP systolic 108–118; BP diastolic 51–74; PULSE 89–95; RESP 15–18; TEMP 36.4–36.6; O2SAT 98–99
[2023-04-26] MEDS: ketorolac 30 mg/mL INJ IVP (04:06)
[2023-04-26] MEDS: oxyCODONE-APAP 5-325 mg Tablet PO ×3 (08:12→23:00)
[2023-04-26] MEDS: prenatal vitamin Capsule 1 CAP PO (08:12)
[2023-04-26] MEDS: docusate sodium 100 mg Capsule PO ×2 (08:12→18:49)
[2023-04-26] MEDS: ferrous sulfate EC 325 mg Tablet PO ×2 (08:12→18:49)
[2023-04-26] MEDS: ibuprofen 800 mg tablet PO (22:36)
[2023-04-27 06:00] VITALS: BP 123/58; PULSE 100; TEMP 37
--- NOTE | 2023-04-27 08:17 | PM.PN ---
Subjective Subjective: Date of service: 04/26/2023 The patient is doing well today. She is ambulating, voiding, passing gas and tolerating food by mouth. She is having pain that is controlled by ibuprofen and oxycodone. She is not having significant dizziness at this time. Vitals/I&O/Wt Last Vital Signs Temp 98.6 F 04/27/23 06:00 Pulse 100 04/27/23 06:00 Resp 16 04/26/23 23:00 BP 123/58 04/27/23 06:00 Pulse Ox 98 04/26/23 22:00 O2 Del Method Room Air 04/26/23 22:00 04/26/23 04/27/23 04/27/23 22:59 06:59 14:59 Intake Total 900 / 900 Balance 900 / 900 Physical Exam Narrative: General: Alert and oriented x3 Cardiac: Regular rate and rhythm without murmurs Lungs: Clear to auscultation bilaterally without wheezes, crackles or rhonchi Abdomen: Soft, mild tenderness over uterus. The uterus is firm and 2 cm below the umbilicus. Incision is clean and dry with minimal bloody discharge from the right lateral edge. Extremities: Trace edema in the bilateral lower extremities Urinary Catheter Management: Edwards: Cath Placed During This Visit: yes, but has since been removed by the nurse Reason for Continuing Indwelling Catheter: Decision to DC Catheter Urinary Catheter Date of Insertion: 04/25/23 Urinary Catheter Time of Insertion: 07:18 Date Urinary Catheter Removed: 04/26/23 Time Urinary Catheter Discontinued: 01:44 Data 04/25/23 21:05 A&P Assessment and plan (1) Status post section: The patient is doing well status post section yesterday. We will continue with routine post care. We did discuss the risks of low hemoglobin and precautions to take. She is taking her iron as prescribed. I discussed the routine discharge instructions with the patient. All questions were answered. Attestations Medical Necessity Statement*: The patient will be here for greater than 2 midnights due to routine intrapartum and management after section. Coding Level of Care Code Acute Code for Chg Fwd Diagnoses Status post section Z98.891
--- NOTE | 2023-04-27 08:21 | P.DS_ITS ---
Discharge Providers Date of Admission: 04/25/23 04:58 Date of Discharge: April 27, 2023 Attending Provider at Admission: Manuel Patino MD Attending Provider at Discharge: Manuel Patino MD Primary Care Provider: Manuel Patino MD Diagnoses at Discharge Discharge Diagnosis (1) Status post section: Status: Acute Other Information Additional DC diagnoses/information: 1.? Intrauterine status post repeat low-transverse section at 39.0 weeks gestation 2.? Borderline gestational diabetes that is diet controlled 3.? Hyperemesis gravidarum 4.? Prior low-transverse section 5.? Cholecystectomy during second trimester 6.? Anemia 7.? Delivery of healthy female weighing 7 pounds 6 ounces with Apgars of 9 and 9 Reason for Visit Reason for Visit: csection Brief History: Geo Monique is a 22 year old G3 now P2 status post repeat low-transverse section @ 39.0 wks by LMP c/with 20 wk US. Preg c/b h/o gDM, h/o severe oligohydramnios, GERD, h/o 1st TM bleeding, h/o LTCS due to breech presentation, anemia, hyperemesis gravidarum, likely gDM - diet controlled, status post cholecystectomy during second trimester. The patient presented for a scheduled repeat low-transverse section. Hospital Course Hospital Course The patient had a repeat low-transverse section without complication. Her hemoglobin started at 8.5 initially and dropped down to 7.5 after surgery. The patient is feeling well and is not having any significant dizzine ss. She is ambulating, voiding, passing gas and tolerating food by mouth. She has had some minimal drainage from the right lateral edge of her incision site with some pain from this area. No signs of infection present at this time. We will follow-up next week to be sure that this is healing appropriately. Precautions discussed. Routine discharge instructions and care for her incision site discussed in detail. The patient is doing well at this time and may be discharged home. The patient is in agreement with the current plan of care. Physical Exam Narrative: General: Alert and oriented x3 Cardiac: Regular rate and rhythm without murmurs Lungs: Clear to auscultation bilaterally without wheezes, crackles or rhonchi Abdomen: Soft, mild tenderness over uterus. The uterus is firm and 2 cm below the umbilicus. Incision is clean and dry with minimal bloody discharge from the right lateral edge. Extremities: Trace edema in the bilateral lower extremities Urinary Catheter Management: Edwards: Cath Placed During This Visit: yes, but has since been removed by the nurse Reason for Continuing Indwelling Catheter: Decision to DC Catheter Urinary Catheter Date of Insertion: 04/25/23 Urinary Catheter Time of Insertion: 07:18 Date Urinary Catheter Removed: 04/26/23 Time Urinary Catheter Discontinued: 01:44 Discharge Data Studies Completed and Pending Laboratory Results WBC 10.72 10^3/uL (4.5-13.0) 04/25/23 21:05 RBC 3.56 10^6/uL (3.85-5.65) L 04/25/23 21:05 Hgb 7.50 g/dL (12.4-14.8) L 04/25/23 21:05 Hct 26.0 % (36-47) L 04/25/23 21:05 MCV 73.0 fl (85-98) L 04/25/23 21:05 MCH 21.1 pg (27-33) L 04/25/23 21:05 MCHC 28.8 g/dL (30-55) L 04/25/23 21:05 RDW 18.6 % (12.1-15.1) H 04/25/23 21:05 Plt Count 144 10^3/cmm (157-399) L D 04/25/23 21:05 MPV 11.9 fL (7.4-10.4) H 04/25/23 21:05 Neut % (Auto) 64.4 % 04/25/23 05:12 Lymph % (Auto) 29.4 % 04/25/23 05:12 [place] % (Auto) 5.0 % 04/25/23 05:12 Eos % (Auto) 0.4 % 04/25/23 05:12 Baso % (Auto) 0.4 % 04/25/23 05:12 Neut # (Auto) 6.97 10^3/uL (1.8-8.0) 04/25/23 05:12 Lymph # (Auto) 3.2 10^3/uL (1.5-6.5) 04/25/23 05:12 [place] # (Auto) 0.5 10^3/uL (0.2-0.9) 04/25/23 05:12 Eos # (Auto) 0.0 10^3/uL (0.0-0.8) 04/25/23 05:12 Baso # (Auto) 0.0 10^3/uL (0.0-0.1) 04/25/23 05:12 Nucleated RBC % (auto) 0 % 04/25/23 05:12 Nucleated RBCs # 0.0 /100WBC 04/25/23 05:12 POC Glucose 96 mg/dL (70-110) 04/25/23 06:42 Vitals Last Vital Signs Temp 98.6 F 04/27/23 06:00 Pulse 100 04/27/23 06:00 Resp 16 04/26/23 23:00 BP 123/58 04/27/23 06:00 Pulse Ox 98 04/26/23 22:00 O2 Del Method Room Air 04/26/23 22:00 Discharge Plan Discharge Patient Disposition: Home Condition: Good Prescriptions: New oxycodone-acetaminophen 5-325 mg Tablet 1 tab PO Q6H PRN (Reason: Moderate To Severe Pain) Qty: 30 0RF ibuprofen 800 mg Tablet 800 mg PO TID Qty: 60 0RF docusate sodium 100 mg Capsule 100 mg PO BID PRN (Reason: constipation) Qty: 14 0RF Continued ferrous sulfate 325 mg (65 mg iron) tablet 325 mg PO BID Qty: 60 3RF ondansetron HCl 4 mg tablet 4 mg PO Q6H PRN (Reason: nausea and vomiting) Qty: 30 1RF PNV cmb#95-ferrous fumarate-FA [ Multivitamins] 28 mg iron- 800 mcg Tablet 1 tab PO BEDTIME Discontinued omeprazole 10 mg Capsule,Delayed Release(Dr/Ec) PO Discharge Orders: Discharge Order (Routine); Ordered 04/27/23 Ordered By: Manuel Patino Referrals: Manuel Patino MD [Primary Care Provider] - 7-10 days Discharge Diet: Regular Discharge Activity: Limit activity as instructed Patient Instructions: Depression (DC), Bleeding (DC), Preeclampsia and Eclampsia After Delivery (GEN), (DC), OB Discharge Report, OB Food/Drug Interaction Guide, Opioid Safety, OB [facility] - [facility] Activity Restrictions/Additional Instructions: If you have any concern for infection in your incision site, please seek immediate medical attention. No lifting anything heavier than your infant in the car seat for the first 3 weeks, then gradually increase. No driving for 2 weeks. Nothing per vagina for 6 weeks. Follow-up with myself next week. Discharge Attestations Time Spent in Discharge Care*: less than 30 min Quality Metrics Clinical Quality Measures [ No reported AMI, CVA or VTE this stay] Coding Level of Care Code Acute Code for Chg Fwd Diagnoses Status post section Z98.891
[2023-04-27] MEDS: ferrous sulfate EC 325 mg Tablet PO (08:37)
[2023-04-27] MEDS: prenatal vitamin Capsule 1 CAP PO (08:37)
[2023-04-27] MEDS: ibuprofen 800 mg tablet PO (08:38)
[2023-04-27 10:32] VITALS: RESP 17
[2023-04-27] MEDS: oxyCODONE-APAP 5-325 mg Tablet PO (10:32)
[2023-04-27 11:10] VITALS: BP 106/80; PULSE 100; RESP 17
== END 2023-04-27 11:10 | disposition home or self-care (01) | DRG 788 ==
PROVIDERS: Admitting Provider Family Medicine; PCP Family Medicine; Visit Provider Family Medicine
PROC: 10D00Z1 Extraction of Products of Conception, Low, Open Approach (ICD-10-PCS; CPT 59514; principal; 2023-04-25 07:00)
DX: O34.211 Maternal care for low transverse scar from previous cesarean delivery (principal); N85.8 Other specified noninflammatory disorders of uterus; O99.02 Anemia complicating childbirth; D64.9 Anemia, unspecified; O69.81X0 Labor and delivery complicated by cord around neck, without compression, not applicable or unspecified; Z3A.39 39 weeks gestation of pregnancy; Z37.0 Single live birth; O21.0 Mild hyperemesis gravidarum
CPT/HCPCS: 36415; 36416; 51702; 59025; 59409; 82962; 85025; 85027; 96376; 98960; J0690; J1885; J2274; J2371; J2405; J2765; J3010; J3490; J7030; J7120; J7121

== ENCOUNTER 2023-09-28 09:30 | Emergency (ER) | payer MEDICAID, SELFPAY ==
[2023-09-28 09:44] VITALS: BP 96/58; PULSE 133; RESP 16; TEMP 37.2; O2SAT 96; BMI 26.6
--- NOTE | 2023-09-28 09:59 | ECG_ITS ---
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 Measurements Intervals [place] Rate: 133 P: 53 CO: 151 QRS: 3 QRSD: 79 T: 62 QT: 332 QTc: 496 Interpretive Statements SINUS TACHYCARDIA NONSPECIFIC ST & T-WAVE ABNORMALITY Compared to ECG 11/21/2021 21:16:19 T-wave abnormality now present Short CO interval no longer present Electronically Signed On 09-28-2023 11:38:15 [employer] by Leon Vo M.D. [email or web address]
--- NOTE | 2023-09-28 09:59 | XR_ITS ---
WS: [id number] XR chest 1V portable [id number] REASON FOR EXAM: dyspnea/cough FINDINGS: Chest is unchanged compared to 11/22/2021. The heart and the mediastinum are within normal limits. Calcified granulomas disease in both hemithoraces. No acute or subacute pulmonary parenchymal or pleural abnormality. No significant abnormality of the bony thorax. IMPRESSION: No acute chest abnormality.
--- NOTE | 2023-09-28 09:59 | CT_ITS ---
WS: [id number] CT ABDOMEN PELVIS TECHNIQUE: Noncontrast CT of the abdomen and pelvis with coronal and sagittal reformatted images. CLINICAL INFORMATION: Abdominal pain COMPARISON: 2019 DLP: 568.[address] scans at [facility] use at least one of these dose optimization techniques: automated e xposure control; mA and/or kV adjustment per patient size (includes targeted exams where dose is matc hed to clinical indication); or iterative reconstruction. FINDINGS: Normal appendix. Noncontrast liver is normal. Cholecystectomy clips. Enlarged RIGHT hepatic lobe. Nor mal noncontrast spleen. Lung bases are well aerated. Adrenal glands are normal. Noncontrast pancreas is normal. Small esophageal hiatal hernia. No hydronephrosis in either kidney. No obstructing renal o r ureteral calculi. Tiny fat-containing umbilical hernia. Normal caliber abdominal aorta. IMPRESSION: No acute abdominal or pelvic findings.
--- NOTE | 2023-09-28 10:00 | ED_ITS ---
HPI - General Adult 2 General: Chief complaint: General Medical Stated complaint: body pains Time Seen by Provider: 09/28/23 09:58 Source: patient Mode of arrival: ambulatory History of Present Illness: 22-year-old female presents emergency ro om vomiting right flank pain with nausea began yesterday worsened this morning. Her heart rate was rapid and she just did not feel well she noticed some discolored urine she did take some Tylenol for symptoms with no relief. She has a history of previous x 2 and cholecystectomy. She has been very nauseous but no vomiting. Nurses note had written that she had right flank pain however when I seen the patient she is complaining more of right lower quadrant pain on exam however she was diffusely tender. Onset (ago): day(s) (1) Location: abdomen Radiation: non-radiation Severity: moderate Pain Consistency: constant Relieving factors: none Exacerbating factors: none Associated symptoms: Reports malaise and nausea; Deny chest pain, confusion, cough, diaphoresis, decreased appetite, dyspnea, fevers/chills, headache(s), rash, palpitations, seizures, short of breath, syncope, vomiting or weakness Treatments prior to arrival: none Review of Systems 2 Const: Reports: fatigue and malaise; Denies: fever(s), chills or diaphoresis Card: Denies: chest pain, palpitations or syncope Resp: Denies: dyspnea GI: Reports: abdominal pain and nausea; Denies: vomiting : Reports: flank pain, dysuria and urinary frequency; Denies: urinary urgency Musc: Denies: neck pain or back pain Skin/Breast: Denies: rash Neuro: Denies: headache(s) or confusion PFSH ED 2 PFSH: Medical History Hx of pre-eclampsia in prior , currently Ganglion cyst of dorsum of right wrist Gestational diabetes Vaginal bleeding in No pertinent past medical history Neghx: Htn, DM, Thyroid, DVT/PE PCP: none Surgical History History of surgery on right wrist Hx laparoscopic cholecystectomy 12/29/22 Status post section x 2 H/O oral surgery wisdom teeth extraction Family History Grandmother Breast cancer Paternal grandmother Unknown Family history of thyroid problem Paternal side Denies family history of Colon cancer Ovarian cancer Diabetes Heart disease Hyperlipidemia Hypertension Uterine cancer Stroke Social History Smoking and tobacco/nicotine status: never used tobacco/nicotine Alcohol intake: never Substance/Drug Use: never Current occupation: Works at [employer] History: Date of last menstrual period: 08/30/23 Physical Exam 2 Const: COMMON NORMALS: no acute distress GENERAL APPEARANCE: cooperative and comfortable ORIENTATION/CONSCIOUSNESS: Yes awake, Yes oriented to person, Yes oriented to place and Yes oriented to time HENMT: COMMON NORMALS: normocephalic, atraumatic and hearing grossly normal bilaterally HEAD & SCALP: normocephalic and atraumatic Resp: COMMON NORMALS: normal respiratory effort, No retractions, No use of accessory muscles and clear to auscultation bilaterally AUSCULTATION: clear to auscultation bilaterally Cardio: COMMON NORMALS: regular rate, regular rhythm and No murmurs present (Cardio) RATE: regular rate RHYTHM: regular rhythm GI: COMMON NORMALS: No hepatosplenomegaly present AUSCULTATION: Yes normoactive bowel sounds PALPATION: Yes Tenderness to palpation present (GI) Details: RLQ, No Guarding due to palpation present (GI) and Yes No hepatosplenomegaly present Extremity: COMMON NORMALS: normal to inspection, capillary refill normal, no clubbing, cyanosis or edema, no calf tenderness and no pedal edema Neuro: SENSORIUM/ORIENTATION: Yes oriented to person, Yes oriented to place and Yes oriented to time Skin: COMMON NORMALS: no rashes or lesions noted GENERAL SKIN EXAM: no rashes or lesions noted Course 2 Vital Signs: Vital signs: Vital Signs Temperature 99.0 F 09/28/23 09:44 Pulse Rate 91 09/28/23 12:00 Respiratory Rate 16 09/28/23 09:44 Blood Pressure 115/68 09/28/23 12:00 Pulse Oximetry 100 09/28/23 12:00 Oxygen Delivery Me thod Room Air 09/28/23 12:00 [facility] - General Adult Medical Decision Making Labs and imaging reviewed. Symptoms resolved with IV fluids. She states she generally has a little bit of a fast heart rate. It is normalized now she does have a low-grade fever. Suspect she may have underlying viral infection. Observe for now push IV fluids follow-up with primary care if continues to have rapid heart rate Medical Records I reviewed the patient's medical records. Lab Data I reviewed the patient's lab results. 09/28/23 10:11 09/28/23 10:11 Laboratory Results WBC 10.35 10^3/uL (4.5-13.0) 09/28/23 10:11 RBC 4.62 10^6/uL (3.85-5.65) 09/28/23 10:11 Hgb 12.00 g/dL (12.4-14.8) L 09/28/23 10:11 Hct 38.2 % (36-47) 09/28/23 10:11 MCV 82.7 fl (85-98) L 09/28/23 10:11 MCH 26.0 pg (27-33) L 09/28/23 10:11 MCHC 31.4 g/dL (30-55) 09/28/23 10:11 RDW 15.1 % (12.1-15.1) 09/28/23 10:11 Plt Count 192 10^3/cmm (157-399) 09/28/23 10:11 MPV 11.5 fL (7.4-10.4) H 09/28/23 10:11 Neut % (Auto) 76.7 % 09/28/23 10:11 Lymph % (Auto) 15.1 % 09/28/23 10:11 [place] % (Auto) 7.1 % 09/28/23 10:11 Eos % (Auto) 0.3 % 09/28/23 10:11 Baso % (Auto) 0.5 % 09/28/23 10:11 Neut # (Auto) 7.95 10^3/uL (1.8-8.0) 09/28/23 10:11 Lymph # (Auto) 1.6 10^3/uL (1.5-6.5) 09/28/23 10:11 [place] # (Auto) 0.7 10^3/uL (0.2-0.9) 09/28/23 10:11 Eos # (Auto) 0.0 10^3/uL (0.0-0.8) 09/28/23 10:11 Baso # (Auto) 0.1 10^3/uL (0.0-0.1) 09/28/23 10:11 Nucleated RBC % (auto) 0 % 09/28/23 10:11 Nucleated RBCs # 0.0 /100WBC 09/28/23 10:11 Sodium 135 mmol/L (136-145) L 09/28/23 10:11 Potassium 3.2 mmol/L (3.5-5.1) L 09/28/23 10:11 Chloride 102 mmol/L (98-107) 09/28/23 10:11 Carbon Dioxide 20 mmol/L (22-29) L 09/28/23 10:11 Anion Gap 16.2 (5-19) 09/28/23 10:11 BUN 10 mg/dL (6-20) 09/28/23 10:11 Creatinine 0.6 mg/dL (0.5-0.9) 09/28/23 10:11 GFR Calculation 127.5 mL/min (90-130) 09/28/23 10:11 Glucose 137 mg/dL (65-115) H 09/28/23 10:11 Calculated Osmolality 281 mOsm/kg (285-295) L 09/28/23 10:11 Lactic Acid 0.8 mmol/L (0.5-2.2) 09/28/23 10:11 Calcium 8.9 mg/dL (8.5-10.5) 09/28/23 10:11 Total Bilirubin 0.4 mg/dL (0.15-1.2) 09/28/23 10:11 AST 8 U/L (0-32) 09/28/23 10:11 ALT 12 U/L (0-33) 09/28/23 10:11 Alkaline Phosphatase 102 U/L (35-105) 09/28/23 10:11 Total Protein 7.7 g/dL (6.6-8.7) 09/28/23 10:11 Albumin 4.3 g/dL (3.5-5.2) 09/28/23 10:11 Globulin 3.4 g/dL (1.3-4.6) 09/28/23 10:11 HCG, Qual Negative (Negative) 09/28/23 10:11 Urine Color Light yellow (Yellow) 09/28/23 09:59 Urine Appearance Clear (CLEAR) 09/28/23 09:59 Urine pH 6 (5-7) 09/28/23 09:59 Ur Specific [place] 1.010 (1.005-1.030) 09/28/23 09:59 Urine Protein Neg (Negative) 09/28/23 09:59 Urine Glucose (UA) Norm (Normal) 09/28/23 09:59 Urine Ketones Negative (Negative) 09/28/23 09:59 Urine Blood Neg (Negative) 09/28/23 09:59 Urine Nitrate Negative (Negative) 09/28/23 09:59 Urine Bilirubin Neg (Negative) 09/28/23 09:59 Urine Urobilinogen Norm mg/dL (Negative) 09/28/23 09:59 Ur Leukocyte Esterase Negative (Negative) 09/28/23 09:59 All radiology interpretation(s) finalized by discharge Discharge Plan Discharge Patient Disposition: Home Condition: Stable Prescriptions: New ondansetron HCl 4 mg tablet 4 mg PO Q6H PRN (Reason: nausea and vomiting) Qty: 20 0RF No Action PNV cmb#95-ferrous fumarate-FA [ Multivitamins] 28 mg iron- 800 mcg Tablet 1 tab PO BEDTIME Discharge Orders: Discharge ED (Routine); Ordered 09/28/23 Ordered By: Urbano Wiley Referrals: Manuel Patino MD [Primary Care Provider] - Discharge Diet: Usual diet Discharge Activity: Resume usual activity Patient Instructions: Opioid Safety, Pain Management Activity Restrictions/Additional Instructions: Thank you for choosing [facility] for your healthcare needs today. Please realize this is an emergency room and that we are providing you with a medical screening exam and this may not be complete and all inclusive of all the testing and or work up that you may need to determine your ailment or severity of your illness. It is very important that you follow up as instructed or that you return to the Emergency Department should you have concerns or if your condition changes or worsens in any way. You are seen for rapid heart rate which resolved with IV fluids. Push IV fluids and recheck if at any further symptoms. You can use ondansetron as needed if you have any nausea or vomiting. Coding Level of Care Code ED Underpresser Hand for Ivett Fernandes
[2023-09-28 10:14] LABS: Add Urine Microscopic? NO; Charge for UA Resulting for Rev
[2023-09-28 10:19] LABS: Bilirubin Urine Neg (Negative); Blood Urine Neg (Negative); Glucose Urine UA Norm (Normal); Ketones Urine Negative (Negative); Leukocyte Esterase Urine Negative (Negative); Nitrate Urine Negative (Negative); Protein Urine Neg (Negative); Urine Appearance Clear (CLEAR); Urine Color Light yellow (Yellow); Urobilinogen Urine Norm (Negative); pH Urine 6 (5-7)
[2023-09-28 10:30] LABS: Basophils # 0.1 10^3/uL (0.0-0.1); Basophils % 0.5 %; Eosinophils % 0.3 %; Hematocrit 38.2 % (36-47); Lymphocytes # 1.6 10^3/uL (1.5-6.5); Lymphocytes % 15.1 %; Mean Corpuscular HGB Conc 31.4 g/dL (30-55); Mean Corpuscular Volume 82.7 fl (85-98); Mean Platelet Volume 11.5 fL (7.4-10.4); Monocytes # 0.7 10^3/uL (0.2-0.9); Monocytes % 7.1 %; Neutrophils # 7.95 10^3/uL (1.8-8.0); Neutrophils % 76.7 %; Nucleated Red Blood Cells % 0 %; Platelet Count 192 10^3/cmm (157-399); Red Blood Count 4.62 10^6/uL (3.85-5.65); Red Cell Distribution Width 15.1 % (12.1-15.1); White Blood Count 10.35 10^3/uL (4.5-13.0)
[2023-09-28 10:44] LABS: Lactic Sepsis W/Reflex 0.8 mmol/L (0.5-2.2)
[2023-09-28 10:45] LABS: Alanine Aminotransferase 12 U/L (0-33); Albumin Level 4.3 g/dL (3.5-5.2); Alkaline Phosphatase 102 U/L (35-105); Anion Gap 16.2 (5-19); Aspartate Amino Transferase 8 U/L (0-32); Blood Urea Nitrogen 10 mg/dL (6-20); Calcium 8.9 mg/dL (8.5-10.5); Carbon Dioxide 20 mmol/L (22-29); Chloride 102 mmol/L (98-107); Creatinine Clr Calc Pharmacy 154.6934; Globulin 3.4 g/dL (1.3-4.6); Glomerular Filtration Rate 127.5 mL/min (90-130); Glucose 137 mg/dL (65-115); Osmolality Calculated 281 mOsm/kg (285-295); Potassium 3.2 mmol/L (3.5-5.1); Sodium 135 mmol/L (136-145); Total Bilirubin 0.4 mg/dL (0.15-1.2); Total Protein 7.7 g/dL (6.6-8.7)
[2023-09-28 10:46] LABS: HCG, Serum Qual Negative (Negative)
[2023-09-28] MEDS: sodium chloride 0.9% 1,000 ML 999 ML IV ×2 (10:46→11:48)
[2023-09-28 11:00] VITALS: BP 102/65; PULSE 123; O2SAT 97
[2023-09-28 11:30] VITALS: BP 112/69; PULSE 107; O2SAT 98
[2023-09-28 12:00] VITALS: BP 115/68; PULSE 91; O2SAT 100
== END 2023-09-28 13:06 | disposition home or self-care (01) ==
PROVIDERS: Emergency Provider Family Medicine; PCP Family Medicine
DX: R10.31 Right lower quadrant pain (principal); R11.0 Nausea; R53.81 Other malaise
CPT/HCPCS: 36415; 71045; 74176; 80053; 81003; 83605; 84703; 85025; 87040; 93005; 96360; 96361; 99285; J7030

== ENCOUNTER 2023-11-19 01:18 | Emergency (ER) | payer MEDICAID, SELFPAY ==
[2023-11-19 01:35] VITALS: BP 136/104; PULSE 118; RESP 18; TEMP 36.6; O2SAT 99; BMI 26.6
--- NOTE | 2023-11-19 01:57 | W.ED.DENTAL ---
HPI - Dental/Oral General: Chief complaint: Dental/Oral Stated complaint: Tooth Ache Time Seen by Provider: 11/19/23 01:39 History of Present Illness: 23-year-old female with dental pain, and gingival swelling on and off for months she says. She has had antibiotics for this tooth before. She has an appointment with her dentist on 11/28. She presents with increased pain, swelling to the area. No fever. No vomiting. No shortness of breath. Associated symptoms: Denies ear or mastoid pain or fever(s) Review of Systems Const: Denies: fever(s) Eyes: Denies: change in vision ENMT: Reports: dental pain and sinus pain; Denies: throat pain, swelling of lips/tongue, bleeding gums, ear or mastoid pain or epistaxis Card: Denies: chest pain Resp: Denies: dyspnea GI: Denies: abdominal pain, nausea or vomiting [facility] ED PFSH: Medical History Hx of pre-eclampsia in prior , currently Ganglion cyst of dorsum of right wrist Gestational diabetes Vaginal bleeding in No pertinent past medical history Neghx: Htn, DM, Thyroid, DVT/PE PCP: none Surgical History History of surgery on right wrist Hx laparoscopic cholecystectomy 12/29/22 Status post section x 2 H/O oral surgery wisdom teeth extraction Family History Grandmother Breast cancer Paternal grandmother Unknown Family history of thyroid problem Paternal side Denies family history of Colon cancer Ovarian cancer Diabetes Heart disease Hyperlipidemia Hypertension Uterine cancer Stroke Social History Smoking and tobacco/nicotine status: never used tobacco/nicotine Alcohol intake: never Substance/Drug Use: never Current occupation: Works at [employer] Physical Exam Const: COMMON NORMALS: no acute distress GENERAL APPEARANCE: not ill appearing HENMT: COMMON NORMALS: normocephalic, atraumatic and Normal external nose present HEAD & SCALP: normocephalic and atraumatic FACE & SINUS: normal facial exam and face symmetric; no sinus tenderness NOSE: Normal external nose present and Normal nares present MOUTH: lip normal and tongue normal TEETH & GINGIVA: Yes abnormal tooth and associated gingiva (Right upper molar dental abscess present. No drainage.) Eye: COMMON NORMALS: Equal, round and reactive pupils present and normal visual carter by confrontation PUPIL: Yes Equal, round and reactive pupils present Neck/C-Spine: COMMON NORMALS: full ROM GENERAL: No anterior neck swelling and Yes other (No swelling) Chest: CHEST: Yes Symmetrical chest wall rise Resp: COMMON NORMALS: normal respiratory effort, No use of accessory muscles and clear to auscultation bilaterally AUSCULTATION: clear to auscultation bilaterally Cardio: COMMON NORMALS: regular rate and regular rhythm RATE: regular rate RHYTHM: regular rhythm Course Vital Signs: Vital signs: Vital Signs Temperature 98 F 11/19/23 01:35 Pulse Rate 118 H 11/19/23 01:35 Respiratory Rate 18 11/19/23 01:35 Blood Pressure 136/104 11/19/23 01:35 Pulse Oximetry 99 11/19/23 01:35 MDM - Dental/Oral Medical Decision Making Small gingival abscess right upper. No fever or other signs of sepsis. Antibiotics, pain medication, dental follow-up. Return for worsening symptoms. No radiology studies performed this visit Discharge Plan Discharge Patient Disposition: Home Clinical Impression: Dental abscess Condition: Stable Prescriptions: New penicillin V potassium 500 mg tablet 500 mg PO Q6H 10 Days Qty: 40 0RF hydrocodone-acetaminophen 5-325 mg tablet 1 tab PO Q8H PRN (Reason: pain) Qty: 7 0RF ketorolac 10 mg tablet 10 mg PO TID PRN (Reason: pain) Qty: 10 0RF No Action ondansetron HCl 4 mg tablet 4 mg PO Q6H PRN (Reason: nausea and vomiting) Qty: 20 0RF PNV cmb#95-ferrous fumarate-FA [ Multivitamins] 28 mg iron- 800 mcg Tablet 1 tab PO BEDTIME Discharge Orders: Discharge ED (Routine); Ordered 11/19/23 Ordered By: All Amanda Referrals: Yue Bruno DO [Primary Care Provider] - Patient Instructions: Dental Abscess (ED), Opioid Safety, Pain Management Activity Restrictions/Additional Instructions: Alternate pain medications prescribed. Antibiotics as directed. Follow-up with your dentist as scheduled. Return for problems. Coding Level of Care Code ED Learning Facilitator for Chg Fwd
[2023-11-19] MEDS: oxyCODONE-APAP 5-325 mg Tablet 2 TAB PO (02:11)
[2023-11-19] MEDS: penicillin v potassium 250 mg Tablet 1000 MG PO (02:11)
[2023-11-19] MEDS: ketorolac 10 mg Tablet PO (02:11)
[2023-11-19 02:18] VITALS: BP 136/104; PULSE 118; RESP 18; TEMP 36.6; O2SAT 99
== END 2023-11-19 02:24 | disposition home or self-care (01) ==
PROVIDERS: Emergency Provider Emergency Medicine; PCP Family Medicine
DX: K04.7 Periapical abscess without sinus (principal)
CPT/HCPCS: 99283

== ENCOUNTER 2023-12-12 10:55 | Emergency (ER) | payer MEDICAID, SELFPAY ==
--- NOTE | 2023-12-12 11:05 | XRR_ITS ---
PROCEDURE INFORMATION: Exam: XR Left Shoulder Exam date and time: 12/12/2023 11:18 AM Age: 23 years old Clinical indication: Injury or trauma; Fall; Blunt trauma (contusions or hematomas); Shoulder; Left; Additional info: Fall/injury TECHNIQUE: Imaging protocol: Radiologic exam of the left shoulder. Views: 2 or more views. COMPARISON: CR XR chest 1V portable [id number] 09/28/2023 10:32 AM FINDINGS: Bones/joints: Normal. No acute osseous, joint, or soft tissue abnormality. Soft tissues: Normal. XR/XR shoulder LT min 2V* [id number] IMPRESSION: No acute findings.
[2023-12-12 11:20] VITALS: BP 115/76; PULSE 85; RESP 18; TEMP 36.7; O2SAT 98; BMI 27.1
--- NOTE | 2023-12-12 11:32 | W.ED.FALL ---
HPI - Fall General: Chief Complaint: Extremity Injury, Upper Stated Complaint: fall, left should pain Time Seen by Provider: 12/12/23 11:05 Source: patient Mode of arrival: ambulatory Limitations: no limitations History of Present Illness: Patient is a 23-year-old female who presents to the ED today for evaluation after a fall while on stairs. She believes she fell on her outstretched hand to try to catch herself. She states she struck her right back on a portion of the wall. Her main complaint is left shoulder discomfort. States her left wrist is slightly bothering her as well. Denies striking her head or LOC. No neck pain. She is ambulatory without difficulty or assistance here. MD complaint: fall Onset (ago): hour(s) Fall from: down stairs (#) Fall witnessed: no Place fall occurred: home Loss of consciousness: None Prolonged down time: no Symptoms prior to fall: none Context: tripped/slipped Location of injury - extremities: Left: shoulder Severity: mild Associated symptoms-after fall: Denies abdominal pain, chest pain, headache(s), hematuria, lightheadedness or neck pain Review of Systems Eyes: Denies: change in vision, blurry vision, photophobia, eye discharge, floaters or seeing flashes ENMT: Denies: throat pain, odynophagia, ear or mastoid pain, ear discharge, nasal discharge, epistaxis or sinus pain Card: Denies: chest pain, palpitations, lightheadedness, syncope or pre-syncope Resp: Denies: dyspnea or pain on inspiration GI: Denies: abdominal pain : Denies: flank pain or hematuria Musc: Reports: back pain and joint pain; Denies: neck pain, extremity pain, extremity swelling or joint swelling Neuro: Denies: headache(s), numbness in extremities, weakness in extremities, sensory changes or dizziness PFS ED PFSH: Medical History Hx of pre-eclampsia in prior , currently Ganglion cyst of dorsum of right wrist Gestational diabetes Vaginal bleeding in No pertinent past medical history Neghx: Htn, DM, Thyroid, DVT/PE PCP: none Surgical History History of surgery on right wrist Hx laparoscopic cholecystectomy 12/29/22 Status post section x 2 H/O oral surgery wisdom teeth extraction Family History Grandmother Breast cancer Paternal grandmother Unknown Family history of thyroid problem Paternal side Denies family history of Colon cancer Ovarian cancer Diabetes Heart disease Hyperlipidemia Hypertension Uterine cancer Stroke Social History Smoking and tobacco/nicotine status: never used tobacco/nicotine Alcohol intake: never Substance/Drug Use: never Current occupation: Works at [employer] Physical Exam Const: COMMON NORMALS: no acute distress, average body habitus, patient oriented x3, no limitations, healthy appearing, alert and well nourished GENERAL APPEARANCE: cooperative ORIENTATION/CONSCIOUSNESS: Yes awake, Yes oriented to person, Yes oriented to place and Yes oriented to time HENMT: COMMON NORMALS: normocephalic and atraumatic HEAD & SCALP: normal to inspection, normocephalic and atraumatic; no Daniel's sign, no hematoma and no raccoon eyes FACE & SINUS: normal facial exam Neck/C-Spine: COMMON NORMALS: full ROM GENERAL: Yes normal visual inspection CERVICAL SPINE: Yes cervical ROM normal, No pain with cervical ROM, No Cervical spine tenderness, No step off deformity and No Paracervical muscle tenderness Chest: COMMONS NORMALS: normal inspection of the chest and normal palpation of entire chest wall GI: INSPECTION: Yes normal to inspection and No abdominal wall ecchymosis AUSCULTATION: Yes normoactive bowel sounds Back/Pelvis: COMMON NORMALS: thoracic and lumbar spine normal to inspection, no thoracic nor lumbar tenderness and thoraco-lumbar ROM normal LUMBAR SPINE/LOWER BACK: Yes paraspinal muscle tenderness (minor right) PELVIS: Yes buttocks normal SACROILIAC JOINTS: Yes SI joints normal SACRUM: no tenderness COCCYX: no tenderness Extremity: COMMON NORMALS: normal to inspection, capillary refill normal, no joint enlargement and no clubbing, cyanosis or edema GENERAL: Yes normal exam except as noted LEFT UPPER EXTREMITY: Yes shoulder joint Left shoulder joint: Yes inspection (normal gross inspection), Yes ROM (limited active ROM but has full passive ROM) and Yes neurovascular exam (normal) and Yes wrist (reports mild discomfort but has full painless ROm) Left wrist: Yes inspection (normal) and Yes neurovascular exam (normal) Neuro: EBER COMA SCALE: document GCS findings Eber coma scale eye opening: Spontaneous Eber coma scale verbal response: Orientated Eber coma scale motor response: Obey commands Eber coma scale total score: 15 COMMON NORMALS: patient oriented x3, moves all extremities, no focal motor deficits, no sensory deficits noted and gait normal SENSORIUM/ORIENTATION: Yes alert, Yes oriented to person, Yes oriented to place and Yes oriented to time SPEECH: speech normal GAIT: Yes Normal gait present Skin: COMMON NORMALS: no rashes or lesions noted GENERAL SKIN EXAM: no rashes or lesions noted TRAUMA: no lacerations or abrasions Course Vital Signs: Vital signs: Vital Signs Temperature 98.1 F 12/12/23 11:20 Pulse Rate 85 12/12/23 11:20 Respiratory Rate 18 12/12/23 11:20 Blood Pressure 115/76 12/12/23 11:20 Pulse Oximetry 98 12/12/23 11:20 Oxygen Delivery Me thod Room Air 12/12/23 11:20 MDM - Fall Medical Decision Making Patient with some minor discomforts to her right back and left wrist. These do not require emergent imaging. She has some left shoulder discomfort and imaging was obtained and found to be negative. Recommend conservative therapies at home. Recommend follow-up with primary care in 2 to 3 weeks if symptoms do not seem to be improving. Medical Records I reviewed the patient's medical records. Lab Data Radiology Impressions Shoulder X-Ray 12/12/23 11:05 IMPRESSION: No acute findings. All radiology interpretation(s) finalized by discharge Discharge Plan Discharge Patient Disposition: Home Clinical Impression: Injury of left shoulder, Fall from stairs Condition: Stable Prescriptions: No Action ondansetron HCl 4 mg tablet 4 mg PO Q6H PRN (Reason: nausea and vomiting) Qty: 20 0RF hydrocodone-acetaminophen 5-325 mg tablet 1 tab PO Q8H PRN (Reason: pain) Qty: 7 0RF ketorolac 10 mg tablet 10 mg PO TID PRN (Reason: pain) Qty: 10 0RF PNV cmb#95-ferrous fumarate-FA [ Multivitamins] 28 mg iron- 800 mcg Tablet 1 tab PO BEDTIME Discharge Orders: Discharge ED (Routine); Ordered 12/12/23 Ordered By: Michelle Francis Referrals: Damion,Yue Rebecca, DO [Primary Care Provider] - Activity Restrictions/Additional Instructions: As we discussed I would like you to do conservative therapies at home such as ice, heat, Tylenol, Motrin. Please reach out to your primary care provider in 2 to 3 weeks if symptoms do not seem to be improving. 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
== END 2023-12-12 11:46 | disposition home or self-care (01) ==
PROVIDERS: Emergency Provider Physician Assistant; PCP Family Medicine
DX: S49.92XA Unspecified injury of left shoulder and upper arm, initial encounter (principal); W10.8XXA Fall (on) (from) other stairs and steps, initial encounter
CPT/HCPCS: 73030; 99283

== ENCOUNTER 2023-12-18 14:36 | Outpatient (CLI) | payer MEDICAID, SELFPAY ==
--- NOTE | 2023-12-18 15:07 | XR_ITS ---
WS: [id number] XR hip RT 2-3V wo/w pel* [id number] REASON FOR EXAM: R HIP JOINT PAIN FINDINGS: No fracture or focal bone lesion. The hip joint space is intact and well preserved. No soft tissue abnormality. XR/XR hip RT 2-3V wo/w pel* [id number] IMPRESSION: No significant abnormality.
== END 2023-12-18 14:37 | disposition home or self-care (01) ==
LOC: RAD 14:40
PROVIDERS: PCP Family Medicine; Visit Provider Family Medicine
DX: M25.551 Pain in right hip (principal)
CPT/HCPCS: 73502

== ENCOUNTER 2023-12-19 21:53 | Emergency (ER) | payer MEDICAID, SELFPAY ==
[2023-12-19 22:05] VITALS: BP 116/64; PULSE 107; RESP 16; TEMP 36.8; O2SAT 99; BMI 26.8
[2023-12-19] MEDS: amoxicillin-clav 875-125 mg Tablet 1 TAB PO (23:02)
[2023-12-19] MEDS: dexamethasone 10 mg/mL INJ 8 MG PO (23:03)
[2023-12-19 23:04] VITALS: PULSE 100; RESP 16; O2SAT 98
--- NOTE | 2023-12-19 23:12 | W.ED.DENTAL ---
Documented by User: BRANDY Wellington 12/19/23 23:17 HPI - Dental/Oral General: Chief complaint: Dental/Oral Stated complaint: dental pain, swelling Time Seen by Provider: 12/19/23 22:11 Source: patient Mode of arrival: ambulatory Limitations: no limitations History of Present Illness: Patient is a 23-year-old female who presents to the emergency department complaining of right upper dental pain onset past couple days. Patient notes she has had this pain 2 times prior where she was diagnosed with dental abscess and treated with antibiotics that made the pain and swelling away. She notes that she has a dental appointment scheduled, however it is not for another month. She notes that she popped something to the right gingiva, that began to bleed and drain, and did give her relief of pain. She took a hydrocodone that she had at home for her pain, this did not do much for patient. She denies any fevers, sore throat, radiation of pain, breathing difficulties, or any other symptoms at this time. MD Complaint: tooth pain Onset (ago): day(s) Duration: constant Severity: moderate Relieving factors: nothing Associated symptoms: Reports no associated symptoms; Denies ear or mastoid pain or fever(s) Treatment prior to arrival: oral analgesic Review of Systems General: Reports: 10 or more systems reviewed and unremarkable except in HPI and below Const: Denies: fever(s), chills or fatigue Eyes: Denies: change in vision ENMT: Reports: dental pain; Denies: throat pain, ear or mastoid pain or nasal discharge Card: Denies: chest pain, palpitations, swelling of feet/ankles or lightheadedness Resp: Denies: dyspnea, productive cough or wheezing GI: Denies: abdominal pain, nausea, vomiting, diarrhea or constipation : Denies: flank pain, difficulty voiding, dysuria or urinary frequency Musc: Denies: neck pain, back pain or joint pain Skin/Breast: Denies: rash Neuro: Denies: headache(s), numbness in extremities or weakness in extremities PFS ED PFSH: Medical History Hx of pre-eclampsia in prior , currently Ganglion cyst of dorsum of right wrist Gestational diabetes Vaginal bleeding in No pertinent past medical history Neghx: Htn, DM, Thyroid, DVT/PE PCP: none Surgical History History of surgery on right wrist Hx laparoscopic cholecystectomy 12/29/22 Status post section x 2 H/O oral surgery wisdom teeth extraction Family History Grandmother Breast cancer Paternal grandmother Unknown Family history of thyroid problem Paternal side Denies family history of Colon cancer Ovarian cancer Diabetes Heart disease Hyperlipidemia Hypertension Uterine cancer Stroke Social History Smoking and tobacco/nicotine status: never used tobacco/nicotine Alcohol intake: never Substance/Drug Use: never Current occupation: Works at [employer] Female Reproductive History: Date of last menstrual period: 12/19/23 Physical Exam Const: COMMON NORMALS: no acute distress and healthy appearing GENERAL APPEARANCE: cooperative, comfortable and well developed HENMT: COMMON NORMALS: normocephalic, atraumatic, hearing grossly normal bilaterally, external ears normal, Normal external nose present and Normal nasal mucous membranes and turbinates present HEAD & SCALP: normal to inspection, normocephalic and atraumatic FACE & SINUS: edema on the right maxilla and Facial tenderness on exam of face and sinuses on the right maxilla NOSE: Normal external nose present, Normal nares present, No nasal polyps present and Normal nasal mucous membranes and turbinates present EXTERNAL EAR: Yes external ears normal MOUTH: Normal oral and palatal mucosa present TEETH & GINGIVA: Yes abnormal tooth and associated gingiva upper right tender, with associated gingival edema and other (Draining, ulcerated lesion to the right upper gingiva) and Yes fair dentition THROAT: posterior oropharynx normal and tonsils normal Eye: COMMON NORMALS: EOMs intact bilaterally, conjunctivae normal and normal visual carter by confrontation GENERAL EYE: appearance normal, both eyes and all related structures CONJUNCTIVA: Yes conjunctivae normal Neck/C-Spine: COMMON NORMALS: full ROM, no lymphadenopathy, supple and no meningeal signs GENERAL: Yes normal visual inspection Chest: COMMONS NORMALS: normal inspection of the chest Resp: COMMON NORMALS: normal respiratory effort and clear to auscultation bilaterally EFFORT & INSPECTION: Yes able to speak in complete sentences AUSCULTATION: clear to auscultation bilaterally Cardio: COMMON NORMALS: regular rate, regular rhythm, S1 normal heart sound present and S2 normal heart sound present RATE: regular rate RHYTHM: regular rhythm HEART SOUNDS: S1 normal heart sound present, S2 normal heart sound present, no gallops, no murmurs and no rubs Extremity: COMMON NORMALS: normal to inspection, full ROM and capillary refill normal Neuro: MENINGEAL SIGNS: Yes no meningeal signs Skin: COMMON NORMALS: no rashes or lesions noted GENERAL SKIN EXAM: no rashes or lesions noted Course Vital Signs: Vital signs: Vital Signs Temperature 98.3 F 12/19/23 22:05 Pulse Rate 100 12/19/23 23:04 Respiratory Rate 16 12/19/23 23:04 Blood Pressure 116/64 12/19/23 22:05 Pulse Oximetry 98 12/19/23 23:04 [facility] - Dental/Oral Medical Decision Making Patient seen for right upper dental pain for the past couple days. She has been seen 2 times prior for this, most recently a month ago where she was prescribed an antibiotic that reportedly improved her pain and symptoms. She also states she got on a waiting list and eventually got an appointment scheduled with the dentist at the beginning of January. She notes that the symptoms returned a couple days ago. On examination she does have evidence of a dental infection, presumably abscess. There is also a broken open ulcerated lesion to the right upper gingiva. I will prescribe her Augmentin, however I urged her to call and expedite her visit, as I explained to her that being treated with multiple antibiotics can cause resistance. I also offered her a dental block, she denied. Also offered shots of Toradol and Decadron, also denied. Will send her home with prescription for Augmentin as well as p.o. Toradol for 5 days. She will take this and use her hydrocodone for breakthrough pain. All her questions and concerns addressed at this time. Return precautions given. No radiology studies performed this visit Discharge Plan Discharge Patient Disposition: Home Clinical Impression: Dental abscess Condition: Stable Prescriptions: New ketorolac 10 mg tablet 10 mg PO Q8H PRN (Reason: pain) 5 Days Qty: 15 0RF amoxicillin-pot clavulanate 875-125 mg tablet 1 tab PO BID 10 Days Qty: 20 0RF No Action ondansetron HCl 4 mg tablet 4 mg PO Q6H PRN (Reason: nausea and vomiting) Qty: 20 0RF hydrocodone-acetaminophen 5-325 mg tablet 1 tab PO Q8H PRN (Reason: pain) Qty: 7 0RF ketorolac 10 mg tablet 10 mg PO TID PRN (Reason: pain) Qty: 10 0RF PNV cmb#95-ferrous fumarate-FA [ Multivitamins] 28 mg iron- 800 mcg Tablet 1 tab PO BEDTIME Discharge Orders: Discharge ED (Routine); Ordered 12/19/23 Ordered By: João Willingham Referrals: Yue Bruno DO [Primary Care Provider] - Discharge Diet: Usual diet Discharge Activity: Increase activity as tolerated Patient Instructions: Dental Abscess (ED) Activity Restrictions/Additional Instructions: Augmentin as prescribed. Toradol as needed for pain. Take your hydrocodone for breakthrough pain at home. Call dentist tomorrow to see if they can expedite your appointment, if not follow-up as planned. Return if you develop any new or concerning symptoms. Coding Level of Care Code ED Molded Rubber Goods Cutter for Chg Fwd Documented by User: Urbano Wiley DO 12/21/23 07:03 HPI - Dental/Oral General: Chief complaint: Dental/Oral Stated complaint: dental pain, swelling Time Seen by Provider: 12/19/23 22:11 PFSH ED PFSH: Medical History Hx of pre-eclampsia in prior , currently Ganglion cyst of dorsum of right wrist Gestational diabetes Vaginal bleeding in No pertinent past medical history Neghx: Htn, DM, Thyroid, DVT/PE PCP: none Surgical History History of surgery on right wrist Hx laparoscopic cholecystectomy 12/29/22 Status post section x 2 H/O oral surgery wisdom teeth extraction Family History Grandmother Breast cancer Paternal grandmother Unknown Family history of thyroid problem Paternal side Denies family history of Colon cancer Ovarian cancer Diabetes Heart disease Hyperlipidemia Hypertension Uterine cancer Stroke Social History Smoking and tobacco/nicotine status: never used tobacco/nicotine Alcohol intake: never Substance/Drug Use: never Current occupation: Works at [employer] Vital Signs: Vital signs: Vital Signs Temperature 98.3 F 12/19/23 22:05 Pulse Rate 100 12/19/23 23:04 Respiratory Rate 16 12/19/23 23:04 Blood Pressure 116/64 12/19/23 22:05 Pulse Oximetry 98 12/19/23 23:04 MDM - Dental/Oral Medical Decision Making Patient seen for right upper dental pain for the past couple days. She has been seen 2 times prior for this, most recently a month ago where she was prescribed an antibiotic that reportedly improved her pain and symptoms. She also states she got on a waiting list and eventually got an appointment scheduled with the dentist at the beginning of January. She notes that the symptoms returned a couple days ago. On examination she does have evidence of a dental infection, presumably abscess. There is also a broken open ulcerated lesion to the right upper gingiva. I will prescribe her Augmentin, however I urged her to call and expedite her visit, as I explained to her that being treated with multiple antibiotics can cause resistance. I also offered her a dental block, she denied. Also offered shots of Toradol and Decadron, also denied. Will send her home with prescription for Augmentin as well as p.o. Toradol for 5 days. She will take this and use her hydrocodone for breakthrough pain. All her questions and concerns addressed at this time. Return precautions given. Chart reviewed Discharge Plan Discharge Patient Disposition: Home Clinical Impression: Dental abscess Condition: Stable Prescriptions: New ketorolac 10 mg tablet 10 mg PO Q8H PRN (Reason: pain) 5 Days Qty: 15 0RF amoxicillin-pot clavulanate 875-125 mg tablet 1 tab PO BID 10 Days Qty: 20 0RF No Action ondansetron HCl 4 mg tablet 4 mg PO Q6H PRN (Reason: nausea and vomiting) Qty: 20 0RF hydrocodone-acetaminophen 5-325 mg tablet 1 tab PO Q8H PRN (Reason: pain) Qty: 7 0RF ketorolac 10 mg tablet 10 mg PO TID PRN (Reason: pain) Qty: 10 0RF PNV cmb#95-ferrous fumarate-FA [ Multivitamins] 28 mg iron- 800 mcg Tablet 1 tab PO BEDTIME Discharge Orders: Discharge ED (Routine); Ordered 12/19/23 Ordered By: João Willingham Referrals: Yue Bruno DO [Primary Care Provider] - Discharge Diet: Usual diet Discharge Activity: Increase activity as tolerated Patient Instructions: Dental Abscess (ED) Activity Restrictions/Additional Instructions: Augmentin as prescribed. Toradol as needed for pain. Take your hydrocodone for breakthrough pain at home. Call dentist tomorrow to see if they can expedite your appointment, if not follow-up as planned. Return if you develop any new or concerning symptoms. Coding Level of Care Code ED Molded Rubber Goods Cutter for Ivett Fernandes
== END 2023-12-19 23:06 | disposition home or self-care (01) ==
PROVIDERS: Emergency Provider Physician Assistant; PCP Family Medicine
DX: K04.7 Periapical abscess without sinus (principal)
CPT/HCPCS: 99283; J1100

== ENCOUNTER 2024-05-03 21:15 | Emergency (ER) | payer MEDICAID, SELFPAY ==
[2024-05-03 21:23] VITALS: BP 113/74; PULSE 88; RESP 18; TEMP 36.7; O2SAT 97
[2024-05-03 22:25] VITALS: BP 122/78; PULSE 104; O2SAT 100
[2024-05-03 22:31] LABS: Basophils # 0.1 10^3/uL (0.0-0.1); Basophils % 0.8 %; Eosinophils # 0.1 10^3/uL (0.0-0.8); Eosinophils % 1.1 %; Hematocrit 40.8 % (36-47); Lymphocytes # 3.4 10^3/uL (0.8-4.8); Lymphocytes % 40.4 %; Mean Corpuscular HGB Conc 31.1 g/dL (30-55); Mean Corpuscular Hemoglobin 26.9 pg (27-33); Mean Corpuscular Volume 86.4 fl (85-98); Mean Platelet Volume 11.6 fL (7.4-10.4); Monocytes # 0.4 10^3/uL (0.2-0.9); Monocytes % 5.2 %; Neutrophils # 4.43 10^3/uL (1.8-7.7); Neutrophils % 52.3 %; Nucleated Red Blood Cells % 0 %; Platelet Count 252 10^3/cmm (157-399); Red Blood Count 4.72 10^6/uL (3.85-5.65); Red Cell Distribution Width 13.5 % (12.1-15.1); White Blood Count 8.48 10^3/uL (3.29-11.43)
[2024-05-03 22:33] VITALS: BP 134/69; PULSE 94; O2SAT 99
[2024-05-03 22:48] LABS: Alanine Aminotransferase 12 U/L (0-33); Albumin Level 4.5 g/dL (3.5-5.2); Alkaline Phosphatase 94 U/L (35-105); Anion Gap 15.1 (5-19); Aspartate Amino Transferase 11 U/L (0-32); Blood Urea Nitrogen 16 mg/dL (6-20); Calcium 9.2 mg/dL (8.5-10.5); Carbon Dioxide 24 mmol/L (22-29); Chloride 104 mmol/L (98-107); Creatinine Clr Calc Pharmacy 131.4894; Globulin 2.9 g/dL (1.3-4.6); Glomerular Filtration Rate 105.6 mL/min (90-130); Glucose 102 mg/dL (65-115); Osmolality Calculated 289 mOsm/kg (285-295); Potassium 4.1 mmol/L (3.5-5.1); Sodium 139 mmol/L (136-145); Total Bilirubin 0.2 mg/dL (0.15-1.2); Total Protein 7.4 g/dL (6.6-8.7)
[2024-05-03 23:06] VITALS: BP 116/73; O2SAT 98
--- NOTE | 2024-05-03 23:12 | ED_ITS ---
HPI - Extremity Problem 2 General: Chief complaint: General Medical Stated complaint: hands are locked up. extreame pain when straighten Time Seen by Provider: 05/03/24 22:19 Source: patient Mode of arrival: ambulatory Limitations: no limitations History of Present Illness: Patient is a 23-year-old female presents to the ED today for evaluation of right finger pain/ locking up . 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 She states today while at work her right index and ring finger were locking up. She has had no injury or trauma. Upon arrival to the emergency department she feels like her symptoms have improved. MD Complaint: extremity pain Onset (ago): hour(s) Pain Consistency: intermittent Location: right and upper extremity Radiation: none Relieving factors: rest Exacerbating factors: other (carrying heavy plates/trays) Associated symptoms: Reports no associated symptoms Related Data Home Medications Medication Instructions Recorded Confirmed vit no.95-ferrous 1 tab PO BEDTIME 12/16/22 09/28/23 fumarate 28 mg-folic acid 800 mcg tablet ( Multivitamins) Previous Rx's Medication Instructions Recorded ondansetron HCl 4 mg tablet 4 mg PO Q6H PRN nausea and 09/28/23 vomiting #20 tabs hydrocodone 5 mg-acetaminophen 325 1 tab PO Q8H PRN pain #7 tabs 11/19/23 mg tablet ibuprofen 600 mg tablet 600 mg PO Q8H PRN pain #14 tabs 05/03/24 methylprednisolone 4 mg tablets in See Rx Instructions PO .COMPLEX 05/03/24 a dose pack (Medrol (Fady)) #21 ea Allergies Allergy/AdvReac Type Severity Reaction Status Date / Time crab Allergy Severe ALGY-Anaphy Verified 05/03/24 21:27 laxis promethazine AdvReac Intermediate ADR-Vomitin Verified 05/03/24 21:27 g Review of Systems 2 Musc: Reports: extremity pain; Denies: extremity swelling, joint pain, joint swelling, joint redness, joint warmth, limited range of motion or muscle cramps PFSH ED 2 PFSH: Medical History Hx of pre-eclampsia in prior , currently Ganglion cyst of dorsum of right wrist Gestational diabetes Vaginal bleeding in No pertinent past medical history Neghx: Htn, DM, Thyroid, DVT/PE PCP: none Surgical History History of surgery on right wrist Hx laparoscopic cholecystectomy 12/29/22 Status post section x 2 H/O oral surgery wisdom teeth extraction Family History Grandmother Breast cancer Paternal grandmother Unknown Family history of thyroid problem Paternal side Denies family history of Colon cancer Ovarian cancer Diabetes Heart disease Hyperlipidemia Hypertension Uterine cancer Stroke Social History Smoking and tobacco/nicotine status: never used tobacco/nicotine Alcohol intake: never Substance/Drug Use: never Current occupation: Works at [employer] History: Date of last menstrual period: 04/26/24 Physical Exam 2 Const: COMMON NORMALS: no acute distress, average body habitus, patient oriented x3, no limitations, healthy appearing, alert and well nourished Extremity: COMMON NORMALS: normal to inspection and full ROM GENERAL: Yes normal exam except as noted RIGHT UPPER EXTREMITY: Yes hand & digits (no tendon injuries; flexion deformities noted; no edema) Right hand and digits: Yes ROM exam (normal), Yes neurovascular exam (normal) and Yes tendon exam (normal) OTHER: maintains full ROM of all digits; some pain to palmar region with flexion only with resistance to R index and ring fingers Neuro: COMMON NORMALS: patient oriented x3, moves all extremities, no focal motor deficits and no sensory deficits noted SENSORIUM/ORIENTATION: Yes alert Course 2 Vital Signs: Vital signs: Vital Signs Temperature 98.1 F 05/03/24 21:23 Pulse Rate 84 05/03/24 23:30 Respiratory Rate 18 05/03/24 21:23 Blood Pressure 117/74 05/03/24 23:30 Pulse Oximetry 99 05/03/24 23:30 Oxygen Delivery Me thod Room Air 05/03/24 21:23 MDM - Extremity (Nontraumatic) Medical Decision Making Patient overall with a fairly normal physical examination. Based on history I suspect overuse injury versus tendinitis. Recommend rest, ice, anti- inflammatories, steroids. She can follow-up with primary care next week if symptoms do not seem to be improving. Medical Records I reviewed the patient's medical records. Lab Data 05/03/24 22:05/03/24: Laboratory Results WBC 8.48 10^3/uL (3.29-11.43) 05/03/24: RBC 4.72 10^6/uL (3.85-5.65) 05/03/24: Hgb 12.70 g/dL (11.27-16.99) 05/03/24: Hct 40.8 % (36-47) 05/03/24: MCV 86.4 fl (85-98) 05/03/24: MCH 26.9 pg (27-33) L 05/03/24: MCHC 31.1 g/dL (30-55) 05/03/24 RDW 13.5 % (12.1-15.1) 05/03/24 Plt Count 252 10^3/cmm (157-399) 05/03/24: MPV 11.6 fL (7.4-10.4) H 05/03/24: Neut % (Auto) 52.3 % 05/03/24: Lymph % (Auto) 40.4 % 05/03/24: Oliver % (Auto) 5.2 % 05/03/24 Eos % (Auto) 1.1 % 05/03/24 Baso % (Auto) 0.8 % 05/03/24 Neut # (Auto) 4.43 10^3/uL (1.8-7.7) 05/03/24 Lymph # (Auto) 3.4 10^3/uL (0.8-4.8) 05/03/24: Oliver # (Auto) 0.4 10^3/uL (0.2-0.9) 05/03/24: Eos # (Auto) 0.1 10^3/uL (0.0-0.8) 05/03/24 Baso # (Auto) 0.1 10^3/uL (0.0-0.1) 05/03/24 Nucleated RBC % (auto) 0 % 05/03/24 Nucleated RBCs # 0.0 /100WBC 05/03/24 22:27 Sodium 139 mmol/L (136-145) 05/03/24 22:27 Potassium 4.1 mmol/L (3.5-5.1) 05/03/24 22:27 Chloride 104 mmol/L (98-107) 05/03/24 22:27 Carbon Dioxide 24 mmol/L (22-29) 05/03/24 22:27 Anion Gap 15.1 (5-19) 05/03/24 22: BUN 16 mg/dL (6-20) 05/03/24 22:27 Creatinine 0.7 mg/dL (0.5-0.9) 05/03/24 22: GFR Calculation 105.6 mL/min (90-130) 05/03/24: Glucose 102 mg/dL (65-115) 05/03/24 22: Calculated Osmolality 289 mOsm/kg (285-295) 05/03/24 22: Calcium 9.2 mg/dL (8.5-10.5) 05/03/24 22: Magnesium 2.0 mg/dL (1.7-2.3) 05/03/24 22: Total Bilirubin 0.2 mg/dL (0.15-1.2) 05/03/24 22: AST 11 U/L (0-32) 05/03/24 22: ALT 12 U/L (0-33) 05/03/24 22:27 Alkaline Phosphatase 94 U/L (35-105) 05/03/24 22:27 Total Protein 7.4 g/dL (6.6-8.7) 05/03/24 22: Albumin 4.5 g/dL (3.5-5.2) 05/03/24 22: Globulin 2.9 g/dL (1.3-4.6) 05/03/24 22:27 No radiology studies performed this visit Discharge Plan Discharge Patient Disposition: Home Clinical Impression: Right hand tendonitis Condition: Stable Prescriptions: New ibuprofen 600 mg tablet 600 mg PO Q8H PRN (Reason: pain) Qty: 14 0RF Medrol (Fady) 4 mg tablets,dose pack See Rx Instructions .ROUTE .COMPLEX Qty: 21 0RF Rx Instructions: orally per package directions Discontinued ketorolac 10 mg tablet 10 mg PO TID PRN (Reason: pain) Qty: 10 0RF No Action ondansetron HCl 4 mg tablet 4 mg PO Q6H PRN (Reason: nausea and vomiting) Qty: 20 0RF hydrocodone-acetaminophen 5-325 mg tablet 1 tab PO Q8H PRN (Reason: pain) Qty: 7 0RF PNV cmb#95-ferrous fumarate-FA [ Multivitamins] 28 mg iron- 800 mcg Tablet 1 tab PO BEDTIME Discharge Orders: Discharge ED (Routine); Ordered 05/03/24 Ordered By: Michelle Francis Referrals: Yue Bruno DO [Primary Care Provider] - Activity Restrictions/Additional Instructions: Your blood work here is unremarkable. As we discussed this most likely is an overuse/injury/tendinitis. Recommend rest, ice, and anti-inflammatory/steroids that you were prescribed. Please follow-up with primary care in a week if symptoms do not seem to be improving. Coding Level of Care Code ED Temperature Regulator Pyrometer for Ivett Fernandes
[2024-05-03 23:30] VITALS: BP 117/74; PULSE 84; O2SAT 99
== END 2024-05-03 23:32 | disposition home or self-care (01) ==
PROVIDERS: Emergency Provider Physician Assistant; PCP Family Medicine
DX: M77.8 Other enthesopathies, not elsewhere classified (principal)
CPT/HCPCS: 36415; 80053; 83735; 85025; 99283

== ENCOUNTER 2024-08-27 02:00 | Emergency (ER) | payer MEDICAID, SELFPAY ==
[2024-08-27 02:14] VITALS: BP 129/89; PULSE 122; RESP 16; TEMP 36.8; O2SAT 99; BMI 25.8
[2024-08-27 02:26] VITALS: BP 129/89; PULSE 115; RESP 16; O2SAT 98
[2024-08-27] MEDS: ondansetron 2 mg/ML SDV 2 mL 8 MG IVP (02:44)
--- NOTE | 2024-08-27 02:48 | ED_ITS ---
HPI - Nausea/Vomiting/Diarrhea 2 General: Chief complaint: Nausea/Vomiting/Diarrhea Stated complaint: ABD Pain Time Seen by Provider: 08/27/24 02:37 History of Present Illness: Healthy 23-year-old female presents emergency room with nausea and vomiting and diarrhea. She has diffuse crampy abdominal pain. Her daughter had similar symptoms over the weekend. No focal abdominal pain. No fevers. She says she feels very dehydrated. She is a bit tachycardic on presentation. Related Data Home Medications Medication Instructions Recorded Confirmed vit no.95-ferrous 1 tab PO BEDTIME 12/16/22 09/28/23 fumarate 28 mg-folic acid 800 mcg tablet ( Multivitamins) Previous Rx's Medication Instructions Recorded ondansetron HCl 4 mg tablet 4 mg PO Q6H PRN nausea and 09/28/23 vomiting #20 tabs hydrocodone 5 mg-acetaminophen 325 1 tab PO Q8H PRN pain #7 tabs 11/19/23 mg tablet ibuprofen 600 mg tablet 600 mg PO Q8H PRN pain #14 tabs 05/03/24 methylprednisolone 4 mg tablets in See Rx Instructions PO .COMPLEX 05/03/24 a dose pack (Medrol (Fady)) #21 ea ondansetron 8 mg disintegrating 8 mg PO Q6H #14 tabs 08/27/24 tablet Allergies Allergy/AdvReac Type Severity Reaction Status Date / Time crab Allergy Severe ALGY-Anaphy Verified 08/27/24 02:19 laxis promethazine AdvReac Intermediate ADR-Vomitin Verified 08/27/24 02:19 g Review of Systems 2 Narrative: Constitutional symptoms: Negative except as documented in HPI. Skin symptoms: Negative except as documented in HPI. Eye symptoms: Negative except as documented in HPI. ENMT symptoms: Negative except as documented in HPI. Respiratory symptoms: Negative except as documented in HPI. Cardiovascular symptoms: Negative except as documented in HPI. Gastrointestinal symptoms: Negative except as documented in HPI. Genitourinary symptoms: Negative except as documented in HPI. Musculoskeletal symptoms: Negative except as documented in HPI. Neurologic symptoms: Negative except as documented in HPI. Psychiatric symptoms: Negative except as documented in HPI. Endocrine symptoms: Negative except as documented in HPI. PFSH ED 2 PFSH: Medical History Hx of pre-eclampsia in prior , currently Ganglion cyst of dorsum of right wrist Gestational diabetes Vaginal bleeding in No pertinent past medical history Neghx: Htn, DM, Thyroid, DVT/PE PCP: none Surgical History History of surgery on right wrist Hx laparoscopic cholecystectomy 12/29/22 Status post section x 2 H/O oral surgery wisdom teeth extraction Family History Grandmother Breast cancer Paternal grandmother Unknown Family history of thyroid problem Paternal side Denies family history of Colon cancer Ovarian cancer Diabetes Heart disease Hyperlipidemia Hypertension Uterine cancer Stroke Social History Smoking and tobacco/nicotine status: never used tobacco/nicotine Alcohol intake: never Substance/Drug Use: never Current occupation: Works at [employer] History: Date of last menstrual period: 08/06/24 Physical Exam 2 Narrative: EXAM NARRATIVE: General: Alert, no acute distress. Skin: Warm, dry. Head: Normocephalic, atraumatic. Neck: Supple, trachea midline. Eye: Extraocular movements are intact. Ears, nose, mouth and throat: Tacky oral mucosa Cardiovascular: Regular, tachycardic, normal peripheral perfusion. Respiratory: Lungs are clear to auscultation, respirations are non-labored, breath sounds are equal, Symmetrical chest wall expansion. Gastrointestinal: Soft, Nontender, Non distended Musculoskeletal: Normal ROM, no deformity. Neurological: Alert and oriented, No focal neurological deficit observed. Psychiatric: Cooperative, appropriate mood & affect. Course 2 Vital Signs: Vital signs: Vital Signs Temperature 98.2 F 08/27/24 02:14 Pulse Rate 115 H 08/27/24 02:26 Respiratory Rate 16 08/27/24 02:26 Blood Pressure 129/89 08/27/24 02:26 Pulse Oximetry 98 08/27/24 02:26 Oxygen Delivery Me thod Room Air 08/27/24 02:26 MDM - Nausea/Vomiting/Diarrhea Medical Decision Making Medical decision making: Differential diagnosis for this patient with nausea and vomiting including but not limited to and based on the above HPI, review of systems and physical exam: Urinary tract infection. Appendicitis. Cholecystis. colitis. small bowel obstruction. crohn's flare. pancreatitis. gastritis. peptic ulcer. cyclic vomiting. Viral illness. Influenza. COVID. - Workup - labwork and imaging ordered to evaluate, rule in and rule out above pathologies. Lab Review: Laboratory results were reviewed and interpreted by myself the emergency room physician. No leukocytosis. No anemia. No renal failure. I reviewed the patient's medical record. Reexamination: Patient is tolerating fluids and seems to be feeling a bit better. Assessment and plan: Viral gastroenteritis Dehydration ? Normal saline bolus, IV Zofran and IV Toradol in the emergency room - Discharged home - Discussed plan with patient. Answered any questions. - Evaluation and treatment of this problem were appropriate in the emergency setting. Lab Data 08/27/24 02:42 08/27/24 02:42 Laboratory Results WBC 6.37 10^3/uL (3.29-11.43) 08/27/24 02:42 RBC 5.32 10^6/uL (3.85-5.65) 08/27/24 02:42 Hgb 14.00 g/dL (11.27-16.99) 08/27/24 02:42 Hct 44.3 % (36-47) 08/27/24 02:42 MCV 83.3 fl (85-98) L 08/27/24 02:42 MCH 26.3 pg (27-33) L 08/27/24 02:42 MCHC 31.6 g/dL (30-55) 08/27/24 02:42 RDW 13.8 % (12.1-15.1) 08/27/24 02:42 Plt Count 194 10^3/cmm (157-399) 08/27/24 02:42 MPV 11.9 fL (7.4-10.4) H 08/27/24 02:42 Neut % (Auto) 86.6 % 08/27/24 02:42 Lymph % (Auto) 8.3 % 08/27/24 02:42 Barron % (Auto) 4.4 % 08/27/24 02:42 Eos % (Auto) 0.2 % 08/27/24 02:42 Baso % (Auto) 0.2 % 08/27/24 02:42 Neut # (Auto) 5.52 10^3/uL (1.8-7.7) 08/27/24 02:42 Lymph # (Auto) 0.5 10^3/uL (0.8-4.8) L 08/27/24 02:42 Barron # (Auto) 0.3 10^3/uL (0.2-0.9) 08/27/24 02:42 Eos # (Auto) 0.0 10^3/uL (0.0-0.8) 08/27/24 02:42 Baso # (Auto) 0.0 10^3/uL (0.0-0.1) 08/27/24 02:42 Nucleated RBC % (auto) 0 % 08/27/24 02:42 Nucleated RBCs # 0.0 /100WBC 08/27/24 02:42 Sodium 141 mmol/L (136-145) 08/27/24 02:42 Potassium 4.1 mmol/L (3.5-5.1) 08/27/24 02:42 Chloride 103 mmol/L (98-107) 08/27/24 02:42 Carbon Dioxide 22 mmol/L (22-29) 08/27/24 02:42 Anion Gap 20.1 (5-19) H 08/27/24 02:42 BUN 16 mg/dL (6-20) 08/27/24 02:42 Creatinine 0.7 mg/dL (0.5-0.9) 08/27/24 02:42 GFR Calculation 105.6 mL/min (90-130) 08/27/24 02:42 Glucose 105 mg/dL (65-115) 08/27/24 02:42 Calculated Osmolality 294 mOsm/kg (285-295) 08/27/24 02:42 Calcium 9.5 mg/dL (8.5-10.5) 08/27/24 02:42 Total Bilirubin 0.8 mg/dL (0.15-1.2) 08/27/24 02:42 AST 9 U/L (0-32) 08/27/24 02:42 ALT 9 U/L (0-33) 08/27/24 02:42 Alkaline Phosphatase 89 U/L (35-105) 08/27/24 02:42 Total Protein 8.0 g/dL (6.6-8.7) 08/27/24 02:42 Albumin 4.9 g/dL (3.5-5.2) 08/27/24 02:42 Globulin 3.1 g/dL (1.3-4.6) 08/27/24 02:42 Lipase 16 U/L (13-60) 08/27/24 02:42 No radiology studies performed this visit Discharge Plan Discharge Patient Disposition: Home Clinical Impression: Gastroenteritis Condition: Stable Prescriptions: New ondansetron 8 mg tablet,disintegrating 8 mg PO Q6H Qty: 14 0RF Rx Instructions: Take 1/2-1 tab every 6 hours as needed for nausea and vomiting No Action ondansetron HCl 4 mg tablet 4 mg PO Q6H PRN (Reason: nausea and vomiting) Qty: 20 0RF hydrocodone-acetaminophen 5-325 mg tablet 1 tab PO Q8H PRN (Reason: pain) Qty: 7 0RF ibuprofen 600 mg tablet 600 mg PO Q8H PRN (Reason: pain) Qty: 14 0RF Medrol (Fady) 4 mg tablets,dose pack See Rx Instructions .ROUTE .COMPLEX Qty: 21 0RF Rx Instructions: orally per package directions [facility] [ Multivitamins] 28 mg iron- 800 mcg Tablet 1 tab PO BEDTIME Discharge Orders: Discharge ED (Routine); Ordered 08/27/24 Ordered By: Lary Pereira Referrals: Yue Bruno DO [Primary Care Provider] - Discharge Diet: Advance as tolerated Patient Instructions: Gastroenteritis (ED), Acute Nausea and Vomiting (ED), Opioid Safety, Pain Management Activity Restrictions/Additional Instructions: Thank you for choosing [facility] for your healthcare needs today. Please realize this is an emergency room and that we are providing you with a medical screening exam and this may not be complete and all inclusive of all the testing and or work up that you may need to determine your ailment or severity of your illness. You have been screened and evaluated and felt safe for discharge. Health conditions do change or evolve sometimes and as such it is important that you follow up with your Primary Doctor to be re checked, 3-5 days is a general good time frame for follow up. You are always welcome to return to the ED for re assessment if your symptoms are worsening or you have new concerns Coding Level of Care Code ED Bread Baker for Ivett Fernandes
[2024-08-27] MEDS: ketorolac 30 mg/mL INJ IVP (02:51)
[2024-08-27] MEDS: sodium chloride 0.9% 1,000 ML 999 ML IV (02:51)
[2024-08-27 02:53] LABS: Basophils % 0.2 %; Eosinophils % 0.2 %; Hematocrit 44.3 % (36-47); Lymphocytes # 0.5 10^3/uL (0.8-4.8); Lymphocytes % 8.3 %; Mean Corpuscular HGB Conc 31.6 g/dL (30-55); Mean Corpuscular Hemoglobin 26.3 pg (27-33); Mean Corpuscular Volume 83.3 fl (85-98); Mean Platelet Volume 11.9 fL (7.4-10.4); Monocytes # 0.3 10^3/uL (0.2-0.9); Monocytes % 4.4 %; Neutrophils # 5.52 10^3/uL (1.8-7.7); Neutrophils % 86.6 %; Nucleated Red Blood Cells % 0 %; Platelet Count 194 10^3/cmm (157-399); Red Blood Count 5.32 10^6/uL (3.85-5.65); Red Cell Distribution Width 13.8 % (12.1-15.1); White Blood Count 6.37 10^3/uL (3.29-11.43)
[2024-08-27 03:10] LABS: Alanine Aminotransferase 9 U/L (0-33); Albumin Level 4.9 g/dL (3.5-5.2); Alkaline Phosphatase 89 U/L (35-105); Anion Gap 20.1 (5-19); Aspartate Amino Transferase 9 U/L (0-32); Blood Urea Nitrogen 16 mg/dL (6-20); Calcium 9.5 mg/dL (8.5-10.5); Carbon Dioxide 22 mmol/L (22-29); Chloride 103 mmol/L (98-107); Creatinine Clr Calc Pharmacy 129.6687; Globulin 3.1 g/dL (1.3-4.6); Glomerular Filtration Rate 105.6 mL/min (90-130); Glucose 105 mg/dL (65-115); Lipase 16 U/L (13-60); Osmolality Calculated 294 mOsm/kg (285-295); Potassium 4.1 mmol/L (3.5-5.1); Sodium 141 mmol/L (136-145); Total Bilirubin 0.8 mg/dL (0.15-1.2)
[2024-08-27 04:25] VITALS: BP 119/74; PULSE 89; RESP 16; O2SAT 100
== END 2024-08-27 04:26 | disposition home or self-care (01) ==
PROVIDERS: Emergency Provider Emergency Medicine; PCP Family Medicine
DX: K52.9 Noninfective gastroenteritis and colitis, unspecified (principal)
CPT/HCPCS: 36415; 80053; 83690; 85025; 96374; 96375; 99284; J1885; J2405; J7030

== ENCOUNTER 2025-02-26 11:44 | Outpatient (CLI) | payer OTHER, MEDICAID, SELFPAY ==
--- NOTE | 2025-02-26 11:53 | XR_ITS ---
WS: [id number] Exam: XR knee LT 3V* [id number] Date/Time of Exam: 02/26/2025 12:15 PM Reason For Exam: PAIN IN LEFT KNEE No fracture. The joint compartments are preserved. No joint effusion. Normal soft tissues. XR/XR knee LT 3V* [id number] IMPRESSION: 1. Negative LEFT knee.
== END 2025-02-26 11:45 | disposition home or self-care (01) ==
PROVIDERS: PCP Family Medicine; Visit Provider Family Medicine
DX: M25.562 Pain in left knee (principal)
CPT/HCPCS: 73562

== ENCOUNTER 2025-03-07 09:15 | Outpatient (CLI) | payer OTHER, MEDICAID, SELFPAY ==
--- NOTE | 2025-03-07 09:25 | MR_ITS ---
WS: [id number] MRI LEFT KNEE HISTORY: L CHRONIC KNEE PAIN COMPARISON: Knee radiographs 02/26/2025 Anterior cruciate ligament: Intact. Posterior cruciate ligament: Intact. Medial collateral ligament: Intact. Posterior lateral corner structures: Intact. Medial menisci: Intact. Normal signal, size and shape. Lateral meniscus: Intact. Normal signal, size and shape. Extensor mechanism: Distal quadriceps tendon and patellar tendons are intact. Fluid and soft tissue: No joint effusion. No Bates's cyst. Osseous and articular structures: Patellofemoral compartment: Mild thinning of cartilage involving the patellar eminence and over the medial patellar facet. No underlying marrow edema. No osteochondral lesions. Medial compartment: Normal. Lateral compartment: Normal. No marrow edema. Sclerotic focus in the femoral condyle consistent with a bone island and also noted on the recent radiograph. MR/MR knee LT con* [id number] IMPRESSION: 1. 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 No underlying marrow edema. 2. Remaining knee is negative.
== END 2025-03-07 09:16 | disposition home or self-care (01) ==
LOC: RAD 09:17
PROVIDERS: PCP Family Medicine; Visit Provider Family Medicine
DX: M22.42 Chondromalacia patellae, left knee (principal)
CPT/HCPCS: 73721

== ENCOUNTER 2025-04-06 17:45 | Emergency (ER) | payer OTHER, MEDICAID, SELFPAY ==
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
[2025-04-06 17:47] VITALS: BP 118/71; PULSE 133; RESP 18; O2SAT 98
--- NOTE | 2025-04-06 17:55 | ECG_ITS ---
[facility] Date: 2025-04-06 Pat Name: Mayra Monique Department: Room: Gender: Female Feather [employer]er: : 2000 Requested By: All Jackson Order Number: [id number] Sivakumar MD: Martin Casey M.D. Measurements Intervals [place] Rate: 132 P: 77 SD: 142 QRS: 38 QRSD: 68 T: 67 QT: 332 QTc: 492 Interpretive Statements SINUS TACHYCARDIA NONSPECIFIC T-WAVE ABNORMALITY Compared to ECG 09/28/2023 10:07:51 No significant changes Electronically Signed On 04-07-2025 13:47:59 CDT by Martin Casey M.D. [email or web address]
--- NOTE | 2025-04-06 18:16 | ED_ITS ---
HPI - Syncope 2 General: Chief Complaint: Syncope Stated Complaint: Fell on Concreate Time Seen by Provider: 04/06/25 17:52 History of Present Illness: This 24-year-old female presents following a witnessed syncopal episode that occurred while helping to push a truck. The patient reports feeling fine prior to the event with no prodromal symptoms, illness, or recent exertion. She was standing when she suddenly lost consciousness and fell to the concrete, striking her head. According to witnesses, she was unconscious for less than one minute without any seizure-like activity or shaking movements. Upon regaining consciousness, the patient was initially disoriented, believing she was still standing. Since the episode, she has developed a headache localized to the posterior aspect of her head, along with nausea and significant fatigue. She also reports pain in her back and buttocks from the fall. The patient denies any recent illness, heavy menstrual bleeding, or . She has been experiencing ongoing stress recently. Related Data Home Medications ?Medication ?Instructions ?Recorded ?Confirmed vit no.95-ferrous 1 tab PO BEDTIME 12/16/22 0 09/28/23 fumarate 28 mg-folic acid 800 mcg tablet ( Multivitamins) Previous Rx's ?Medication ?Instructions ?Recorded ondansetron HCl 4 mg tablet 4 mg PO Q6H PRN nausea and 09/28/23 vomiting #20 tabs hydrocodone 5 mg-acetaminophen 325 1 tab PO Q8H PRN pa in #7 tabs 11/19/23 mg tablet ibuprofen 600 mg tablet 600 mg PO Q8H PRN pain #14 t abs 05/03/24 methylprednisolone 4 mg tablets in See Rx Instructions PO .COMPLEX 05/03/24 a dose pack (Medrol (Fady)) #21 ea ondansetron 8 mg disintegrating 8 mg PO Q6H #14 tabs 0 08/27/24 tablet Allergies Allergy/AdvReac Type Severity Reaction Status Date / Time crab Allergy Severe ALGY-Anaphy Verified 08/27/24 02:19 laxis Alpha-Gal Allergy Unknown Unknown Verified 04/06/25 17:59 (Ktboqzbff-Cywoj-8,3-Gala promethazine AdvReac Intermediate ADR-Vomitin Verified 08/27/24 02:19 g Review of Systems 2 Narrative: Neurological: Headache (posterior), fatigue, initial disorientation post-syncope Gastrointestinal: Nausea, no vomiting Musculoskeletal: Back pain, buttock pain from fall Cardiovascular: No chest pain or palpitations reported Respiratory: No shortness of breath Genitourinary: Recent light menstrual period, denies Constitutional: Denies fever, chills, recent illness HEENT: No vision changes reported Neurological: No numbness, tingling, or other neurological symptoms PFSH ED 2 PFSH: Medical History Hx of pre-eclampsia in prior , currently Ganglion cyst of dorsum of right wrist Gestational diabetes Vaginal bleeding in No pertinent past medical history Neghx: Htn, DM, Thyroid, DVT/PE PCP: none Surgical History History of surgery on right wrist Hx laparoscopic cholecystectomy 12/29/22 Status post section x 2 H/O oral surgery wisdom teeth extraction Family History Grandmother Breast cancer Paternal grandmother Unknown Family history of thyroid problem Paternal side Denies family history of Colon cancer Ovarian cancer Diabetes Heart disease Hyperlipidemia Hypertension Uterine cancer Stroke Social History Smoking and tobacco/nicotine status: never used tobacco/nicotine Alcohol intake: never Substance/Drug Use: never Current occupation: Works at [employer] Physical Exam 2 Const: COMMON NORMALS: no acute distress and patient oriented x3 GENERAL APPEARANCE: cooperative; not ill appearing and not frail appearing HENMT: COMMON NORMALS: normocephalic, atraumatic and Normal external nose present HEAD & SCALP: normocephalic and atraumatic FACE & SINUS: normal facial exam and face symmetric NOSE: Normal external nose present Eye: COMMON NORMALS: Equal, round and reactive pupils present and EOMs intact bilaterally PUPIL: Yes Equal, round and reactive pupils present Neck/C-Spine: GENERAL: Yes trachea midline Chest: CHEST: Yes Symmetrical chest wall rise Resp: COMMON NORMALS: normal respiratory effort, No retractions, No use of accessory muscles and clear to auscultation bilaterally AUSCULTATION: clear to auscultation bilaterally Cardio: COMMON NORMALS: regular rhythm RATE: tachycardic RHYTHM: regular rhythm GI: COMMON NORMALS: Normal to inspection, nondistended, normoactive bowel sounds present Extremity: COMMON NORMALS: no pedal edema Neuro: EBER COMA SCALE: document GCS findings Eber coma scale eye opening: Spontaneous Eber coma scale verbal response: Orientated Eber coma scale motor response: Obey commands [place] coma scale total score: 15 COMMON NORMALS: patient oriented x3 COORDINATION/BALANCE: eyexlp-ii-[id number] test normal and otud-fg-unbm test normal SPEECH: speech normal SENSORY EXAM: Yes extremities (intact) MOTOR EXAM: Pronator motor function not present and Normal motor muscle tone present throughout COORDINATION: atofei-it-dyzg test normal and vhxk-py-abje test normal Psych: COMMON NORMALS: speech normal SPEECH: Yes normal speech Skin: COMMON NORMALS: no rashes or lesions noted GENERAL SKIN EXAM: no rashes or lesions noted Course 2 Vital Signs: Vital signs: Vital Signs Pulse Rate 100 04/06/25 22:10 Respiratory Rate 16 04/06/25 20:30 Blood Pressure 119/80 04/06/25 22:10 Pulse Oximetry 99 04/06/25 22:10 Oxygen Delivery Me thod Room Air 04/06/25 21:30 MDM - Syncope Medical Decision Making 24-year-old female with syncopal episode, followed by head injury. She is tachycardic on arrival. This is improved after 2 L of fluid. Her other vitals are stable. Her saturations are 99% on room air. Her CBC and BMP are normal. Head CT is negative. TSH is on the low side of normal. She has a contaminated urine sample that is nonactionable. Head is somewhat improved after fluid, Toradol, Zofran. She will be discharged home. Return for new or worsening symptoms. Lab Data 04/06/25 18:34 04/06/25 18:[address] 04/06/25 18:27 IMPRESSION: No acute intracranial abnormality. Laboratory Results WBC 7.94 10^3/uL (3.29-11.43) 04/06/25 18:34 RBC 5.03 10^6/uL (3.85-5.65) 04/06/25 18:34 Hgb 12.70 g/dL (11.27-16.99) 04/06/25 18:34 Hct 41.4 % (36-47) 04/06/25 18:34 MCV 82.3 fl (85-98) L 04/06/25 18:34 MCH 25.2 pg (27-33) L 04/06/25 18:34 MCHC 30.7 g/dL (30-55) 04/06/25 18:34 RDW 14.8 % (12.1-15.1) 04/06/25 18:34 Plt Count 260 10^3/cmm (157-399) 04/06/25 18:34 MPV 12.7 fL (7.4-10.4) H 04/06/25 18:34 Neut % (Auto) 69.2 % 04/06/25 18:34 Lymph % (Auto) 23.6 % 04/06/25 18:34 [place] % (Auto) 4.9 % 04/06/25 18:34 Eos % (Auto) 1.3 % 04/06/25 18:34 Baso % (Auto) 0.6 % 04/06/25 18:34 Neut # (Auto) 5.50 10^3/uL (1.8-7.7) 04/06/25 18:34 Lymph # (Auto) 1.9 10^3/uL (0.8-4.8) 04/06/25 18:34 [place] # (Auto) 0.4 10^3/uL (0.2-0.9) 04/06/25 18:34 Eos # (Auto) 0.1 10^3/uL (0.0-0.8) 04/06/25 18:34 Baso # (Auto) 0.1 10^3/uL (0.0-0.1) 04/06/25 18:34 Nucleated RBC % (auto) 0 % 04/06/25 18:34 Nucleated RBCs # 0.0 /100WBC 04/06/25 18:34 Sodium 140 mmol/L (136-145) 04/06/25 18:34 Potassium 4.0 mmol/L (3.5-5.1) 04/06/25 18:34 Chloride 102 mmol/L (98-107) 04/06/25 18:34 Carbon Dioxide 26 mmol/L (22-29) 04/06/25 18:34 Anion Gap 16.0 (5-19) 04/06/25 18:34 BUN 16 mg/dL (6-20) 04/06/25 18:34 Creatinine 0.9 mg/dL (0.5-0.9) 04/06/25 18:34 GFR Calculation 78.3 mL/min (90-130) L 04/06/25 18:34 Glucose 91 mg/dL (65-115) 04/06/25 18:34 Calculated Osmolality 291 mOsm/kg (285-295) 04/06/25 18:34 Calcium 9.4 mg/dL (8.5-10.5) 04/06/25 18:34 Total Bilirubin 0.4 mg/dL (0.15-1.2) 04/06/25 18:34 AST 10 U/L (0-32) 04/06/25 18:34 ALT 11 U/L (0-33) 04/06/25 18:34 Alkaline Phosphatase 87 U/L (35-105) 04/06/25 18:34 Creatine Kinase 62 U/L (26-192) 04/06/25 18:34 Total Protein 7.8 g/dL (6.6-8.7) 04/06/25 18:34 Albumin 4.8 g/dL (3.5-5.2) 04/06/25 18:34 Globulin 3.0 g/dL (1.3-4.6) 04/06/25 18:34 TSH 0.32 uIU/mL (0.27-4.20) 04/06/25 18:34 HCG, Qual Negative (Negative) 04/06/25 18:34 Urine Color Yellow (Yellow) 04/06/25 20:28 Urine Appearance Cloudy (CLEAR) A 04/06/25 20: Urine pH 5.5 (5-7) 04/06/25 20:28 Ur Specific [place] 1.024 (1.005-1.030) 04/06/25 20: Urine Protein Negative (Negative) 04/06/25 20: Urine Glucose (UA) Negative (Normal) 04/06/25 20: Urine Ketones Trace (Negative) 04/06/25 20: Urine Blood Negative (Negative) 04/06/25 20: Urine Nitrate Negative (Negative) 04/06/25 20: Urine Bilirubin Negative (Negative) 04/06/25 20: Urine Urobilinogen 1.0 mg/dL (Negative) 04/06/25 20:28 Ur Leukocyte Esterase 1+ (Negative) A 04/06/25 20:28 Urine RBC 3-5 /hpf (0-2) 04/06/25 20:28 Urine WBC 6-10 /hpf (0-5) 04/06/25 20:28 Ur Squamous Epith Cells 40-55 /hpf (0-5) H 04/06/25 20:28 Amorphous Sediment Not Reportable 04/06/25 20:28 Urine Bacteria 3+ /hpf (NONE) H 04/06/25 20:28 All radiology interpretation(s) finalized by discharge Discharge Plan Discharge Patient Disposition: Home Clinical Impression: Syncope Condition: Stable Prescriptions: No Action ondansetron HCl 4 mg tablet 4 mg PO Q6H PRN (Reason: nausea and vomiting) Qty: 20 0RF hydrocodone-acetaminophen 5-325 mg tablet 1 tab PO Q8H PRN (Reason: pain) Qty: 7 0RF ibuprofen 600 mg tablet 600 mg PO Q8H PRN (Reason: pain) Qty: 14 0RF Medrol (Fady) 4 mg tablets,dose pack See Rx Instructions .ROUTE .COMPLEX Qty: 21 0RF Rx Instructions: orally per package directions PNV no.95-ferrous fumarate-FA [ Multivitamins] 28 mg iron- 800 mcg Tablet 1 tab PO BEDTIME ondansetron 8 mg tablet,disintegrating 8 mg PO Q6H Qty: 14 0RF Rx Instructions: Take 1/2-1 tab every 6 hours as needed for nausea and vomiting Discharge Orders: Discharge ED (Routine); Ordered 04/06/25 Ordered By: All Amanda Referrals: Yue Bruno DO [Primary Care Provider, S[employer] D[employer]] Patient Instructions: Syncope (ED), Opioid Safety, Pain Management, Patient Portal & Luis Miguel Instructions Activity Restrictions/Additional Instructions: Return for repeated episodes of syncope or passing out, worsening headache, mental status changes, weakness, other concerning symptoms rest, stay cool, and hydrate for the next 24 hours. Follow-up with your doctor Stand Alone Forms: Work/School Release Print Language: Latvian Coding Level of Care Code ED Engineering Intern for Ivett Fernandes
--- NOTE | 2025-04-06 18:27 | CTR_ITS ---
PROCEDURE INFORMATION: Exam: CT Head Without Contrast Exam date and time: 04/06/2025 6:48 PM Age: 24 years old Clinical indication: Injury or trauma; Fall; Other: Syncopeal episode; Additional info: Syncope, fall, head inj TECHNIQUE: Imaging protocol: Computed tomography of the head without contrast. Radiation optimization: All CT scans at this facility use at least one of these dose optimization techniques: automated exposure control; mA and/or kV adjustment per patient size (includes targeted exams where dose is matched to clinical indication); or iterative reconstruction. COMPARISON: No relevant prior studies available. RADIATION DOSE METRICS: Total DLP (mGy-cm): 1011.68 FINDINGS: Brain: Normal. No hemorrhage. Unremarkable white matter. No mass effect. Cerebral ventricles: No ventriculomegaly. Paranasal sinuses: Visualized sinuses are unremarkable. No fluid levels. Mastoid air cells: Visualized mastoid air cells are well aerated. Bones: Unremarkable. No acute fracture. Soft tissues: Unremarkable. CT/CT head wo con* [id number] IMPRESSION: No acute intracranial abnormality.
[2025-04-06 18:46] VITALS: BP 105/73; BP 109/71; BP 114/54; PULSE 102; PULSE 110; PULSE 125
[2025-04-06 18:46] LABS: Hematocrit 41.4 % (36-47); Hemoglobin 12.70 g/dL (11.27-16.99); Mean Corpuscular HGB Conc 30.7 g/dL (30-55); Mean Corpuscular Hemoglobin 25.2 pg (27-33); Mean Corpuscular Volume 82.3 fl (85-98); Nucleated Red Blood Cells % 0 %; Platelet Count 260 10^3/cmm (157-399); Red Blood Count 5.03 10^6/uL (3.85-5.65); White Blood Count 7.94 10^3/uL (3.29-11.43)
[2025-04-06 19:09] LABS: HCG, Serum Qual Negative (Negative)
[2025-04-06 19:19] LABS: Alanine Aminotransferase 11 U/L (0-33); Albumin Level 4.8 g/dL (3.5-5.2); Alkaline Phosphatase 87 U/L (35-105); Anion Gap 16.0 (5-19); Aspartate Amino Transferase 10 U/L (0-32); Blood Urea Nitrogen 16 mg/dL (6-20); Calcium 9.4 mg/dL (8.5-10.5); Carbon Dioxide 26 mmol/L (22-29); Chloride 102 mmol/L (98-107); Creatinine Clr Calc Pharmacy 94.9507; Globulin 3.0 g/dL (1.3-4.6); Glucose 91 mg/dL (65-115); Osmolality Calculated 291 mOsm/kg (285-295); Potassium 4.0 mmol/L (3.5-5.1); Sodium 140 mmol/L (136-145); Thyroid Stimulating Hormone 0.32 uIU/mL (0.27-4.20); Total Protein 7.8 g/dL (6.6-8.7)
[2025-04-06] MEDS: ondansetron 2 mg/ML SDV 2 mL 4 MG IVP (19:50)
[2025-04-06 19:52] VITALS: BP 125/77; PULSE 97; O2SAT 100
[2025-04-06 20:30] VITALS: BP 120/69; PULSE 106; RESP 16; O2SAT 100
[2025-04-06 20:37] LABS: Glucose Urine UA Negative (Normal); Nitrate Urine Negative (Negative); Specific Gravity, Urine 1.024 (1.005-1.030)
[2025-04-06 21:30] VITALS: BP 110/68; PULSE 10; O2SAT 99
[2025-04-06 21:37] LABS: Add Urine Microscopic? YES; UA Manual Slide Review YES; UA Slide Review UA Slide Review Perf
[2025-04-06 22:10] VITALS: BP 119/80; PULSE 100; O2SAT 99
== END 2025-04-06 22:11 | disposition home or self-care (01) ==
PROVIDERS: Emergency Provider Emergency Medicine; PCP Family Medicine
DX: R55 Syncope and collapse (principal)
CPT/HCPCS: 36415; 70450; 80053; 81001; 82550; 84443; 84703; 85025; 93005; 96361; 96374; 96375; 99285; J1885; J2405; J7030

== ENCOUNTER 2025-05-10 17:33 | Emergency (ER) | payer OTHER, MEDICAID, SELFPAY ==
[2025-05-10] VITALS (8 sets, daily range): BP systolic 83–119; BP diastolic 56–76; PULSE 90–103; RESP 20; TEMP 36.8; O2SAT 98–100; BMI 21.9
--- NOTE | 2025-05-10 17:47 | ECG_ITS ---
[facility] Test Date: 2025-05-10 Pat Name: Holland Arnold Department: Room: Gender: Female Admitting Supervisor: : 2000 Requested By: Rafaela Saravia Order Number: [id number] Sivakumar MD: Rodriguez Pleitez M.D. Measurements Intervals [place] Rate: 102 P: 44 NC: 120 QRS: 45 QRSD: 82 T: 51 QT: 361 QTc: 470 Interpretive Statements SINUS TACHYCARDIA ABNORMAL RHYTHM ECG No previous ECG available for comparison Electronically Signed On 05-10-2025 20:07:02 CDT by Rodriguez Pleitez M.D. [email or web address]
--- NOTE | 2025-05-10 17:47 | CTR_ITS ---
PROCEDURE INFORMATION: Exam: CT Head Without Contrast Exam date and time: 05/10/2025 6:05 PM Age: 24 years old Clinical indication: EMS arrival for seizure; Additional info: New onset seizure TECHNIQUE: Imaging protocol: Computed tomography of the head without contrast. Radiation optimization: All CT scans at this facility use at least one of these dose optimization techniques: automated exposure control; mA and/or kV adjustment per patient size (includes targeted exams where dose is matched to clinical indication); or iterative reconstruction. COMPARISON: CT head wo con* [id number] 04/06/2025 6:48 PM RADIATION DOSE METRICS: Total DLP (mGy-cm): 1012.65 FINDINGS: Brain: Normal. No hemorrhage. Unremarkable white matter. No mass effect. Cerebral ventricles: No ventriculomegaly. Paranasal sinuses: Visualized sinuses are unremarkable. No fluid levels. Mastoid air cells: Visualized mastoid air cells are well aerated. Bones: Unremarkable. No acute fracture. Soft tissues: Unremarkable. CT/CT head wo con* [id number] IMPRESSION: No acute intracranial abnormality.
--- NOTE | 2025-05-10 18:01 | W.ED.SYNCOPE ---
HPI - Syncope General: Chief Complaint: Syncope Stated Complaint: syncope Time Seen by Provider: 05/10/25 17:46 History of Present Illness: Selected Entries 05/10/25 17:36 ED Triage Comment PT IS FROM HOME , PT WAS OUTSIDE WIT H BF . BF HEARD A NOISE AND NOTICED PT WAS ON THE GROU ND SEIZING. EMS STATES PT HAD SMO KED WEED BEFORE EP ISODE. EMS DENIES HX OF SEIZURES. Patient is a pleasant 24-year-old female that was in her normal state of health, that was outside just after smoking THC, and had a fall dropped to the ground. She has never had a seizure, epilepsy, and no family history. This was directly after smoking marijuana. Blood pressure in triage was 88/58. EKG was obtained which shows a normal sinus rhythm. Patient appears postictal on initial interview. She remembers all events before, and after. She states that she was confused after she fell. She did not have dizziness as per her history prior to her fall. Boyfriend noted tonic-clonic shaking. She did not have any urinary incontinence or tongue biting. Associated symptoms: Reports lightheadedness and vertigo; Deny abdominal pain, chest pain, fever(s), headache(s) or nausea Related Data Home Medications ?Medication ?Instructions ?Recorded ?Confirmed vit no.95-ferrous 1 tab PO BEDTIME 12/16/22 09/28/23 fumarate 28 mg-folic acid 800 mcg tablet ( Multivitamins) Previous Rx's ?Medication ?Instructions ?Recorded ondansetron HCl 4 mg tablet 4 mg PO Q6H PRN nausea and 09/28/23 vomiting #20 tabs hydrocodone 5 mg-acetaminophen 325 1 tab PO Q8H PRN pain #7 tabs 11/19/23 mg tablet ibuprofen 600 mg tablet 600 mg PO Q8H PRN pain #14 tabs 05/03/24 methylprednisolone 4 mg tablets in See Rx Instructions PO .COMPLEX 05/03/24 a dose pack (Medrol (Fady)) #21 ea ondansetron 8 mg disintegrating 8 mg PO Q6H #14 tabs 08/27/24 tablet levetiracetam 500 mg tablet 500 mg PO BID 1 month #60 tabs 05/10/25 (Keppra) sulfamethoxazole 800 1 tab PO BID #20 tabs 09/20/25 mg-trimethoprim 160 mg tablet (Bactrim DS) Allergies Allergy/AdvReac Type Severity Reaction Status Date / Time crab Allergy Severe ALGY-Anaphy Verified 08/27/24 02:19 laxis Alpha-Gal Allergy Unknown Unknown Verified 04/06/25 17:59 (Fvowwtuur-Nxjqz-9,3-Gala promethazine AdvReac Intermediate ADR-Vomitin Verified 08/27/24 02:19 g Review of Systems General: Reports: 10 or more systems reviewed and unremarkable except in HPI and below Const: Denies: fever(s), chills, change in appetite or malaise Eyes: Denies: change in vision or blurry vision ENMT: Denies: throat pain or mouth pain Card: Reports: lightheadedness; Denies: chest pain or palpitations Resp: Denies: dyspnea or productive cough GI: Denies: abdominal pain, nausea or vomiting : Denies: flank pain or difficulty voiding Musc: Denies: neck pain, back pain or extremity pain Skin/Breast: Denies: rash or pruritus Neuro: Reports: dizziness, vertigo and confusion; Denies: headache(s), numbness in extremities, weakness in extremities or frequent falls Psych: Denies: anxiety, depression or panic attacks PFSH ED PFSH: Medical History (Updated 05/10/25 @ 19:53 by BRANDY Martínez) Hx of pre-eclampsia in prior , currently Ganglion cyst of dorsum of right wrist Gestational diabetes Vaginal bleeding in No pertinent past medical history Neghx: Htn, DM, Thyroid, DVT/PE PCP: none Surgical History History of surgery on right wrist Hx laparoscopic cholecystectomy 12/29/22 Status post section x 2 H/O oral surgery wisdom teeth extraction Family History Grandmother Breast cancer Paternal grandmother Unknown Family history of thyroid problem Paternal side Denies family history of Colon cancer Ovarian cancer Diabetes Heart disease Hyperlipidemia Hypertension Uterine cancer Stroke Social History Smoking and tobacco/nicotine status: never used tobacco/nicotine Alcohol intake: never Substance/Drug Use: never Current occupation: Works at [employer] Physical Exam Const: COMMON NORMALS: no acute distress, average body habitus, patient oriented x3 and alert EXAM LIMITATIONS: altered mental status HENMT: COMMON NORMALS: normocephalic, atraumatic and hearing grossly normal bilaterally HEAD & SCALP: normocephalic and atraumatic Eye: COMMON NORMALS: Equal, round and reactive pupils present, EOMs intact bilaterally, conjunctivae normal and no scleral icterus CONJUNCTIVA: Yes conjunctivae normal PUPIL: Yes Equal, round and reactive pupils present Neck/C-Spine: COMMON NORMALS: full ROM and no lymphadenopathy Lymph: LYMPHATIC: no lymphadenopathy noted Chest: COMMONS NORMALS: normal inspection of the chest and normal palpation of entire chest wall Resp: COMMON NORMALS: normal respiratory effort, No retractions and clear to auscultation bilaterally AUSCULTATION: clear to auscultation bilaterally Cardio: COMMON NORMALS: regular rate and regular rhythm RATE: regular rate RHYTHM: regular rhythm GI: COMMON NORMALS: Normal to inspection, nondistended, normoactive bowel sounds present, Soft to palpation and non-tender PALPATION: Yes Soft to palpation : COMMON NORMALS: Yes no CVA tenderness BLADDER/KIDNEY EXAM: Yes no CVA tenderness Back/Pelvis: COMMON NORMALS: no CVA tenderness Extremity: COMMON NORMALS: normal to inspection, full ROM and capillary refill normal GENERAL: Yes normal exam except as noted Neuro: COMMON NORMALS: patient oriented x3, CN's II-XII intact bilaterally and moves all extremities SENSORIUM/ORIENTATION: Yes alert and Yes fluctuating sensorium (Slow to respond, oriented) SPEECH: expressive aphasia Psych: COMMON NORMALS: mental status grossly normal, Normal thought process present and cooperative THOUGHT PROCESS: Normal thought process present Course Vital Signs: Vital signs: Vital Signs Temperature 98.2 F 05/10/25 17:36 Pulse Rate 97 05/10/25 20:47 Respiratory Rate 20 H 05/10/25 17:36 Blood Pressure 116/71 05/10/25 20:47 Pulse Oximetry 100 05/10/25 20:47 Oxygen Delivery Me thod Room Air 05/10/25 20:30 MDM - Syncope Medical Decision Making Patient is a 24-year-old female that had a drop tonic-clonic seizure without history of epilepsy. This was a significant history with just intake of THC. Unknown if this was from a dispensary or a delta 8 which has been known to cause some issues in the local area. Check routine labs plus UA, plus prolactin and lactic acid. Seizure precautions Patient does appear to have symptoms consistent with seizures. She was loaded on Keppra, and Keppra sent to the pharmacy. She had multiple abnormalities in her labs that were of concerning for AL L versus CLL. 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 She will need flow cytometry that is not offered out of the ED, as well as a peripheral stain. Discussed with patient she will need to follow-up with hematology and this is quite pertinent. As well, I did make a referral to hematology/oncology. Patient is also to see neurology for new onset seizures. This could be related to current hematological issue. As well, thrombocytosis by itself has been associated with seizure disorder. This will need to be looked at by hematology. Patient was addressed from both the standpoint of the cause, by referral to hematology, and the concern of seizure, with referral to neurology. Patient is not to drive and was given precautions, as well not to bathe or swim by herself. She states understanding to these concerns. Medical Records I reviewed the patient's medical records. Lab Data I reviewed the patient's lab results. 05/10/25 17:12 05/10/25 17:[address] 05/10/25 17:47 IMPRESSION: No acute intracranial abnormality. Laboratory Results WBC 14.16 10^3/uL (3.29-11.43) H 05/10/25 17:12 RBC 4.98 10^6/uL (3.85-5.65) 05/10/25 17:12 Hgb 12.20 g/dL (11.27-16.99) 05/10/25 17:12 Hct 40.5 % (36-47) 05/10/25 17:12 MCV 81.3 fl (85-98) L 05/10/25 17:12 MCH 24.5 pg (27-33) L 05/10/25 17:12 MCHC 30.1 g/dL (30-55) 05/10/25 17:12 RDW 14.4 % (12.1-15.1) 05/10/25 17:12 Plt Count 416 10^3/cmm (157-399) H 05/10/25 17:12 MPV 12.2 fL (7.4-10.4) H 05/10/25 17:12 Lymph % (Auto) Not Reportable 05/10/25 17:12 Carbon % (Auto) Not Reportable 05/10/25 17:12 Lymph # (Auto) Not Reportable 05/10/25 17:12 Carbon # (Auto) Not Reportable 05/10/25 17:12 Total Counted 100 (0-100) 05/10/25 17:12 Atypical Lymphs % 14.0 % (0-5) H 05/10/25 17:12 Absolute Neutrophils 7.5 10^3/cmm (1.4-6.5) H 05/10/25 17:12 Segmented Neutrophils 52 % 05/10/25 17:12 Band Neutrophils 1.0 % 05/10/25 17:12 Absolute Lymphocytes 5.9 10^3/cmm (1.2-3.4) H 05/10/25 17:12 Lymphocytes (Manual) 28 % 05/10/25 17:12 Monocytes (Manual) 5.0 % 05/10/25 17:12 Absolute Monocytes 0.7 10^3/cmm (0.1-0.6) H 05/10/25 17:12 Eosinophils (Manual) 0 % 05/10/25 17:12 Absolute Eosinophils 0.0 10^3/cmm (0.0-0.7) 05/10/25 17:12 Basophils (Manual) 0.0 % 05/10/25 17:12 Absolute Basophils 0.0 10^3/cmm (0.0-0.2) 05/10/25 17:12 Smudge Cells Trace 05/10/25 17:12 Platelet Estimate Increased (Normal) H 05/10/25 17:12 Ovalocytes Trace 05/10/25 17:12 Sodium 138 mmol/L (136-145) 05/10/25 17:12 Potassium 3.2 mmol/L (3.5-5.1) L 05/10/25 17:12 Chloride 103 mmol/L (98-107) 05/10/25 17:12 Carbon Dioxide 20 mmol/L (22-29) L 05/10/25 17:12 Anion Gap 18.2 (5-19) 05/10/25 17:12 BUN 9 mg/dL (6-20) 05/10/25 17:12 Creatinine 0.8 mg/dL (0.5-0.9) 05/10/25 17:12 GFR Calculation 89.7 mL/min (90-130) L 05/10/25 17:12 Glucose 118 mg/dL (65-115) H 05/10/25 17:12 Calculated Osmolality 286 mOsm/kg (285-295) 05/10/25 17:12 Lactic Acid 3.9 mmol/L (0.5-2.2) H 05/10/25 17:12 Lactic Acid (Sepsis) 1.8 mmol/L (0.5-2.2) 05/10/25 19:54 Calcium 9.3 mg/dL (8.5-10.5) 05/10/25 17:12 Magnesium 2.2 mg/dL (1.7-2.3) 05/10/25 17:12 Total Bilirubin 0.8 mg/dL (0.15-1.2) 05/10/25 17:12 AST 11 U/L (0-32) 05/10/25 17:12 ALT 10 U/L (0-33) 05/10/25 17:12 Alkaline Phosphatase 98 U/L (35-105) 05/10/25 17:12 Total Protein 8.0 g/dL (6.6-8.7) 05/10/25 17:12 Albumin 4.9 g/dL (3.5-5.2) 05/10/25 17:12 Globulin 3.1 g/dL (1.3-4.6) 05/10/25 17:12 Prolactin 82.74 ng/mL (4.8-23.3) H 05/10/25 17:12 HCG, Qual Negative (Negative) 05/10/25 18:20 Urine Color Yellow (Yellow) 05/10/25 18:20 Urine Appearance Cloudy (CLEAR) A 05/10/25 18:20 Urine pH 6.5 (5-7) 05/10/25 18:20 Ur Specific [place] 1.012 (1.005-1.030) 05/10/25 18:20 Urine Protein Negative (Negative) 05/10/25 18:20 Urine Glucose (UA) Negative (Normal) 05/10/25 18:20 Urine Ketones Trace (Negative) 05/10/25 18:20 Urine Blood Negative (Negative) 05/10/25 18:20 Urine Nitrate Positive (Negative) A 05/10/25 18:20 Urine Bilirubin Negative (Negative) 05/10/25 18:20 Urine Urobilinogen 1.0 mg/dL (Negative) 05/10/25 18:20 Ur Leukocyte Esterase 1+ (Negative) A 05/10/25 18:20 Urine RBC 0-2 /hpf (0-2) 05/10/25 18:20 Urine WBC 6-10 /hpf (0-5) 05/10/25 18:20 Ur Squamous Epith Cells 0-5 /hpf (0-5) 05/10/25 18:20 Amorphous Sediment Not Reportable 05/10/25 18:20 Urine Bacteria 4+ /hpf (NONE) H 05/10/25 18:20 Hyaline Casts 0.40 /lpf 05/10/25 18:20 Urine Opiates Screen Negative ng/mL (Negative) 05/10/25 18:20 Ur Barbiturates Screen Negative ng/mL (Negative) 05/10/25 18:20 Ur Phencyclidine Scrn Negative ng/mL (Negative) 05/10/25 18:20 Ur Amphetamines Screen Negative ng/mL (Negative) 05/10/25 18:20 U Benzodiazepines Scrn Negative ng/mL (Negative) 05/10/25 18:20 Urine Cocaine Screen Negative ng/mL (Negative) 05/10/25 18:20 U Marijuana (THC) Screen Positive ng/mL (Negative) H 05/10/25 18:20 All radiology interpretation(s) finalized by discharge EKG Data EKG 1: Interpretation: Normal sinus rhythm, normal axis, sinus tachycardia at 102, QTc is 419, MT is 120 Discharge Plan Discharge Patient Disposition: Home Clinical Impression: Pyuria, Hypokalemia, Neutrophilic leukocytosis Epilepsy Qualifiers: Epilepsy type: partial symptomatic Partial seizure type: with complex partial seizures Intractability: not intractable Status epilepticus: without status epilepticus Qualified Code(s): 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 - Localization-related (focal) (partial) symptomatic epilepsy and epileptic syndromes with complex partial seizures, not intractable, without status epilepticus Condition: Stable Prescriptions: New levetiracetam [Keppra] 500 mg tablet 500 mg PO BID 30 Days Qty: 60 0RF sulfamethoxazole-trimethoprim [Bactrim DS] 800-160 mg tablet 1 tab PO BID Qty: 20 0RF No Action ondansetron HCl 4 mg tablet 4 mg PO Q6H PRN (Reason: nausea and vomiting) Qty: 20 0RF hydrocodone-acetaminophen 5-325 mg tablet 1 tab PO Q8H PRN (Reason: pain) Qty: 7 0RF ibuprofen 600 mg tablet 600 mg PO Q8H PRN (Reason: pain) Qty: 14 0RF Medrol (Fady) 4 mg tablets,dose pack See Rx Instructions .ROUTE .COMPLEX Qty: 21 0RF Rx Instructions: orally per package directions PNV no.95-ferrous fumarate-FA [ Multivitamins] 28 mg iron- 800 mcg Tablet 1 tab PO BEDTIME ondansetron 8 mg tablet,disintegrating 8 mg PO Q6H Qty: 14 0RF Rx Instructions: Take 1/2-1 tab every 6 hours as needed for nausea and vomiting Discharge Orders: Discharge ED (Routine); Ordered 05/10/25 Ordered By: Rafaela Saravia Referrals: Kimberlee Herrera MD [Physician, Neurology] - 1 week Referral Note: New onset seizure Naima Gavin MD [Hospitalist, Oncology] - 7-10 days Yue Bruno DO [Primary Care Provider, MEDICAL LABORATORY MANAGER] Discharge Diet: Usual diet Discharge Activity: Limit activity as instructed Patient Instructions: Epilepsy (ED), Patient Portal & Luis Miguel Instructions Activity Restrictions/Additional Instructions: - No marijuana -You will need to follow-up with both doctors at neurology, and hematology - You cannot drive at this time until cleared by neurology - You cannot take a bath alone without being observed. You cannot swim alone. No high-impact sports - Return to ED if you have worsening causes or seizures. - No alcohol - Take your antiseizure medication as directed. This was sent to the pharmacy. - If case management has not gotten a hold to you about an appointment with hematology and neurology on Monday, call and ask about your referral. It is essential that you follow-up. - You also have a UTI, for which you have been provided medication for if this does not correspond to the culture, the nurse will call you. 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
[2025-05-10 18:02] LABS: Hematocrit 40.5 % (36-47); Hemoglobin 12.20 g/dL (11.27-16.99); Mean Corpuscular HGB Conc 30.1 g/dL (30-55); Mean Corpuscular Hemoglobin 24.5 pg (27-33); Mean Corpuscular Volume 81.3 fl (85-98); Platelet Count 416 10^3/cmm (157-399); Red Blood Count 4.98 10^6/uL (3.85-5.65); White Blood Count 14.16 10^3/uL (3.29-11.43)
[2025-05-10 18:31] LABS: Glucose Urine UA Negative (Normal); Nitrate Urine Positive (Negative); Specific Gravity, Urine 1.012 (1.005-1.030)
[2025-05-10 18:34] LABS: Add Urine Microscopic? YES
[2025-05-10 18:35] LABS: Alanine Aminotransferase 10 U/L (0-33); Albumin Level 4.9 g/dL (3.5-5.2); Alkaline Phosphatase 98 U/L (35-105); Anion Gap 18.2 (5-19); Aspartate Amino Transferase 11 U/L (0-32); Blood Urea Nitrogen 9 mg/dL (6-20); Calcium 9.3 mg/dL (8.5-10.5); Carbon Dioxide 20 mmol/L (22-29); Chloride 103 mmol/L (98-107); Creatinine Clr Calc Pharmacy 104.9242; Globulin 3.1 g/dL (1.3-4.6); Glucose 118 mg/dL (65-115); Magnesium 2.2 mg/dL (1.7-2.3); Osmolality Calculated 286 mOsm/kg (285-295); Potassium 3.2 mmol/L (3.5-5.1); Sodium 138 mmol/L (136-145); Total Protein 8.0 g/dL (6.6-8.7)
[2025-05-10 18:38] LABS: PCP Screen Urine Negative (Negative)
[2025-05-10 18:38] LABS: Lactic Sepsis W/Reflex 3.9 mmol/L (0.5-2.2)
[2025-05-10 18:48] LABS: Reflex Lactate Order REFLEX LACTIC ORDERD
[2025-05-10 18:53] LABS: Slide Review Slide Review Perform
[2025-05-10 19:18] LABS: Absolute Segmented Neutrophil 7.4 10/cmm (1.6-7.1); Atypical Lymphs 14.0 % (0-5); Band Neutrophils Absolute 0.1 10^3/cmm (0.0-1.2); Total Cells Counted 100 (0-100)
[2025-05-10 19:20] LABS: Ovalocytes Trace; Smudge Cells Trace
[2025-05-10] MEDS: cefTRIAXone 1,000 mg SDV 1000 MG IVP (19:55)
[2025-05-10] MEDS: levETIRAcetam 1,500 MG/100 ML PREMIX 400 MG IV (19:57)
[2025-05-10 20:03] LABS: HCG Qualitative Urine. Negative (Negative)
[2025-05-10 20:15] LABS: Lactic Acid level (Lactate) 1.8 mmol/L (0.5-2.2)
== END 2025-05-10 20:49 | disposition home or self-care (01) ==
PROVIDERS: Emergency Provider Physician Assistant; PCP Family Medicine
DX: G40.209 Localization-related (focal) (partial) symptomatic epilepsy and epileptic syndromes with complex partial seizures, not intractable, without status epilepticus (principal); R82.81 Pyuria; E87.6 Hypokalemia; D72.828 Other elevated white blood cell count
CPT/HCPCS: 36415; 70450; 80053; 80306; 81001; 81025; 83605; 83735; 84146; 85007; 85025; 87077; 87086; 87186; 93005; 96361; 96365; 96375; 99285; J0696; J1953; J7030; J7120; J9999

== ENCOUNTER 2025-06-04 10:30 | Oncology outpatient (recurring) (ONCR) | payer MEDICAID, SELFPAY ==
[2025-05-21 09:27] LABS: Hematocrit 36.0 % (36-47); Hemoglobin 10.80 g/dL (11.27-16.99); Mean Corpuscular HGB Conc 30.0 g/dL (30-55); Mean Corpuscular Hemoglobin 25.2 pg (27-33); Mean Corpuscular Volume 83.9 fl (85-98); Nucleated Red Blood Cells % 0 %; Platelet Count 232 10^3/cmm (157-399); Red Blood Count 4.29 10^6/uL (3.85-5.65); White Blood Count 6.08 10^3/uL (3.29-11.43)
[2025-05-21 09:46] LABS: Ferritin 8 ng/mL (15-150); Iron 26 ug/dL (37-145); Total Iron Binding Capacity 397 mcg/dl; Unsaturated Iron Binding 371 ug/dL (112-347)
[2025-05-21 10:16] LABS: LAB Peripheral Smear Sent for Review
[2025-05-22 14:06] LABS: Leukemia Profile (BBPL) See Report
== END 2025-06-20 23:59 | disposition home or self-care (01) ==
PROVIDERS: Internal Medicine; PCP Family Medicine; Visit Provider Internal Medicine
DX: D50.9 Iron deficiency anemia, unspecified (principal)
CPT/HCPCS: 36415; 80503; 82728; 83540; 83550; 84238; 85025; 88184; 88185

== ENCOUNTER 2025-06-16 06:59 | Emergency (ER) | payer MEDICAID, SELFPAY ==
[2025-06-16 07:05] VITALS: BP 120/69; PULSE 98; RESP 16; TEMP 36.8; O2SAT 100; BMI 21.7
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
--- OUTSIDE RECORDS SUMMARY | 2025-06-16 07:11 | XMS_ITS | Encounter Summary ---
Author Organization [facility] Address [address] [place] [address] Care Team Providers Care Sizing Machine Operator Name Role Phone Unavailable Primary Care Provider Unavailabl e Encounter Details Date Type Department Care Team ([facility] Contact Info) Description 06/09/2025 Orders Only [facility] Cancer and Hematology [place] [address] [phone] Nancy Freeman MD [address] [address] Thrombocytosis (Primary Dx) Social History Tobacco Use Types Packs/Day Years Used Date Smoking Tobacco: Never Assessed Comments Unknown Sex and Gender Information Value Date Recorded Sex Assigned at Not on file Legal Sex Female 12:05 PM CDT Gender Identity Not on file Sexual Orientation Not on file documented as of this encounter Plan of Treatment Upcoming Encounters Date Type Department Care Team ([facility] Contact Info) Description 06/18/2025 10:00 AM CDT Appointment [facility] Suzanne [facility] Laboratory Services [address] [phone] Nancy Freeman MD [address] [phone] 06/25/2025 3:20 PM CHIEF DATA OFFICER Office Visit [facility] Cancer and Hematology [place] [address] [phone] Nancy Freeman MD [address] [phone] Scheduled Orders Name Type Priority Associated Diagnoses Orde r Schedule CBC WITH DIFFERENTIAL Lab Stat Thrombocytosis Expected: 06/09/2025, Expires: 06/09/2026 COMPREHENSIVE METABOLIC PANEL Lab Stat Thrombocytosis Expected: 06/09/2025, Expires: 06/09/2026 FLOW CYTOMETRY PANEL Lab Stat Thrombocytosis Expected: 06/18/2025, Expires: 06/19/2026 documented as of this encounter Visit Diagnoses Diagnosis Thrombocytosis- Primary Essential thrombocythemia documented in this encounter
--- OUTSIDE RECORDS SUMMARY | 2025-06-16 07:11 | XMS_ITS | Encounter Summary ---
Author Organization [facility] Address [address] [place] [address] Care Team Providers Care [employer] Name Role Phone Unavailable Primary Care Provider Unavailabl e Reason for Referral * Laboratory Services (Routine) - Open Specialty Diagnoses / Procedures Referred By Contac t Referred To Contact Diagnoses Thrombocytosis Procedures BCR/ABL1, QUANTITATIVE W/REFLEX Nancy Freeman MD [address] [address] Phone: tel: fax: Referral ID Status Reason Start Date Expiration Date Visits Re quested Visits Authorized [id number] Open 06/09/2025 07/10/2026 1 1 Encounter Details Date Type Department Care Team (Late Contact Info) Description 06/09/2025 Orders Only [facility] Cancer and Hematology [place] [address] [facility] [address] [place] [address] Nancy Freeman MD [address] [address] Thrombocytosis (Primary Dx) Social History [...] Upcoming Encounters Date Type Department Care Team (Late Contact Info) Description 06/18/2025 10:00 AM CDT Appointment [facility] Laboratory Services [address] [facility] [address] [place] [id number] Nancy Freeman MD [address] [phone] 06/25/2025 3:20 PM 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 Office Visit [facility] Cancer and Hematology [place] [address] [facility] [address] [place] [address] Nancy Freeman MD [address] [address] Scheduled Orders Name Type Priority Associated Diagnoses Orde r Schedule BCR/ABL1, QUANTITATIVE W/REFLEX Lab Routine Thrombocytosis Expected: 06/21/2025, Expires: 06/09/2026 MISCELLANEOUS LAB TEST Lab Routine Thrombocytosis Expected: 06/09/2025, Expires: 06/09/2026 LACTATE DEHYDROGENASE Lab Routine Thrombocytosis Expected: 06/09/2025, Expires: 06/09/2026 RETICULOCYTES Lab Routine Thrombocytosis Expected: 06/09/2025, Expires: 06/09/2026 documented as of this encounter Visit Diagnoses Diagnosis Thrombocytosis- Primary Essential thrombocythemia documented in this encounter
--- OUTSIDE RECORDS SUMMARY | 2025-06-16 07:11 | XMS_ITS | Clinical Summary ---
Author Organization [facility] Address [address] [place] [address] Phone Care Team Providers Care Knot Bumper Name Role Phone Unavailable Primary Care Provider Unavailabl e Encounters Date Type Department Care Team Description 06/09/2025 Orders Only [facility] Cancer and Hematology [place] [address] [phone] Nancy Freeman MD Thrombocytosis (Primary Dx) 06/09/2025 Orders Only [facility] Cancer [facility] Hemat[facility] [place] [address] [phone] Nancy Freeman MD Thrombocytosis (Primary Dx) 05/21/2025 Abstract [facility] [place] [address] [phone] Provider, Abstract from Last 3 Months Social History Tobacco Use Types Packs/Day Years Used Date Smoking Tobacco: Never Assessed Comments Unknown Sex and Gender Information Value Date Recorded Sex Assigned at Not on file Legal Sex Female 12:05 PM CDT Gender Identity Not on file Sexual Orientation Not on file Plan of Treatment Upcoming Encounters Date Type Department Care Team (Late st Contact Info) Description 06/18/2025 10:00 AM CDT Appointment [facility] Services [address] [phone] Nancy Freeman MD [address] [phone] 06/25/2025 3:20 PM 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
--- NOTE | 2025-06-16 07:16 | PC.NURSE ---
Visual acuity exam; 20/20 left eye, 20/50 right eye
[2025-06-16] MEDS: tetracaine 0.5% Op Soln 4 mL Btl 1 DROP EYE-RIGHT (07:19)
[2025-06-16 07:23] VITALS: BP 120/69; PULSE 98; O2SAT 100
== END 2025-06-16 07:24 | disposition home or self-care (01) ==
PROVIDERS: Emergency Provider Emergency Medicine; PCP Family Medicine
DX: H57.11 Ocular pain, right eye (principal); Z72.0 Tobacco use
CPT/HCPCS: 99283; J9999

== ENCOUNTER 2025-06-24 04:42 | Emergency (ER) | payer MEDICAID, SELFPAY ==
--- OUTSIDE RECORDS SUMMARY | 2025-06-24 04:48 | XMS_ITS | Clinical Summary ---
Author Organization [facility] Address [address] [place] [address] Phone Care Team Providers Care Manager Android Name Role Phone Unavailable Primary Care Provider Unavailabl e Encounters Date Type Department Care Team Description 06/09/2025 Orders Only [facility] Cancer and Hematology [place] [address] [phone] Nancy Freeman MD Thrombocytosis (Primary Dx) 06/09/2025 Orders Only [facility] Cancer and Hematology [place] [address] [phone] Nancy Freeman MD Thrombocytosis (Primary Dx) 05/21/2025 Abstract [facility] Cancer and Hematology [place] [address] [phone] Provider, Abstract from Last 3 [...] Care Team (Late st Contact Info) Description 06/25/2025 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
[2025-06-24 04:50] VITALS: BP 109/72; PULSE 113; RESP 18; TEMP 36.7; O2SAT 99; BMI 21.7
--- NOTE | 2025-06-24 06:09 | XR_ITS ---
WS: [id number] Thoracic spine, 3 views, 06/24/2025 Clinical Data: back pain Comparison: None. Findings: No compression fractures are seen. The disc heights are normal. The paravertebral regions are normal. There are right upper quadrant cholecystectomy clips. XR/XR thoracic spine 3V* [id number] Impression: Negative thoracic spine.
--- NOTE | 2025-06-24 06:12 | W.ED.BACK ---
HPI - Back Pain/Injury General: Chief Complaint: Back Pain/Injury Stated Complaint: Middle Back Pain Time Seen by Provider: 06/24/25 06:05 Source: patient Mode of arrival: ambulatory Limitations: no limitations History of Present Illness: 24-year-old female states she has been having thoracic back pain since Monday. States the pains along her spine much worse with palpation and movement. She denies any specific injuries. She denies any dysuria or abdominal pain denies any fevers. States pains are sharp in nature rates it a 6 out of 10 is improved with rest Related Data Home Medications ?Medication ?Instructions ?Recorded ?Confirmed nitrofurantoin macrocrystal 100 mg 100 mg PO BID 05/21/25 05/21/25 capsule Previous Rx's ?Medication ?Instructions ?Recorded ibuprofen 600 mg tablet 600 mg PO Q8H PRN pain #14 tabs 05/03/24 sulfamethoxazole 800 1 tab PO BID #20 tabs 05/10/25 mg-trimethoprim 160 mg tablet (Bactrim DS) ferrous sulfate 325 mg (65 mg 325 mg PO BID #60 tabs 06/04/25 iron) tablet naproxen 500 mg tablet (Naprosyn) 500 mg PO BID PRN pain #20 tabs 06/16/25 naproxen 500 mg tablet (Naprosyn) 500 mg PO BID PRN pain #20 tabs 06/24/25 Allergies Allergy/AdvReac Type Severity Reaction Status Date / Time crab Allergy Severe ALGY-Anaphy Verified 06/24/25 06:30 laxis Alpha-Gal Allergy Unknown Unknown Verified 06/24/25 06:30 ([id number],3-Gala promethazine AdvReac Intermediate ADR-Vomitin Verified 06/24/25 06:30 g Review of Systems Musc: Reports: back pain PFS ED PFSH: Medical History Hx of pre-eclampsia in prior , currently Ganglion cyst of dorsum of right wrist Gestational diabetes Vaginal bleeding in No pertinent past medical history Neghx: Htn, DM, Thyroid, DVT/PE PCP: none Surgical History History of surgery on right wrist Hx laparoscopic cholecystectomy 12/29/22 Status post section x 2 H/O oral surgery wisdom teeth extraction Family History Grandmother Breast cancer Paternal grandmother Unknown Family history of thyroid problem Paternal side Denies family history of Colon cancer Ovarian cancer Diabetes Heart disease Hyperlipidemia Hypertension Uterine cancer Stroke Social History Smoking and tobacco/nicotine status: current every day tobacco/nicotine user Alcohol intake: never Substance/Drug Use: never Current occupation: Works at [employer] Physical Exam Const: COMMON NORMALS: no acute distress, patient oriented x3 and healthy appearing HENMT: COMMON NORMALS: normocephalic and atraumatic HEAD & SCALP: normocephalic and atraumatic Neck/C-Spine: COMMON NORMALS: full ROM and supple Chest: COMMONS NORMALS: normal inspection of the chest Resp: COMMON NORMALS: normal respiratory effort, No retractions, No use of accessory muscles and clear to auscultation bilaterally AUSCULTATION: clear to auscultation bilaterally Cardio: COMMON NORMALS: regular rate, regular rhythm and No murmurs present (Cardio) RATE: regular rate RHYTHM: regular rhythm GI: COMMON NORMALS: Normal to inspection, nondistended, normoactive bowel sounds present, Soft to palpation, non-tender and no masses PALPATION: Yes Soft to palpation Back/Pelvis: OTHER: Paraspinal tenderness along thoracic spine Extremity: COMMON NORMALS: normal to inspection and full ROM Neuro: COMMON NORMALS: patient oriented x3, moves all extremities and no focal motor deficits Psych: COMMON NORMALS: mental status grossly normal, Normal thought process present and cooperative THOUGHT PROCESS: Normal thought process present Skin: COMMON NORMALS: no rashes or lesions noted and no wounds GENERAL SKIN EXAM: no rashes or lesions noted Course Vital Signs: Vital signs: Vital Signs Temperature 98.0 F 06/24/25 04:50 Pulse Rate 113 H 06/24/25 04:50 Respiratory Rate 18 06/24/25 04:50 Blood Pressure 109/72 06/24/25 04:50 Pulse Oximetry 99 06/24/25 04:50 Oxygen Delivery Me thod Room Air 06/24/25 04:50 MDM - Back Pain/Injury Medical Decision Making Patient presents here with thoracic back pain differential includes cord compression, fracture, epidural abscess. Patient's exam here is benign she has paraspinal tenderness pain is likely muscular in nature. She has no signs of epidural abscess no fever no signs of cord compression. X-ray here interpreted by me shows no acute fractures or abnormalities. Did give her Robaxin and Naprosyn here will prescribe her Naprosyn for home she states she already has a muscle laxer. I informed her to rest and ice as well. I did go over her x-ray findings with her she is to follow-up with her PCP and return if worsening she understands agrees to plan. Medical Records I reviewed the patient's medical records. XR interpretation done by ED provider, pending radiology final review ED provider radiology interpretation(s): xr thoracic spine: no acute abnormality Discharge Plan Discharge Patient Disposition: Home Clinical Impression: Back pain, thoracic Qualifiers: Chronicity: acute Back pain laterality: bilateral Qualified Code(s): M54.6 - Pain in thoracic spine Condition: Stable Prescriptions: New naproxen [Naprosyn] 500 mg tablet 500 mg PO BID PRN (Reason: pain) Qty: 20 0RF No Action nitrofurantoin macrocrystal 100 mg capsule 100 mg PO BID Rx Instructions: must administer with a meal/food ferrous sulfate 325 mg (65 mg iron) tablet 325 mg PO BID Qty: 60 5RF ibuprofen 600 mg tablet 600 mg PO Q8H PRN (Reason: pain) Qty: 14 0RF sulfamethoxazole-trimethoprim [Bactrim DS] 800-160 mg tablet 1 tab PO BID Qty: 20 0RF naproxen [Naprosyn] 500 mg tablet 500 mg PO BID PRN (Reason: pain) Qty: 20 0RF Discharge Orders: Discharge ED (Routine); Ordered 06/24/25 Ordered By: Roxanna Mason Referrals: Yue Bruno DO [Primary Care Provider, FORENSIC SCIENTIST] - 4-7 days Discharge Diet: Advance as tolerated Discharge Activity: Resume usual activity Patient Instructions: Back Pain (ED) Print Language: Swedish Coding Level of Care Code ED Can Filling Machine Operator for Ivett Fernandes
== END 2025-06-24 07:25 | disposition home or self-care (01) ==
PROVIDERS: Emergency Provider Emergency Medicine; PCP Family Medicine
DX: M54.6 Pain in thoracic spine (principal); Z72.0 Tobacco use
CPT/HCPCS: 72072; 99283; J9999